=== PATIENT | male | born 1960 | race Two or more races ===

== ENCOUNTER 2016-12-12 20:30 | Emergency (ER) | payer OTHER ==
[~2016-12-12] VITALS: Ht 170.2 cm; Wt 108.0 kg
[~2016-12-12 20:30] MED LIST: AMLO5TAB4 PO; ASPI-495 PO; ATOR20TA PO; BLOO-129 IN; CARV12.52 PO; CYCL-289 PO; GABA-534 PO; GLIP10TA11 PO; HYDR12.5 PO
[2016-12-12 20:50] VITALS: BP 145/83
[2016-12-12 21:16] LABS: BASOPHILS # (AUTO) 0.1 /CMM (0.0-0.2); BASOPHILS % (AUTO) 0.4 % (0.0-2.0); EOSINOPHILS # (AUTO) 0.8 /CMM (0.0-0.7); EOSINOPHILS % (AUTO) 5.1 % (0.0-6.0); HEMATOCRIT 37 % (39-51); HEMOGLOBIN 12.3 g/dL (13.5-17.5); LYMPHOCYTES # (AUTO) 1.9 /CMM (0.8-4.8); LYMPHOCYTES % (AUTO) 12.9 % (20.0-44.0); MEAN CORPUSCULAR HEMOGLOBIN 29 PG (26.0-33.0); MEAN CORPUSCULAR HGB CONC 34 g/dl (31.0-36.0); MEAN CORPUSCULAR VOLUME 86 fL (80-96); MONOCYTES # (AUTO) 0.7 /CMM (0.1-1.30); MONOCYTES % (AUTO) 4.6 % (2.0-12.0); NEUTROPHILS # (AUTO) 11.3 /CMM (1.8-8.9); PLATELET COUNT (AUTO) 256 /CMM (150-450); RED BLOOD CELL COUNT(AUTO) 4.26 MIL/uL (4.5-6.0); WHITE BLOOD COUNT (AUTO) 14.8 K/uL (4.3-11.0)
--- NOTE | 2016-12-12 21:20 | NUR ---
AUTO DESIGN DETAILER AT FOR BLOOD DRAW.
[2016-12-12 21:24] LABS: CALCIUM, SERUM 8.1 mg/dL (8.5-10.1); CREATININE 4.7 mg/dL (0.6-1.3); POTASSIUM 4.3 mmol/L (3.5-5.1)
--- NOTE | 2016-12-12 22:55 | NUR ---
DPatient discharged to home in stable condition. Written and verbal after care instructions given. Patient verbalizes understanding of instruction.
== END 2016-12-12 22:57 | disposition home or self-care (01) ==
LOC: ER 20:33
DX: L02.31 Cutaneous abscess of buttock (principal); I12.9 Hypertensive chronic kidney disease with stage 1 through stage 4 chronic kidney disease, or unspecified chronic kidney disease; N18.9 Chronic kidney disease, unspecified; F17.200 Nicotine dependence, unspecified, uncomplicated; E11.22 Type 2 diabetes mellitus with diabetic chronic kidney disease; Z79.4 Long term (current) use of insulin; Z79.82 Long term (current) use of aspirin; Z86.718 Personal history of other venous thrombosis and embolism
CPT/HCPCS: 36415; 80048-TC; 85025-TC; A4606; Z7610

== ENCOUNTER 2017-03-14 12:59 | Inpatient (IN) | payer OTHER ==
[~2017-03-14] VITALS: Ht 172.7 cm; Wt 108.9 kg
--- NOTE | 2017-03-14 13:15 | NUR ---
ESTEFANÍA FROM HOME FOR NAUSEA, VOMITING AND DIZZINESS X YESTERDAY. PER REPORT HE HAD A RECENT EAR INFECTION AND WAS STARTED ON ABX. DENIES FEVER. VSS. SAFETY AND COMFORT MEASURES PROVIDED. WILL MONITOR.
--- NOTE | 2017-03-14 13:40 | NUR ---
IV ACCESS STARTED. BLOOD DRAWN FOR LABS.
[2017-03-14] MEDS ORDERED: PROCHLORPERAZINE EDISYLATE 10 MG/2 ML VIAL ONE (14:38)
[2017-03-14 14:45] LABS: BASOPHILS # (AUTO) 0.1 /CMM (0.0-0.2); BASOPHILS % (AUTO) 0.7 % (0.0-2.0); EOSINOPHILS # (AUTO) 0.5 /CMM (0.0-0.7); EOSINOPHILS % (AUTO) 4.3 % (0.0-6.0); HEMATOCRIT 40 % (39-51); HEMOGLOBIN 13.2 g/dL (13.5-17.5); LYMPHOCYTES # (AUTO) 1.8 /CMM (0.8-4.8); LYMPHOCYTES % (AUTO) 14.1 % (20.0-44.0); MEAN CORPUSCULAR HEMOGLOBIN 28 PG (26.0-33.0); MEAN CORPUSCULAR HGB CONC 33 g/dl (31.0-36.0); MEAN CORPUSCULAR VOLUME 85 fL (80-96); MONOCYTES # (AUTO) 0.4 /CMM (0.1-1.30); MONOCYTES % (AUTO) 3.1 % (2.0-12.0); NEUTROPHILS # (AUTO) 9.8 /CMM (1.8-8.9); NEUTROPHILS % (AUTO) 77.8 % (43.0-81.0); PLATELET COUNT (AUTO) 325 /CMM (150-450); RDW COEFFICIENT OF VARIATION 13.2 (11.5-15.0); RED BLOOD CELL COUNT(AUTO) 4.67 MIL/uL (4.5-6.0); WHITE BLOOD COUNT (AUTO) 12.6 K/uL (4.3-11.0)
[2017-03-14 14:58] LABS: ALBUMIN 3.2 g/dL (3.4-5.0); BILIRUBIN,TOTAL 0.3 mg/dL (0.2-1.0); CALCIUM, SERUM 8.6 mg/dL (8.5-10.1); CREATININE 4.7 mg/dL (0.6-1.3); POTASSIUM 4.5 mmol/L (3.5-5.1); TOTAL PROTEIN, SERUM 7.7 g/dL (6.4-8.2)
[2017-03-14] MEDS ORDERED: IV NS 0.9% 1,000 ML BAG IV ONE (15:00)
[2017-03-14] MEDS ORDERED: PROCHLORPERAZINE EDISYLATE 10 MG/2 ML VIAL IV ONE (15:00)
[2017-03-14] MEDS ORDERED: PROMETHAZINE HCL 25 MG/ML AMPUL ONE (15:10)
[2017-03-14] MEDS ORDERED: CEFEPIME 2 GM in IV NS 0.9% 100 ML IV ONE (15:30)
[2017-03-14] MEDS ORDERED: CEFEPIME 2 GM in IV D5W 100 ML IV SCH (15:30)
[2017-03-14] MEDS ORDERED: PROMETHAZINE HCL 50 MG/ML AMPUL IM ONE (15:30)
--- NOTE | 2017-03-14 15:35 | NUR ---
PT TAKEN TO CT.
[2017-03-14] MEDS ORDERED: HYDROCODONE/APAP 5/325MG 1 EACH TABLET PO PRN (16:30)
[2017-03-14] MEDS ORDERED: ACETAMINOPHEN 325 MG TABLET PO PRN (16:30)
[2017-03-14] MEDS ORDERED: ENOXAPARIN SODIUM 40 MG/0.4 ML DISP.SYRIN SQ SCH (16:30)
[2017-03-14] MEDS ORDERED: DEXTROSE 50%-WATER 50 ML DISP.SYRIN IV PRN (16:30)
[2017-03-14] MEDS ORDERED: MAGNESIUM HYDROXIDE 30 ML UDC PO PRN (16:30)
[2017-03-14] MEDS ORDERED: MAG HYDROX/AL HYDROX/SIMETH 30 ML UDC PO PRN (16:30)
[2017-03-14] MEDS ORDERED: HYDROCODONE/APAP 10/325MG 1 EA TABLET PO PRN (16:30)
[2017-03-14] MEDS ORDERED: ONDANSETRON HCL/PF 4 MG/2 ML VIAL IVP PRN (16:30)
--- NOTE | 2017-03-14 16:43 | NUR ---
REPORT GIVEN TO [facility] FOR MS [id number].
[2017-03-14 17:00] VITALS: BP 123/78
--- NOTE | 2017-03-14 17:00 | NUR ---
MS RN: ADMISSION NOTED PT CAME FROM HOME. PT ADMITTED FROM ER WITH DX OF VERTIGO DUE TO PREVIOUS EAR INFECTION. NO N/V NOTED. PT STILL DIZZY. A/OX4. NO DISTRESS NOTED. NO SOB NOTED. NO PAIN NOTED. AMBULATORY. UNABLE TO AMBULATE DUE TO VERTIGO. URINAL AT BEDSIDE. BSC. FALL RISK IN PLACE. SKIN INTACT. BLE DRYNESS ON FEET. R HAND #20 SL. SITE CLEAR AND PATENT. NO REDNESS OR BLEEDING NOTED. VS STABLE. BP 123/78, PULSE 84, RR18, TEMP 97.2, O2 99% ON ROOM AIR. ORDERED NOT TO DRAW BLOOD OR TAKE BLOOD PRESSURE ON LEFT ARM. ONLY USE RIGHT ARM. RESTING COMFORTABLY IN BED. CALL LIGHT WITHIN REACH.
[2017-03-14] MEDS: GABAPENTIN 300 MG CAPSULE PO SCH (17:38)
[2017-03-14] MEDS: CARVEDILOL 12.5 MG TABLET PO SCH (17:38)
[2017-03-14] MEDS: IV NS 0.9% 1,000 ML IV PRN (17:38)
[2017-03-14] MEDS: BLOOD SUGAR DIAGNOSTIC 1 EACH STRIP VI SCH ×2 (17:40→21:41)
[2017-03-14] MEDS: ENOXAPARIN SODIUM 30 MG/0.3 ML DISP.SYRIN SQ SCH (17:43)
[2017-03-14] MEDS: INSULIN REGULAR, HUMAN 100 UNIT/ML 3 ML VIAL SQ PRN (18:32)
--- NOTE | 2017-03-14 18:44 | NUR ---
MS RN: CLOSING NOTE A/OX4. PT TOOK ALL MEDICATION ON TIME. NO ADVERSE REACTIONS NOTED. NO PAIN NOTED. VERTIGO IS DECREASED. ABLE TO AMBULATE. USES URINAL. SKIN INTACT. BLE FEET DRYNESS. WOUND CONSULT ORDERED. ON [facility] DIET. INSULIN GIVEN PER SLIDING SCALE. R HAND #22 RUNNING NS AT 75ML/HR. SITE CLEAR AND PATENT. DO NOT USE LEFT HAND FOR ANYTHING. NO LAB DRAWS OR BP CHECKS. GOING TO HAVE PORT INSERTED IN THE FUTURE FOR DIALYSIS. RESTING COMFORTABLY IN BED. CALL LIGHT WITHIN REACH.
--- NOTE | 2017-03-14 19:25 | NUR ---
RN OPEN NOTES RECEIVED PATIENT AWAKE IN BED WITH FAMILY AT BEDSIDE. A/O X4. NO SIGNS OF DISTRESS OR DISCOMFORT. BREATHING EVEN AND UNLABORED. IV ACCESS IN R HAND WITH NS INFUSING, PATENT AND INTACT, NO SIGNS OF REDNESS OR INFILTRATION. BED IN LOW LOCKED POSITION WITH SIDE RAILS X2. CALL LIGHT WITHIN REACH. WILL CONTINUE TO MONITOR.
[2017-03-14 20:00] VITALS: BP 149/81
[2017-03-14] MEDS ORDERED: CEFEPIME 1 GM in IV D5W 50 ML IV SCH (21:00)
[2017-03-14] MEDS: *INSULIN REGULAR(HUMULIN R)HUM 100 UNIT/ML VIAL SQ PRN (21:40)
[2017-03-15 05:29] LABS: APPEARANCE,URINE CLEAR (CLEAR); BILIRUBIN,URINE NEGATIVE (NEGATIVE); BLOOD, URINE 1+ Ery/uL (NEGATIVE); COLOR,URINE YELLOW (YELLOW); KETONES,URINE NEGATIVE (NEGATIVE); LEUKOCYTE ESTERASE ,URINE NEGATIVE (NEGATIVE); NITRITE, URINE NEGATIVE (NEGATIVE); PROTEIN,URINE 3+ mg/dl (NEGATIVE); UGLUCOSE 3+ mg/dL (NEGATIVE); UROBILINOGEN,URINE 0.2 EU/dL (0.2)
[2017-03-15 05:43] LABS: BACTERIA,URINE None seen /HPF (None Seen); RBC,URINE 0-2 /HPF (0-2); SQUAMOUS EPITHELIAL CELL,UR Few /HPF (None Seen)
[2017-03-15 05:44] LABS: COARSE GRANULAR CASTS,URINE Few /LPF (None Seen); HYALINE CASTS, URINE Few /LPF (None Seen); URINE AMORPHOUS URATE Few /HPF (None Seen)
[2017-03-15] MEDS: BLOOD SUGAR DIAGNOSTIC 1 EACH STRIP VI SCH ×4 (06:49→21:53)
[2017-03-15] MEDS: IV NS 0.9% 1,000 ML IV PRN (07:08)
--- NOTE | 2017-03-15 07:19 | NUR ---
RN CLOSING NOTES PATIENT AWAKE IN BED WITH FAMILY AT BEDSIDE. A/O X4. NO SIGNS OF DISTRESS OR DISCOMFORT. BREATHING EVEN AND UNLABORED. IV ACCESS IN R HAND WITH NS INFUSING, PATENT AND INTACT, NO SIGNS OF REDNESS OR INFILTRATION. NO SIGNIFICANT CHANGES THROUGH THE NIGHT. ALL NEEDS MET. BED IN LOW LOCKED POSITION WITH SIDE RAILS X2. CALL LIGHT WITHIN REACH. WILL ENDORSE TO AM SHIFT FOR [place].
--- NOTE | 2017-03-15 07:30 | NUR ---
MS JOANNA OPENING RECEIVED PATIENT A/OX4 SITTING UP IN BED. PATIENT C/O OF WORSENING DIZZINESS WHEN LAYING DOWN AND GETS BETTER WHEN SITTING UP. PATIENT STATES HE IS WALKING TO RESTROOM ON HIS OWN. EDUCATED PATIENT ON FALL PREVENTION AND NOTIFIED TO NOT WALK WITHOUT STAND BY ASSIST DUE TO DIZZINESS. WALKER PROVIDED TO PATIENT HOWEVER HE HAS REFUSED. BED ALARM ON. AFTER EDUCATED ON FALL PRECAUTIONS PATIENT CONTINUES TO GET OUT OF BED WITHOUT CALLING FOR ASSISTANCE. PATIENT DENIES SOB, DIFFICULTY BREATHING OR PAIN AT THIS TIME. APPEARS STABLE. ALL NEEDS IN REACH. WILL ROUND Q2H OR LESS PER NEEDS. PATIENT BED LOWERED AND LOCKED, RAILS UPX3. BED ALARM PUT ON FOR PATIENT SAFETY.
[2017-03-15 07:34] LABS: BASOPHILS # (AUTO) 0.1 /CMM (0.0-0.2); BASOPHILS % (AUTO) 0.8 % (0.0-2.0); EOSINOPHILS # (AUTO) 0.6 /CMM (0.0-0.7); HEMATOCRIT 36 % (39-51); HEMOGLOBIN 12.1 g/dL (13.5-17.5); LYMPHOCYTES # (AUTO) 2.5 /CMM (0.8-4.8); LYMPHOCYTES % (AUTO) 17.7 % (20.0-44.0); MEAN CORPUSCULAR HEMOGLOBIN 29 PG (26.0-33.0); MEAN CORPUSCULAR HGB CONC 33 g/dl (31.0-36.0); MEAN CORPUSCULAR VOLUME 86 fL (80-96); MONOCYTES # (AUTO) 0.6 /CMM (0.1-1.30); NEUTROPHILS # (AUTO) 10.5 /CMM (1.8-8.9); NEUTROPHILS % (AUTO) 73.5 % (43.0-81.0); PLATELET COUNT (AUTO) 275 /CMM (150-450); RDW COEFFICIENT OF VARIATION 14.1 (11.5-15.0); RED BLOOD CELL COUNT(AUTO) 4.19 MIL/uL (4.5-6.0); WHITE BLOOD COUNT (AUTO) 14.3 K/uL (4.3-11.0)
[2017-03-15 07:43] LABS: CALCIUM, SERUM 8.5 mg/dL (8.5-10.1); CREATININE 4.5 mg/dL (0.6-1.3); MAGNESIUM 1.7 mg/dL (1.8-2.4); PHOSPHORUS 4.6 mg/dL (2.5-4.9); POTASSIUM 4.5 mmol/L (3.5-5.1)
[2017-03-15 08:00] VITALS: BP 134/75
[2017-03-15] MEDS: ATORVASTATIN 10 MG TABLET PO SCH (08:38)
[2017-03-15] MEDS: AMLODIPINE BESYLATE 5 MG TABLET PO SCH (08:38)
[2017-03-15] MEDS: GABAPENTIN 300 MG CAPSULE PO SCH ×3 (08:38→16:48)
[2017-03-15] MEDS: ASPIRIN EC 81 MG TABLET.DR PO SCH (08:38)
[2017-03-15] MEDS: CARVEDILOL 12.5 MG TABLET PO SCH ×2 (08:38→16:51)
[2017-03-15] MEDS: CYCLOBENZAPRINE 10 MG TABLET PO SCH (08:39)
[2017-03-15] MEDS ORDERED: HYDROCHLOROTHIAZIDE 25 MG TABLET PO SCH (09:00)
[2017-03-15] MEDS ORDERED: FEE PK DOSING 1 MIN EA MC ONE ×2 (09:15→09:17)
[2017-03-15] MEDS ORDERED: VANCOMYCIN 1 GM in IV D5W 250 ML IV SCH (10:00)
[2017-03-15] MEDS: INSULIN REGULAR, HUMAN 100 UNIT/ML 3 ML VIAL SQ PRN ×2 (12:25→16:57)
[2017-03-15 13:23] LABS: CREATININE, URINE 60.6 MG/DL (30.0-125.0); URINE TOTAL PROTEIN 431.7 mg/dL (0-11.9)
--- NOTE | 2017-03-15 15:42 | NUR ---
MS RN NOTES CONFIRMED WITH DR FÁTIMA JOSHI TO DC IVF FOR PATIENT
[2017-03-15 16:00] VITALS: BP 140/87
[2017-03-15] MEDS: CEFEPIME 1 GM in IV D5W 50 ML IV SCH (16:48)
--- NOTE | 2017-03-15 18:00 | NUR ---
MS RN NOTES DR NOONAN AWARE OF MRSA NARES.
--- NOTE | 2017-03-15 19:21 | NUR ---
MS RN CLOSING PATIENT STABLE. ALL DUE MEDS GIVEN AND ALL NEEDS MET. PATIENT NEEDS IN REACH. BED LOWERED AND LOCKED, RAILS UPX3 FOR SAFETY AND CARE ENDORSED TO FERDINAND MARSHALL FOR [place]
[2017-03-15 20:00] VITALS: BP 149/83
--- NOTE | 2017-03-15 20:10 | NUR ---
RN OPEN NOTES RECEIVED PATIENT AWAKE IN BED. A/O X4. NO SIGNS OF DISTRESS OR DISCOMFORT. BREATHING EVEN AND UNLABORED. IV ACCESS IN R HAND WITH NS INFUSING, PATENT AND INTACT, NO SIGNS OF REDNESS OR INFILTRATION. BED IN LOW LOCKED POSITION WITH SIDE RAILS X2. CALL LIGHT WITHIN REACH. WILL CONTINUE TO MONITOR.
[2017-03-15] MEDS: *INSULIN REGULAR(HUMULIN R)HUM 100 UNIT/ML VIAL SQ PRN (21:52)
[2017-03-15] MEDS: ENOXAPARIN SODIUM 30 MG/0.3 ML DISP.SYRIN SQ SCH (21:53)
[2017-03-15] MEDS: MUPIROCIN OINT 2% 22 GM TUBE SCH (21:54)
[2017-03-15] MEDS: ZOLPIDEM TARTRATE 5 MG TABLET PO PRN (22:13)
--- NOTE | 2017-03-15 22:15 | NUR ---
RN NOTES ADMINISTERED AMBIEN 5MG ORDERED FOR INSOMNIA. WILL CONTINUE TO MONITOR.
[2017-03-16] MEDS: BLOOD SUGAR DIAGNOSTIC 1 EACH STRIP VI SCH ×4 (06:27→21:10)
[2017-03-16] MEDS: INSULIN REGULAR, HUMAN 100 UNIT/ML 3 ML VIAL SQ PRN ×4 (06:29→21:16)
[2017-03-16 07:02] LABS: BASOPHILS # (AUTO) 0.1 /CMM (0.0-0.2); BASOPHILS % (AUTO) 0.8 % (0.0-2.0); EOSINOPHILS # (AUTO) 0.6 /CMM (0.0-0.7); EOSINOPHILS % (AUTO) 5.3 % (0.0-6.0); HEMATOCRIT 35 % (39-51); HEMOGLOBIN 11.7 g/dL (13.5-17.5); LYMPHOCYTES # (AUTO) 2.4 /CMM (0.8-4.8); MEAN CORPUSCULAR HEMOGLOBIN 29 PG (26.0-33.0); MEAN CORPUSCULAR HGB CONC 34 g/dl (31.0-36.0); MEAN CORPUSCULAR VOLUME 87 fL (80-96); MONOCYTES # (AUTO) 0.5 /CMM (0.1-1.30); MONOCYTES % (AUTO) 4.3 % (2.0-12.0); NEUTROPHILS # (AUTO) 7.8 /CMM (1.8-8.9); NEUTROPHILS % (AUTO) 68.6 % (43.0-81.0); PLATELET COUNT (AUTO) 235 /CMM (150-450); WHITE BLOOD COUNT (AUTO) 11.3 K/uL (4.3-11.0)
[2017-03-16 07:13] LABS: ALBUMIN 2.5 g/dL (3.4-5.0); BILIRUBIN,TOTAL 0.3 mg/dL (0.2-1.0); CALCIUM, SERUM 8.5 mg/dL (8.5-10.1); CREATININE 4.5 mg/dL (0.6-1.3); MAGNESIUM 1.6 mg/dL (1.8-2.4); PHOSPHORUS 4.6 mg/dL (2.5-4.9); POTASSIUM 4.3 mmol/L (3.5-5.1); TOTAL PROTEIN, SERUM 6.6 g/dL (6.4-8.2)
--- NOTE | 2017-03-16 07:15 | NUR ---
MS RN OPENING NOTE RECEIVED SBAR REPORT AT THE BEDSIDE. PATIENT IS A/OX4 SLEEPING IN BED, EASILY AWAKEN. PATIENT DENIES SOB, DIFFICULTY BREATHING/PAIN AT THIS TIME. R/HAND IV IS INTACT/SL. NO S/S INFILTRATION ON IV SITE. BED IS LOCKED, IN LOWEST POSITION, SIDE RAILS UP X2, BED ALARM IS ON. PATIENT IS IN HIGH BENSON'S POSITION. ALL NEEDS MET AT THIS TIME. CALL LIGHT WITHIN REACH. PATIENT WAS EDUCATED TO USE THE CALL LIGHT TO CALL FOR ASSISTANCE AND VERBALIZED FULL UNDERSTANDING OF THE TEACHINGS. WILL CONTINUE TO ASSESS/MONITOR THROUGHOUT THE SHIFT.
--- NOTE | 2017-03-16 07:33 | NUR ---
RN CLOSING NOTES PATIENT RESTING IN BED, EASILY AROUSABLE. A/O X4. NO SIGNS OF DISTRESS OR DISCOMFORT. BREATHING EVEN AND UNLABORED. IV ACCESS IN R HAND, PATENT AND INTACT, NO SIGNS OF REDNESS OR INFILTRATION. ALL NEEDS MET. NO SIGNIFICANT CHANGES THROUGH THE NIGHT. BED IN LOW LOCKED POSITION WITH SIDE RAILS X2. CALL LIGHT WITHIN REACH. ENDORSED TO AM SHIFT FOR [place].
[2017-03-16 08:00] VITALS: BP 148/87
--- NOTE | 2017-03-16 08:57 | NUR ---
MS RN NOTE NEURONTIN WAS NOT STOCKED IN THE OMNICELL. NEURONTIN REMOVED FROM THE ALTERNATE OMNICELL AND ADMINISTERED ONCE PRESCRIBED.
[2017-03-16] MEDS: ATORVASTATIN 10 MG TABLET PO SCH (09:07)
[2017-03-16] MEDS: LACTOBACILLUS RHAMNOSUS GG 1 EACH CAP.SPRINK PO SCH ×2 (09:07→16:42)
[2017-03-16] MEDS: MUPIROCIN OINT 2% 22 GM TUBE SCH ×2 (09:07→21:07)
[2017-03-16] MEDS: ASPIRIN EC 81 MG TABLET.DR PO SCH (09:08)
[2017-03-16] MEDS: CYCLOBENZAPRINE 10 MG TABLET PO SCH (09:08)
[2017-03-16] MEDS: GABAPENTIN 300 MG CAPSULE PO SCH ×3 (09:08→16:42)
[2017-03-16] MEDS: AMLODIPINE BESYLATE 5 MG TABLET PO SCH (09:09)
[2017-03-16] MEDS: CARVEDILOL 12.5 MG TABLET PO SCH ×2 (09:10→16:42)
--- NOTE | 2017-03-16 10:05 | NUR ---
MS RN NOTE DR GOLDSTEIN AT THE BEDSIDE. NO NEW ORDERS RECEIVED AT THIS TIME.
[2017-03-16] MEDS: VANCOMYCIN 0.75 GM in IV D5W 250 ML IV SCH (10:45)
--- NOTE | 2017-03-16 12:14 | NUR ---
MS RN NOTE OBTAINED URINE SPECIMEN PER DR. GOLDSTEIN'S ORDER. LAB IS INFORMED TO COLLECT THE SPECIMEN.
[2017-03-16] MEDS: Z GUARD REMEDY 2 OZ OINT TP PRN ×2 (12:34→17:56)
[2017-03-16 12:38] LABS: APPEARANCE,URINE CLEAR (CLEAR); BILIRUBIN,URINE NEGATIVE (NEGATIVE); BLOOD, URINE 1+ Ery/uL (NEGATIVE); COLOR,URINE YELLOW (YELLOW); KETONES,URINE NEGATIVE (NEGATIVE); LEUKOCYTE ESTERASE ,URINE NEGATIVE (NEGATIVE); NITRITE, URINE NEGATIVE (NEGATIVE); PROTEIN,URINE 2+ mg/dl (NEGATIVE); UGLUCOSE 3+ mg/dL (NEGATIVE); UROBILINOGEN,URINE 0.2 EU/dL (0.2)
--- NOTE | 2017-03-16 13:48 | NUR ---
MS MARSHALL NOTE PATIENT WAS AMBULATING AROUND THE UNIT AND ASKED TO BE CONNECTED TO THE IV LATER. WILL ADMINISTER LATER REQUESTED BY THE PATIENT Addendum: 03/16/17 at 1452 by NONI HERMOSILLO RN MAGNESIUM ADMINISTRATION
[2017-03-16] MEDS: Magnesium 1GM/D5W 100ML PREMIX 100 ML IV SCH ×2 (14:50→16:25)
[2017-03-16 15:51] LABS: BACTERIA,URINE None seen /HPF (None Seen); CLINITEST,URINE 3; SQUAMOUS EPITHELIAL CELL,UR Few /HPF (None Seen); WBC,URINE 0-2 /HPF (0-3)
[2017-03-16 16:00] VITALS: BP 143/83
[2017-03-16 16:04] LABS: CREATININE, URINE 51.3 MG/DL (30.0-125.0); URINE TOTAL PROTEIN 394.8 mg/dL (0-11.9)
[2017-03-16] MEDS: CEFEPIME 1 GM in IV D5W 50 ML IV SCH (17:41)
--- NOTE | 2017-03-16 17:58 | NUR ---
MS RN NOTE PATIENT COMPLAINS OF MILD-MODERATE PAIN RATING 5-6/10 IN LOW BACK AREA. PRN TYLENOL IS ADMINISTERED PRESCRIBED.
--- NOTE | 2017-03-16 19:05 | NUR ---
MS RN CLOSING NOTE PATIENT IS A/OX4 AWAKE IN BED. PATIENT DENIES SOB, DIFFICULTY BREATHING/PAIN AT THIS TIME. R/HAND IV IS INTACT/SL. NO S/S INFILTRATION ON IV SITE. BED IS LOCKED, IN LOWEST POSITION, SIDE RAILS UP X2, BED ALARM IS ON. PATIENT IS IN HIGH BENSON'S POSITION. ALL NEEDS MET AT THIS TIME. CALL LIGHT WITHIN REACH. PATIENT WAS EDUCATED TO USE THE CALL LIGHT TO CALL FOR ASSISTANCE AND VERBALIZED FULL UNDERSTANDING OF THE TEACHINGS. WILL INFORCE TO THE EMPLOYEE OPERATIONS EXAMINER NURSE FOR [place].
--- NOTE | 2017-03-16 19:51 | NUR ---
RN OPENING NOTES PT IS RESTING IN BED WITH SISTER AT BEDSIDE. NO COMPLAINTS OF PAIN OR DISCOMFORT AT THIS TIME. NO SOB OR DIZZINESS. PT RIGHT HAND IV #20 IS PATENT AND INTACT. SAFETY PRECAUTIONS IN PLACE, BED IN LOW LOCKED POSITION, X2 SIDERAILS UP. CALL LIGHT WITHIN REACH. WILL CONTINUE TO MONITOR.
[2017-03-16 20:00] VITALS: BP 151/81
[2017-03-16] MEDS: ENOXAPARIN SODIUM 30 MG/0.3 ML DISP.SYRIN SQ SCH (21:14)
[2017-03-16] MEDS: ZOLPIDEM TARTRATE 5 MG TABLET PO PRN (21:38)
--- NOTE | 2017-03-16 21:38 | NUR ---
RN NOTES PT REQUESTED PRN ROBINSON TO HELP HIM SLEEP. WILL ADMINISTER AND CONTINUE TO MONITOR.
[2017-03-17] MEDS: BLOOD SUGAR DIAGNOSTIC 1 EACH STRIP VI SCH ×2 (06:01→12:14)
--- NOTE | 2017-03-17 07:04 | NUR ---
RN CLOSING NOTES PT IS RESTING IN BED. NO COMPLAINTS OF PAIN OR DISCOMFORT OVERNIGHT. NO SOB OR DIZZINESS. PT RIGHT HAND IV #20 IS PATENT AND INTACT. PT AMBULATORY. SAFETY PRECAUTIONS IN PLACE, BED IN LOW LOCKED POSITION, X2 SIDERAILS UP. CALL LIGHT WITHIN REACH. WILL ENDORSE TO DAY SHIFT NURSE FOR CONTINUITY OF CARE.
[2017-03-17 07:15] LABS: CALCIUM, SERUM 8.7 mg/dL (8.5-10.1); CREATININE 4.5 mg/dL (0.6-1.3); POTASSIUM 4.3 mmol/L (3.5-5.1)
[2017-03-17 08:00] VITALS: BP 143/68
--- NOTE | 2017-03-17 08:09 | NUR ---
RN NOTES RECEIVED PT. PT IS STABLE AND RESTING IN BED. A/OX4. NO S/S OF DISTRESS OR SOB. PT DENIES PRESENCE OF PAIN AT THIS TIME. PT IS ON RA, O2 SAT WNL. IV ACCESS LOCATED ON RIGHT HAND 20G, SL. PER HAND OR MACHINE PASTER REPORT NO BP IS TO BE TAKEN ON LEFT ARM DUE TO AV GRAFT. SAFETY MEASURES IN PLACE, CALL LIGHT WITHIN REACH. WILL CONTINUE TO MONITOR.
[2017-03-17] MEDS: ASPIRIN EC 81 MG TABLET.DR PO SCH (09:21)
[2017-03-17] MEDS: CYCLOBENZAPRINE 10 MG TABLET PO SCH (09:22)
[2017-03-17] MEDS: ATORVASTATIN 10 MG TABLET PO SCH (09:22)
[2017-03-17] MEDS: GABAPENTIN 300 MG CAPSULE PO SCH ×2 (09:22→12:14)
[2017-03-17] MEDS: LACTOBACILLUS RHAMNOSUS GG 1 EACH CAP.SPRINK PO SCH (09:22)
[2017-03-17 09:23] VITALS: BP 143/68
[2017-03-17] MEDS: CARVEDILOL 12.5 MG TABLET PO SCH (09:23)
[2017-03-17] MEDS: AMLODIPINE BESYLATE 5 MG TABLET PO SCH (09:23)
[2017-03-17] MEDS: MUPIROCIN OINT 2% 22 GM TUBE SCH (09:31)
[2017-03-17] MEDS: VANCOMYCIN 0.75 GM in IV D5W 250 ML IV SCH (10:27)
[2017-03-17] MEDS ORDERED: LEVO250T2 PO (12:02)
[2017-03-17] MEDS ORDERED: DOXY150T PO (12:02)
[2017-03-17] MEDS: INSULIN REGULAR, HUMAN 100 UNIT/ML 3 ML VIAL SQ PRN (12:15)
[2017-03-17] MEDS ORDERED: DOXY100C2 PO (12:25)
[2017-03-17] MEDS ORDERED: LEVO250T59 PO (12:25)
--- NOTE | 2017-03-17 15:08 | NUR ---
DISCHARGE NOTE PT DISCHARGED TO HOME. VSS, NO S/S OF RESPIRATORY DISTRESS OR SOB. NO C/O PAIN AT THIS TIME. PT PRESCRIPTION FOR ABX ELECTRONICALLY SENT TO PREFERRED PHARMACY. PT GIVEN EXIT CARE AND DISCHARGE INSTRUCTIONS. PT VERBALIZES UNDERSTANDING OF BOTH. D/C INSTRUCTIONS AND BELONGINGS SHEET SIGNED, COPIED AND PLACED IN CHART. PT REFUSED TO HAVE PICTURES OF BILATERAL LOWER EXTREMITIES TAKEN. ID BAND AND IV ACCESS REMOVED. PT WAS PICKED UP BY SISTER AND TAKEN HOME IN A PRIVATE CAR.
[2017-03-18 12:09] LABS: *SPE ALBUMIN 2.9 g/dL (2.9-4.4); *SPE ALPHA-1-GLOBULIN 0.2 g/dL (0.0-0.4); *SPE BETA GLOBULIN 0.9 g/dL (0.7-1.3); *SPE GLOBULIN, TOTAL 2.8 g/dL (2.2-3.9); *SPE M-SPIKE Not Observed g/dL (Not Observed); *SPEGAMMA GLOBULIN 0.8 g/dL (0.4-1.8)
[2017-03-19 11:49] LABS: CALCITRIOL VIT D,1, 25 DIHYDRO 7.9 pg/mL (19.9-79.3)
[2017-03-19 13:11] LABS: PTH, INTACT 193 pg/mL (15-65)
== END 2017-03-17 13:40 | disposition home or self-care (01) | DRG 115 ==
LOC: ER 13:00 → MED 16:32
PROVIDERS: ADMIT Internal Medicine; ATTEND Internal Medicine
DX: H60.21 Malignant otitis externa, right ear (principal); N18.4 Chronic kidney disease, stage 4 (severe); E11.22 Type 2 diabetes mellitus with diabetic chronic kidney disease; I12.9 Hypertensive chronic kidney disease with stage 1 through stage 4 chronic kidney disease, or unspecified chronic kidney disease; E11.40 Type 2 diabetes mellitus with diabetic neuropathy, unspecified; Z68.36 Body mass index [BMI] 36.0-36.9, adult; E66.01 Morbid (severe) obesity due to excess calories; E78.5 Hyperlipidemia, unspecified; E83.42 Hypomagnesemia; F17.210 Nicotine dependence, cigarettes, uncomplicated; R42 Dizziness and giddiness; E11.65 Type 2 diabetes mellitus with hyperglycemia; E83.9 Disorder of mineral metabolism, unspecified; Z22.322 Carrier or suspected carrier of Methicillin resistant Staphylococcus aureus; Q18.1 Preauricular sinus and cyst; Z79.84 Long term (current) use of oral hypoglycemic drugs
CPT/HCPCS: 36415; 70450-TC; 80048-TC; 80053-TC; 80076-TC; 80202-TC; 80305; 81000-TC; 82306; 82550-TC; 82570-TC; 82652; 82962-TC; 83735-TC; 83970; 84100-TC; 84155; 84155-TC; 84165; 84300-TC; 85025-TC; 87081-TC; 87086-TC; A4606; J0692; J0780; J1650; J1815; J2550; J3370; J3475; J7030; J7060; Z7610

== ENCOUNTER 2017-06-22 10:00 | Emergency (ER) | payer OTHER ==
[~2017-06-22] VITALS: Ht 170.2 cm; Wt 108.9 kg
[~2017-06-22 10:00] MED LIST changes: +DOXY100C2 PO; +DOXY150T PO; +LEVO250T59 PO
--- NOTE | 2017-06-22 10:00 | NUR ---
BBRA 889 FROM HOME C/O DIZZINESS X1 DAY. LAST BS 87 LAST NIGHT. RECENTLY NEWLY PLACED SHUNT ON LEFT ARM. VSS. SEEN BY MD FOR EVAL. SAFETY AND COMFORT MEASURES PROVIDED. WILL MONITOR.
[2017-06-22] MEDS ORDERED: MECLIZINE HCL 25 MG TABLET ONE (10:18)
[2017-06-22] MEDS ORDERED: LORAZEPAM INJ 2 MG/ML VIAL ONE (10:19)
[2017-06-22] MEDS ORDERED: LORAZEPAM INJ 2 MG/ML VIAL IV ONE (10:30)
[2017-06-22] MEDS ORDERED: MECLIZINE HCL 12.5 MG TABLET PO ONE (10:30)
--- NOTE | 2017-06-22 10:30 | NUR ---
IV ACCESS STARTED. BLOOD DRAWN FOR LABS. MEDICATED ORDERED.
[2017-06-22 10:31] LABS: BASOPHILS # (AUTO) 0.1 /CMM (0.0-0.2); BASOPHILS % (AUTO) 0.7 % (0.0-2.0); EOSINOPHILS # (AUTO) 0.5 /CMM (0.0-0.7); HEMATOCRIT 34 % (39-51); HEMOGLOBIN 11.3 g/dL (13.5-17.5); LYMPHOCYTES # (AUTO) 1.8 /CMM (0.8-4.8); LYMPHOCYTES % (AUTO) 18.4 % (20.0-44.0); MEAN CORPUSCULAR HEMOGLOBIN 29 PG (26.0-33.0); MEAN CORPUSCULAR HGB CONC 34 g/dl (31.0-36.0); MEAN CORPUSCULAR VOLUME 86 fL (80-96); MONOCYTES # (AUTO) 0.4 /CMM (0.1-1.30); MONOCYTES % (AUTO) 4.3 % (2.0-12.0); NEUTROPHILS # (AUTO) 6.9 /CMM (1.8-8.9); NEUTROPHILS % (AUTO) 71.6 % (43.0-81.0); PLATELET COUNT (AUTO) 302 /CMM (150-450); RDW COEFFICIENT OF VARIATION 13.2 (11.5-15.0); RED BLOOD CELL COUNT(AUTO) 3.93 MIL/uL (4.5-6.0); WHITE BLOOD COUNT (AUTO) 9.7 K/uL (4.3-11.0)
[2017-06-22 10:40] LABS: CALCIUM, SERUM 8.3 mg/dL (8.5-10.1); POTASSIUM 4.3 mmol/L (3.5-5.1)
[2017-06-22] MEDS ORDERED: AMLO5TAB2 PO (11:39)
[2017-06-22] MEDS ORDERED: LORA10TA7 PO (11:39)
[2017-06-22] MEDS ORDERED: ASPI-1152 PO (11:39)
[2017-06-22] MEDS ORDERED: ALBU8.5H8 IH (11:39)
[2017-06-22] MEDS ORDERED: CITR30SO PO (11:39)
[2017-06-22] MEDS ORDERED: FURO80TA3 PO (11:39)
[2017-06-22] MEDS ORDERED: CARV6.252 PO (11:39)
[2017-06-22] MEDS ORDERED: LOSA50TA21 PO (11:39)
[2017-06-22] MEDS ORDERED: FLUT16SP16 BNOSTRILS (11:39)
[2017-06-22] MEDS ORDERED: MOME13HF IH (11:39)
[2017-06-22] MEDS ORDERED: LOSA100T15 PO (11:39)
[2017-06-22] MEDS ORDERED: INSU100V30 SQ (11:42)
--- NOTE | 2017-06-22 12:00 | NUR ---
IV removed. Catheter intact and site benign. Pressure and 4x4 applied to site. No bleeding noted.
--- NOTE | 2017-06-22 12:06 | NUR ---
Patient discharged to home in stable condition. Written and verbal after care instructions given. Patient verbalizes understanding of instruction.
[2017-06-22 12:10] VITALS: BP 128/71
== END 2017-06-22 12:11 | disposition home or self-care (01) ==
LOC: ER 10:01
DX: H81.399 Other peripheral vertigo, unspecified ear (principal); I12.0 Hypertensive chronic kidney disease with stage 5 chronic kidney disease or end stage renal disease; E10.22 Type 1 diabetes mellitus with diabetic chronic kidney disease; N18.6 End stage renal disease; F17.200 Nicotine dependence, unspecified, uncomplicated; Z79.4 Long term (current) use of insulin; Z79.82 Long term (current) use of aspirin; Z86.718 Personal history of other venous thrombosis and embolism; Z99.2 Dependence on renal dialysis; Z98.890 Other specified postprocedural states
CPT/HCPCS: 36415; 80048; 82962; 85025; 93005; 96374; 99285; A4606; J2060; J8597; Z7610

== ENCOUNTER 2017-07-03 21:11 | Emergency (ER) | payer OTHER ==
[~2017-07-03] VITALS: Ht 154.9 cm; Wt 106.1 kg
[~2017-07-03 21:11] MED LIST changes: +ALBU8.5H8 IH; -AMLO5TAB4 PO; +AMLO5TAB7 PO; +ASPI-1152 PO; -ASPI-495 PO; -CARV12.52 PO; +CARV6.252 PO; +CITR30SO PO; -CYCL-289 PO; -DOXY100C2 PO; -DOXY150T PO; +FLUT16SP16 BNOSTRILS; +FURO80TA3 PO; -GLIP10TA11 PO; -HYDR12.5 PO; +INSU100V30 SQ; -LEVO250T59 PO; +LORA10TA7 PO; +LOSA100T15 PO; +LOSA50TA21 PO; +MOME13HF IH
--- NOTE | 2017-07-03 21:15 | NUR ---
TO BED 15 A 56 YO MALE PATIENT BBSELF C/O "COUGH/BODYACHES X2 DAYS"; WHEEZING. PT WITH HX OF COPD. PATIENT IS AAOX3, NAD NOTED. VSS. SKIN WARM AND DRY. COMFORT MEASURE RENDERED.
--- NOTE | 2017-07-03 21:50 | NUR ---
STARTED A SALINE LOCK ON THE RIGHT HAND G18, BLOOD DRAWN AND SENT TO LAB.
[2017-07-03] MEDS ORDERED: ALBUTEROL FS 2.5 MG/3 ML VIAL.NEB ONE (21:59)
[2017-07-03] MEDS ORDERED: IPRATROPIUM NEB FS 0.5 MG/2.5 ML AMPUL.NEB ONE (21:59)
[2017-07-03] MEDS ORDERED: ALBUTEROL FS 2.5 MG/3 ML VIAL.NEB NEB ONE (22:00)
[2017-07-03] MEDS ORDERED: IPRATROPIUM NEB FS 0.5 MG/2.5 ML AMPUL.NEB NEB ONE (22:00)
[2017-07-03 22:04] LABS: BASOPHILS % (AUTO) 0.7 % (0.0-2.0); EOSINOPHILS % (AUTO) 5.8 % (0.0-6.0); HEMATOCRIT 33 % (39-51); HEMOGLOBIN 10.9 g/dL (13.5-17.5); LYMPHOCYTES # (AUTO) 1.7 /CMM (0.8-4.8); LYMPHOCYTES % (AUTO) 24.5 % (20.0-44.0); MEAN CORPUSCULAR HGB CONC 33 g/dl (31.0-36.0); MEAN CORPUSCULAR VOLUME 87 fL (80-96); MONOCYTES # (AUTO) 0.5 /CMM (0.1-1.30); MONOCYTES % (AUTO) 7.2 % (2.0-12.0); NEUTROPHILS # (AUTO) 4.3 /CMM (1.8-8.9); NEUTROPHILS % (AUTO) 61.8 % (43.0-81.0); PLATELET COUNT (AUTO) 154 /CMM (150-450); RDW COEFFICIENT OF VARIATION 14.5 (11.5-15.0); RED BLOOD CELL COUNT(AUTO) 3.78 MIL/uL (4.5-6.0)
[2017-07-03 22:18] LABS: INR 0.97 (0.87-1.13)
[2017-07-03 22:25] LABS: CALCIUM, SERUM 7.7 mg/dL (8.5-10.1); CARBON DIOXIDE 20 mmol/L (21-32); CHLORIDE 102 mmol/L (98-107); CREATININE 5.8 mg/dL (0.6-1.3); GLUCOSE 116 mg/dL (74-106); POTASSIUM 4.7 mmol/L (3.5-5.1); SODIUM SERUM 136 mmol/L (136-145)
[2017-07-03 22:27] LABS: UREA NITROGEN, BLOOD 80 mg/dL (7-18)
[2017-07-03 22:39] LABS: ALANINE AMINOTRANSFERASE 26 U/L (12-78); ALKALINE PHOSPHATASE 151 U/L (46-116); BILIRUBIN,DIRECT 0.1 mg/dL (0.0-0.2); BILIRUBIN,TOTAL 0.3 mg/dL (0.2-1.0)
[2017-07-03 22:40] LABS: ALBUMIN 2.7 g/dL (3.4-5.0); B-TYPE NATRIURETIC PEPTIDE 310 PG/ML (0-125); TOTAL PROTEIN, SERUM 6.5 g/dL (6.4-8.2); TROPONIN I < 0.017 ng/mL (0.00-0.056)
[2017-07-03 22:47] LABS: ASPARTATE AMINOTRANSFERASE 36 U/L (15-37)
[2017-07-04] MEDS ORDERED: methylPREDNISolone SOD SUCC 125 MG/2ML VIAL IV ONE
[2017-07-04] MEDS ORDERED: IV NS 0.9% 1,000 ML BAG IV ONE
[2017-07-04] MEDS ORDERED: methylPREDNISolone SOD SUCC 125 MG/2ML VIAL ONE (00:11)
[2017-07-04] MEDS ORDERED: ALBUTEROL FS 2.5 MG/0.5 ML VIAL.NEB NEB ONE (00:30)
[2017-07-04] MEDS ORDERED: IPRATROPIUM NEB FS 0.5 MG/2.5 ML AMPUL.NEB NEB ONE (00:30)
--- NOTE | 2017-07-04 00:43 | NUR ---
CALLED NURSE FOR MED SURG BED
[2017-07-04 00:52] VITALS: BP 120/70
--- NOTE | 2017-07-04 00:58 | NUR ---
312-1 [facility]
[2017-07-04] MEDS ORDERED: ALBUTEROL FS 2.5 MG/0.5 ML VIAL.NEB ONE (01:04)
[2017-07-04] MEDS ORDERED: IPRATROPIUM NEB FS 0.5 MG/2.5 ML AMPUL.NEB ONE (01:04)
--- NOTE | 2017-07-04 01:17 | NUR ---
ONGOING BREATHING TREATMENT.
--- NOTE | 2017-07-04 03:20 | NUR ---
IV removed. Catheter intact and site benign. Pressure and 4x4 applied to site. No bleeding noted. Patient does not wish to proceed with medical care recommended by Dr. Doe. Patient given information related to possible complications, up to and including , which could occur as a result of leaving the hospital at this time. Patient verbalizes understanding of risks involved due to leaving against medical advice. Patient has signed AMA form. Pt is ambulatory with steady gait, accompanied by sister. vss. nad noted. no further complaints.
== END 2017-07-04 03:29 | disposition left against medical advice (07) ==
LOC: ER 21:17 → MED 07-04 01:34 → UNDOADMIN 07-04 01:34
DX: R06.02 Shortness of breath (principal); F17.200 Nicotine dependence, unspecified, uncomplicated; I12.0 Hypertensive chronic kidney disease with stage 5 chronic kidney disease or end stage renal disease; E10.22 Type 1 diabetes mellitus with diabetic chronic kidney disease; N18.6 End stage renal disease; Z79.4 Long term (current) use of insulin; Z79.82 Long term (current) use of aspirin; Z98.890 Other specified postprocedural states; Z86.718 Personal history of other venous thrombosis and embolism
CPT/HCPCS: 36415; 71045-TC; 80048-TC; 80076-TC; 83880; 84484-TC; 85025-TC; 85378-TC; 85730-TC; A4606; J2930; J7030; Z7610

== ENCOUNTER 2018-06-24 19:21 | Inpatient (IN) | payer MEDICAID, OTHER ==
[2018-06-24] VITALS (9 sets, daily range): BP systolic 153–194; BP diastolic 35–108
[~2018-06-24] VITALS: Ht 172.7 cm; Wt 88.0 kg
[~2018-06-24 19:21] MED LIST changes: -AMLO5TAB7 PO; +AMLO5TAB9 PO; -LOSA100T15 PO; +LOSA100T31 PO; -LOSA50TA21 PO; +LOSA50TA39 PO
--- NOTE | 2018-06-24 19:38 | NUR ---
BIBRA39. C/O "COPD, SAT 80-85%RA. SOB. FROM HOME" +SOB -N/V -DIZZY. PT APPEARS TO BE IN DISTRESS. RT PLACED ON BI-PAP. SKIN WARM, DIAPHORETIC, INTACT. HAS DIFFICULT GETTING OUT SENTENCES. SEEN BY DR LOPEZ. AWAITING FURTHER ORDERS AND WILL CONT TO MONITOR. PT MADE COMFORTABLE.
[2018-06-24 19:49] LABS: BASOPHILS # (AUTO) 0.1 /CMM (0.0-0.2); EOSINOPHILS % (AUTO) 8.7 % (0.0-6.0); HEMATOCRIT 41 % (39-51); HEMOGLOBIN 13.2 g/dL (13.5-17.5); LYMPHOCYTES # (AUTO) 3.3 /CMM (0.8-4.8); LYMPHOCYTES % (AUTO) 23.1 % (20.0-44.0); MEAN CORPUSCULAR HGB CONC 32 g/dl (31.0-36.0); MEAN CORPUSCULAR VOLUME 88 fL (80-96); MONOCYTES # (AUTO) 0.5 /CMM (0.1-1.30); MONOCYTES % (AUTO) 3.3 % (2.0-12.0); NEUTROPHILS % (AUTO) 63.9 % (43.0-81.0); PLATELET COUNT (AUTO) 374 /CMM (150-450); RED BLOOD CELL COUNT(AUTO) 4.63 MIL/uL (4.5-6.0); WHITE BLOOD COUNT (AUTO) 14.1 K/uL (4.3-11.0)
[2018-06-24 20:18] LABS: ALBUMIN 3.1 g/dL (3.4-5.0); BILIRUBIN,DIRECT 0.1 mg/dL (0.0-0.2); BILIRUBIN,TOTAL 0.3 mg/dL (0.2-1.0); CALCIUM, SERUM 8.8 mg/dL (8.5-10.1); TOTAL PROTEIN, SERUM 7.7 g/dL (6.4-8.2)
[2018-06-24] MEDS ORDERED: CEFTRIAXONE 1GM BAG (ER ONLY) 50 ML IV ONE ×2 (20:22→20:30)
[2018-06-24] MEDS ORDERED: MORPHINE SULFATE INJ 2 MG/ML DISP.SYRIN IV PRN (20:30)
[2018-06-24] MEDS ORDERED: AZITHROMYCIN 500 MG in IV D5W 250 ML IV ONE (20:30)
[2018-06-24] MEDS ORDERED: Z GUARD REMEDY 2 OZ OINT TP PRN (20:30)
[2018-06-24] MEDS ORDERED: MAG HYDROX/AL HYDROX/SIMETH 30 ML UDC PO PRN (20:30)
[2018-06-24] MEDS ORDERED: MAGNESIUM HYDROXIDE 30 ML UDC PO PRN (20:30)
[2018-06-24] MEDS ORDERED: ZOLPIDEM TARTRATE 5 MG TABLET PO PRN (20:30)
[2018-06-24] MEDS ORDERED: FLUTICASONE PROPIONATE 16 GM BOTTLE NS PRN (20:30)
[2018-06-24] MEDS ORDERED: ACETAMINOPHEN 325 MG TABLET PO PRN (20:30)
[2018-06-24] MEDS ORDERED: HYDROCODONE/APAP 5/325MG 1 EACH TABLET PO PRN (20:30)
[2018-06-24 20:36] LABS: ABG BASE EXCESS -4.2 mmol/L; ABG OXYGEN SATURATION 96.8 % (92.0-98.5); ABG PCO2 41.5 mmHg (35.0-45.0); ABG PH 7.332 (7.350-7.450); ABG PO2 104.4 mmHg (75.0-100.0); AaDO2 277.8 mmHg; COHb 3.1 % (0.5-1.5); MetHb 0.6 % (0.0-1.5); O2Hb 93.2 % (94.0-97.0); SITE, ABG Right Brachial
[2018-06-24] MEDS ORDERED: ALBUTEROL FS 2.5 MG/3 ML VIAL.NEB ONE (20:43)
--- NOTE | 2018-06-24 20:43 | NUR ---
PER DAUGHTER, PT IS NON-COMPLIANT WITH DIALYSIS AND OXYGEN AT HOME. AWARE.
[2018-06-24 20:48] LABS: CREATININE 10.6 mg/dL (0.6-1.3)
[2018-06-24] MEDS ORDERED: INSULIN REGULAR, HUMAN 100 UNIT/ML 3 ML VIAL SQ SCH (21:00)
[2018-06-24] MEDS ORDERED: hydrALAZINE HCL IV 20 MG VIAL IV PRN (21:00)
[2018-06-24] MEDS ORDERED: CALCIUM CHLORIDE 1,000 MG/10 ML DISP.SYRIN IV ONE (21:00)
[2018-06-24] MEDS ORDERED: SODIUM BICARBONATE SYR 50 MEQ/50 ML DISP.SYRIN IV ONE (21:00)
[2018-06-24] MEDS ORDERED: ALBUTEROL FS 2.5 MG/3 ML VIAL.NEB NEB ONE ×2 (21:00)
--- NOTE | 2018-06-24 21:05 | NUR ---
REPORT GIVEN TO JOANNA SHETTY FOR ICU 252. IV ABX INFUSING TO FLOOR
--- NOTE | 2018-06-24 21:40 | NUR ---
[facility]
[2018-06-24] MEDS ORDERED: SODIUM BICARBONATE SYR 50 MEQ/50 ML DISP.SYRIN ONE (21:46)
[2018-06-24] MEDS ORDERED: CALCIUM CHLORIDE 1,000 MG/10 ML DISP.SYRIN ONE (21:46)
[2018-06-24] MEDS: ONDANSETRON HCL/PF 4 MG/2 ML VIAL IVP PRN (21:58)
--- NOTE | 2018-06-24 22:00 | NUR ---
PAYMENT POSTER RCD PT FROM ER W/DX RESP FAIL; PT IS ALERT AND ANXIOUS. ELEVATED BP. DECLINING BIPAP HE WAS NAUSEOUS IN THE ER. SISTER ADILENE STATES SHE WILL BRING POA PAPERWORK.
[2018-06-24] MEDS ORDERED: INSULIN REGULAR, HUMAN 100 UNIT/ML 3 ML VIAL ONE (22:08)
--- NOTE | 2018-06-24 22:21 | NUR ---
RECEIVED PT FROM ER ON BIPAP ON NOTED SETTINGS. TOLERATING SETTINGS. WILL CONTINUE TO MONITOR. Addendum: 06/24/18 at 2223 by ARIC FERGUSON RT Amended: Links added.
--- NOTE | 2018-06-24 22:30 | NUR ---
ENROLLMENT MANAGEMENT VICE PRESIDENT PT NOTED IN RESP DIST WITH LOW O2; PT EXTREMELY AGITATED AGREED TO BE PLACED ON BIPAP. CONTINUE TO MONITOR.
[2018-06-24] MEDS: AZITHROMYCIN 250 MG TABLET PO SCH (23:16)
[2018-06-24] MEDS: ALBUTEROL FS 2.5 MG/3 ML VIAL.NEB NEB SCH (23:23)
[2018-06-24] MEDS: IPRATROPIUM NEB FS 0.5 MG/2.5 ML AMPUL.NEB NEB SCH (23:23)
[2018-06-24] MEDS: ropiniROLE 0.5 MG TABLET PO SCH ×2 (23:30→23:49)
[2018-06-25] VITALS (35 sets, daily range): BP systolic 127–171; BP diastolic 71–109
[2018-06-25] MEDS ORDERED: SODIUM POLYSTYRENE SULFONATE 15 G/60 ML BOTTLE PO ONE
[2018-06-25] MEDS ORDERED: DEXTROSE 50%-WATER 50 ML DISP.SYRIN IV PRN
[2018-06-25] MEDS ORDERED: SODIUM POLYSTYRENE SULFONATE 15 G/60 ML BOTTLE RC ONE (00:30)
--- NOTE | 2018-06-25 00:30 | NUR ---
ARMY RANGER PT NOT AWAKE ENOUGH TO TAKE REQUIP; WILL ONLY HOLD STRAW IN MOUTH AND NOT DRINK. MEDICATION ADM UNDONE AND WASTED MEDICATION.
[2018-06-25] MEDS ORDERED: SODIUM POLYSTYRENE SULFONATE 15 G/60 ML BOTTLE ONE (00:48)
[2018-06-25] MEDS: BLOOD SUGAR DIAGNOSTIC 1 EACH STRIP IN SCH ×6 (01:14→21:09)
[2018-06-25] MEDS: INSULIN REGULAR, HUMAN 100 UNIT/ML 3 ML VIAL SQ PRN ×2 (01:19→17:22)
[2018-06-25] MEDS: ALBUTEROL FS 2.5 MG/3 ML VIAL.NEB NEB SCH ×6 (03:08→23:49)
[2018-06-25] MEDS: IPRATROPIUM NEB FS 0.5 MG/2.5 ML AMPUL.NEB NEB SCH ×6 (03:08→23:49)
[2018-06-25 06:37] LABS: BASOPHILS # (AUTO) 0.1 /CMM (0.0-0.2); BASOPHILS % (AUTO) 0.9 % (0.0-2.0); EOSINOPHILS % (AUTO) 0.1 % (0.0-6.0); HEMATOCRIT 39 % (39-51); HEMOGLOBIN 12.9 g/dL (13.5-17.5); LYMPHOCYTES # (AUTO) 1.2 /CMM (0.8-4.8); LYMPHOCYTES % (AUTO) 11.8 % (20.0-44.0); MEAN CORPUSCULAR HGB CONC 33 g/dl (31.0-36.0); MEAN CORPUSCULAR VOLUME 86 fL (80-96); MONOCYTES # (AUTO) 0.4 /CMM (0.1-1.30); NEUTROPHILS # (AUTO) 8.5 /CMM (1.8-8.9); NEUTROPHILS % (AUTO) 83.2 % (43.0-81.0); PLATELET COUNT (AUTO) 290 /CMM (150-450); RED BLOOD CELL COUNT(AUTO) 4.49 MIL/uL (4.5-6.0); WHITE BLOOD COUNT (AUTO) 10.2 K/uL (4.3-11.0)
[2018-06-25 06:38] LABS: CALCIUM, SERUM 9.3 mg/dL (8.5-10.1); MAGNESIUM 2.7 mg/dL (1.8-2.4); PHOSPHORUS 6.1 mg/dL (2.5-4.9)
[2018-06-25 06:42] LABS: CREATININE 11.4 mg/dL (0.6-1.3); POTASSIUM 8.4 mmol/L (3.5-5.1)
[2018-06-25] MEDS ORDERED: SODIUM POLYSTYRENE SULFONATE 15 G/60 ML BOTTLE PO STA (06:48)
--- NOTE | 2018-06-25 07:10 | NUR ---
CLEANER WALL OPENING NOTE RECEIVED REPORT FROM PM NURSE.PATIENT ON BED.ON BIPAP.ABLE TO OPEN EYES WHILE CALLING NAME.VITAL SIGNS STABLE.NO SOB NO DISTRESS NOTED AT THIS TIME.IV ON R HAND.INTACT NAD PATENT.AV SHUNT ON L ARM POSITIVE BRUIT AND THRILL.BED IS LOCKED AND IN LOW POSITION .CALL LIGHT IN REACH.SRX3.BED ALARM ON .WILL CONTINUE TO MONITOR.
--- NOTE | 2018-06-25 07:30 | NUR ---
CLINICAL NURSING ASSISTANT NOTE BIPAP REMOVED.PATIENT PLACED ON NASAL CANULA 4L.IN STABLE CONDITION.NO SOB NO DISTRESS NOTED.PATIENT AXOX3.WILL CONTINUE TO MONITOR.
[2018-06-25] MEDS: CITRIC ACID/SODIUM CITRATE (BICITRA)15 ML UDC PO SCH ×3 (08:25→16:22)
[2018-06-25] MEDS: ropiniROLE 0.5 MG TABLET PO SCH ×2 (08:25→16:22)
[2018-06-25] MEDS: ATORVASTATIN 10 MG TABLET PO SCH (08:25)
[2018-06-25] MEDS: GABAPENTIN 300 MG CAPSULE PO SCH (08:25)
[2018-06-25] MEDS: FUROSEMIDE 40 MG TABLET PO SCH (08:25)
[2018-06-25] MEDS: ASPIRIN EC 81 MG TABLET.DR PO SCH (08:25)
[2018-06-25] MEDS: LORATADINE 10 MG TABLET PO SCH (08:25)
[2018-06-25] MEDS: CARVEDILOL 6.25 MG TABLET PO SCH ×2 (08:26→16:23)
[2018-06-25] MEDS: AMLODIPINE BESYLATE 5 MG TABLET PO SCH (08:26)
[2018-06-25] MEDS ORDERED: ALBUTEROL FS 2.5 MG/0.5 ML VIAL.NEB NEB PRN (09:00)
[2018-06-25] MEDS ORDERED: IPRATROPIUM NEB FS 0.5 MG/2.5 ML AMPUL.NEB NEB PRN (09:00)
--- NOTE | 2018-06-25 09:00 | NUR ---
LOWERATOR OPERATOR NOTE SEEN BY ,UPDATED ABOUT PATIENT CONDITION WITH LABS.WILL BE HAVING DIALYSIS TODAY.GOT NEW ORDER FOR BREATHING TREATMENT.SEEN BY .CONTINUE TO MONITOR.FAMILY AT BEDSIDE.
--- NOTE | 2018-06-25 11:48 | NUR ---
ORAL SURGERY TECHNICIAN NOTE COPY OF POWER OF DECAL MAKER FILED I HE CHART.SISTER ADILENE AT BEDSIDE.UPDATED ABOUT PATIENT CONDITION.ANSWERED ALL QUESTIONS.WILL CONTINUE TO MONITOR.
--- NOTE | 2018-06-25 15:35 | NUR ---
ARTISTS' BOOKING REPRESENTATIVE NOTE REPORT GIVEN TO JOAO MARSHALL FOR [place].PATIENT IN STABLE CONDITION.AOX3.NO SOB NO DISTRESS NOTED.
--- NOTE | 2018-06-25 15:40 | NUR ---
ICU/RN-RECEIVED PT. FROM JOANNA MARIE, PT. IS AWAKE ,ALERT, EXPRESSIVE OF NEEDS, BREATHING COMES EASY W/ O2 SUPPORT OF 4L/NC, SATS.98%, AFEBRILE. DENIES PAIN OR SOB AT THIS TIME, SISTER , AT THE BEDSIDE VISITING PT.
[2018-06-25] MEDS: LACTOBACILLUS RHAMNOSUS GG 1 EACH CAP.SPRINK PO SCH (16:22)
[2018-06-25] MEDS: LOSARTAN POTASSIUM 50 MG TABLET PO SCH (17:07)
--- NOTE | 2018-06-25 17:17 | NUR ---
Spoke with sister Sharon who is the [facility] [phone]. Patient lives with his younger sister Yisel on the second floor apartment in [place]. Prior to admission, he was ambulatory with a walker and requires assistance with adl's. Family already applied IHSS and pending approval. Patient received dialysis every MWF 8:30AM at [facility] [phone]. HD transportation set up thru [facility]. Patient pcp is Dr. Varma at [facility]. Current dc plan is to return home, family will provide ride. Addendum: 06/25/18 at 1717 by KRISTEN GRIFFIN RN Amended: Links added.
--- NOTE | 2018-06-25 18:00 | NUR ---
ICU/RN- PT. CALM, DENIES PAIN, HAD TOTAL OF 5 LOOSE BROWN STOOLS POST KAYEXALATE THIS MORNING. PT. KEPT CLEAN AND WARM. WILL CONTINUE TO MONITOR PER PROTOCOL.
--- NOTE | 2018-06-25 20:00 | NUR ---
Received patient A/O X 3.Respiration even and unlabored.With O2 2L NC SPO2 98%.Tele shows SR. Denies pain or any discomfort.Saline lock to right hand intact and patent.Left arm AV SHUNT positive bruit and thrill.Patient able to turn in bed independently.Care explained and verbalized understanding. Call light within easy reach.Sisters at bedside updated of patient status.
[2018-06-25] MEDS ORDERED: IV NS 0.9% 250 ML IV ONE (20:30)
[2018-06-25] MEDS: CEFTRIAXONE 1 G in IV D5W 50 ML IV SCH (21:00)
[2018-06-25] MEDS: AZITHROMYCIN 250 MG TABLET PO SCH (21:01)
--- NOTE | 2018-06-25 22:25 | NUR ---
margarita rn notes received pts and report with piero agricultural inspector , pts is alert x4 able to make needs known , pts is ambulatory able to make needs known , pts on monitor sr on the monitor , no sob no distress noted v/s stable afebrile all needs attended too call light within reach kept pts clean dry and comfortable .pts on 2liters via nc sating 97%pts is ambulatory with assist , will continue to monitor pts.
--- NOTE | 2018-06-25 22:30 | NUR ---
Patient transferred to [facility] RM 111 Bed 1 via bed in stable condition.Report given to JOANNA Lake for continuity of care.
[2018-06-26] VITALS: BP 160/85
[2018-06-26] MEDS: BLOOD SUGAR DIAGNOSTIC 1 EACH STRIP IN SCH ×6 (01:29→20:30)
[2018-06-26] MEDS: INSULIN REGULAR, HUMAN 100 UNIT/ML 3 ML VIAL SQ PRN ×3 (01:30→20:34)
[2018-06-26] MEDS: IPRATROPIUM NEB FS 0.5 MG/2.5 ML AMPUL.NEB NEB SCH ×6 (03:30→23:09)
[2018-06-26] MEDS: ALBUTEROL FS 2.5 MG/3 ML VIAL.NEB NEB SCH ×6 (03:30→23:08)
[2018-06-26 04:00] VITALS: BP 158/94
[2018-06-26 05:45] LABS: BASOPHILS # (AUTO) 0.1 /CMM (0.0-0.2); BASOPHILS % (AUTO) 1.2 % (0.0-2.0); EOSINOPHILS % (AUTO) 4.5 % (0.0-6.0); HEMATOCRIT 34 % (39-51); HEMOGLOBIN 11.4 g/dL (13.5-17.5); LYMPHOCYTES # (AUTO) 1.9 /CMM (0.8-4.8); LYMPHOCYTES % (AUTO) 19.5 % (20.0-44.0); MEAN CORPUSCULAR HGB CONC 33 g/dl (31.0-36.0); MEAN CORPUSCULAR VOLUME 86 fL (80-96); MONOCYTES # (AUTO) 0.5 /CMM (0.1-1.30); MONOCYTES % (AUTO) 5.2 % (2.0-12.0); NEUTROPHILS # (AUTO) 6.7 /CMM (1.8-8.9); NEUTROPHILS % (AUTO) 69.6 % (43.0-81.0); PLATELET COUNT (AUTO) 256 /CMM (150-450); RED BLOOD CELL COUNT(AUTO) 3.99 MIL/uL (4.5-6.0); WHITE BLOOD COUNT (AUTO) 9.7 K/uL (4.3-11.0)
[2018-06-26 05:54] LABS: CALCIUM, SERUM 8.8 mg/dL (8.5-10.1); POTASSIUM 5.1 mmol/L (3.5-5.1)
[2018-06-26 05:59] LABS: CREATININE 9.7 mg/dL (0.6-1.3)
--- NOTE | 2018-06-26 07:27 | NUR ---
RN [facility] OPENING NOTES RECEIVED BEDSIDE REPORT PATIENT AWAKE AND ALERT NO SIGNS OR SYMPTOMS OF RESPIRATORY DISTRESS ON 2 LTRS NASAL CANNULA OR ACUTE PAIN NOTED. AMBULATORY IN ROOM WITH WALKER. SINUS RHYTHM ON MONITOR SAFETY PRECAUTIONS IN PLACE BED IN LOW POSITION CALL LIGHT WITHIN REACH WILL CONT TO MONITOR
[2018-06-26 08:00] VITALS: BP 164/74
[2018-06-26] MEDS: ATORVASTATIN 10 MG TABLET PO SCH (08:10)
[2018-06-26] MEDS: FUROSEMIDE 40 MG TABLET PO SCH (08:11)
[2018-06-26] MEDS: LORATADINE 10 MG TABLET PO SCH (08:11)
[2018-06-26] MEDS: GABAPENTIN 300 MG CAPSULE PO SCH (08:11)
[2018-06-26] MEDS: CARVEDILOL 6.25 MG TABLET PO SCH ×2 (08:12→18:36)
[2018-06-26] MEDS: AMLODIPINE BESYLATE 5 MG TABLET PO SCH (08:12)
[2018-06-26] MEDS: CITRIC ACID/SODIUM CITRATE (BICITRA)15 ML UDC PO SCH ×3 (08:12→17:40)
[2018-06-26] MEDS: ASPIRIN EC 81 MG TABLET.DR PO SCH (08:13)
[2018-06-26] MEDS: LACTOBACILLUS RHAMNOSUS GG 1 EACH CAP.SPRINK PO SCH ×2 (08:13→17:40)
[2018-06-26] MEDS: ropiniROLE 0.5 MG TABLET PO SCH ×2 (08:19→17:40)
[2018-06-26] MEDS: ONDANSETRON HCL/PF 4 MG/2 ML VIAL IVP PRN (11:41)
[2018-06-26 12:00] VITALS: BP 151/77
[2018-06-26 16:00] VITALS: BP 166/85
[2018-06-26] MEDS: LOSARTAN POTASSIUM 50 MG TABLET PO SCH (18:35)
--- NOTE | 2018-06-26 18:52 | NUR ---
RN CLOSING TELE NOTES REPORT ENDORSED TO NOC. PATIENT RECEIVED DIALYSIS WITH 2000 OUT. TOLERATED WELL. NO SIGNIFICANT CHANGES THROUGHOUT SHIFT. SAFETY PRECAUTIONS IN PLACE BED IN LOW POSITION CALL LIGHT WITHIN REACH
[2018-06-26 20:00] VITALS: BP 123/75
--- NOTE | 2018-06-26 20:00 | NUR ---
margarita rn notes received pts in bed a/ox4 ambulatory with fww, able to make needs known , pts had hd today with 2liters output , on monitor sr -91 pts on 2 liters of o2 via nc . no sob no distress noted all due meds given as ordered , left av fistula on left hand with present of bruit and thrill .with right iv hl intact and patent, all needs attended too kept pts clean dry and comfortable v/s stable afebrile.pts on renal diet.
[2018-06-26] MEDS: AZITHROMYCIN 250 MG TABLET PO SCH (20:24)
[2018-06-26] MEDS: CEFTRIAXONE 1 G in IV D5W 50 ML IV SCH (20:24)
--- NOTE | 2018-06-26 21:00 | NUR ---
telephone directory deliverer notes .blood sugar at 9pm is 154 mg/di 2 units of regular insulin given per sliding scale, pts on po diet . iv antibiotic given to pts as ordered.
[2018-06-27] VITALS: BP 139/68
--- NOTE | 2018-06-27 01:00 | NUR ---
margarita rn notes blood sugar for 0100 am is 111 no coverage given per sliding scale.will check bs again at 5am.
[2018-06-27] MEDS: BLOOD SUGAR DIAGNOSTIC 1 EACH STRIP IN SCH ×5 (01:01→17:48)
[2018-06-27] MEDS: INSULIN REGULAR, HUMAN 100 UNIT/ML 3 ML VIAL SQ PRN ×3 (01:01→12:24)
[2018-06-27] MEDS: ALBUTEROL FS 2.5 MG/3 ML VIAL.NEB NEB SCH ×5 (03:06→19:30)
[2018-06-27] MEDS: IPRATROPIUM NEB FS 0.5 MG/2.5 ML AMPUL.NEB NEB SCH ×5 (03:06→19:30)
[2018-06-27 04:00] VITALS: BP 140/59
--- NOTE | 2018-06-27 04:41 | NUR ---
margarita rn notes blood sugar for 5am is 109mg/dl, no coverage given per sliding scale
--- NOTE | 2018-06-27 07:27 | NUR ---
RN BOONE OPENING NOTES RECEIVED BEDSIDE REPORT PATIENT AWAKE AND ALERT X3 NO SIGNS OR SYMPTOMS OF RESPIRATORY DISTRESS ON 2 LTRS NASAL CANNULA OR ACUTE PAIN NOTED AMBULATORY IN ROOM WITH WALKER. SINUS RHYTHM ON MONITOR SAFETY PRECAUTIONS IN PLACE BED IN LOW POSITION CALL LIGHT WITHIN REACH WILL CONT TO MONITOR
[2018-06-27 07:57] LABS: BASOPHILS # (AUTO) 0.1 /CMM (0.0-0.2); BASOPHILS % (AUTO) 0.8 % (0.0-2.0); HEMATOCRIT 32 % (39-51); HEMOGLOBIN 10.7 g/dL (13.5-17.5); LYMPHOCYTES # (AUTO) 1.6 /CMM (0.8-4.8); LYMPHOCYTES % (AUTO) 19.2 % (20.0-44.0); MEAN CORPUSCULAR HGB CONC 33 g/dl (31.0-36.0); MEAN CORPUSCULAR VOLUME 87 fL (80-96); MONOCYTES # (AUTO) 0.6 /CMM (0.1-1.30); MONOCYTES % (AUTO) 7.6 % (2.0-12.0); NEUTROPHILS # (AUTO) 5.6 /CMM (1.8-8.9); NEUTROPHILS % (AUTO) 67.4 % (43.0-81.0); PLATELET COUNT (AUTO) 184 /CMM (150-450); RED BLOOD CELL COUNT(AUTO) 3.73 MIL/uL (4.5-6.0); WHITE BLOOD COUNT (AUTO) 8.3 K/uL (4.3-11.0)
[2018-06-27 08:00] VITALS: BP 164/91
[2018-06-27 08:00] LABS: ALBUMIN 2.5 g/dL (3.4-5.0); BILIRUBIN,TOTAL 0.4 mg/dL (0.2-1.0); CALCIUM, SERUM 8.7 mg/dL (8.5-10.1); MAGNESIUM 2.1 mg/dL (1.8-2.4); TOTAL PROTEIN, SERUM 6.1 g/dL (6.4-8.2)
[2018-06-27 08:02] LABS: CREATININE 8.8 mg/dL (0.6-1.3)
[2018-06-27] MEDS: ASPIRIN EC 81 MG TABLET.DR PO SCH (08:45)
[2018-06-27] MEDS: CARVEDILOL 6.25 MG TABLET PO SCH ×2 (08:45→17:00)
[2018-06-27] MEDS: LORATADINE 10 MG TABLET PO SCH (08:45)
[2018-06-27] MEDS: ropiniROLE 0.5 MG TABLET PO SCH ×2 (08:45→17:00)
[2018-06-27] MEDS: GABAPENTIN 300 MG CAPSULE PO SCH (08:45)
[2018-06-27] MEDS: LACTOBACILLUS RHAMNOSUS GG 1 EACH CAP.SPRINK PO SCH ×2 (08:45→17:00)
[2018-06-27] MEDS: AMLODIPINE BESYLATE 5 MG TABLET PO SCH (08:45)
[2018-06-27] MEDS: CITRIC ACID/SODIUM CITRATE (BICITRA)15 ML UDC PO SCH ×3 (08:46→17:50)
[2018-06-27] MEDS: ATORVASTATIN 10 MG TABLET PO SCH (08:46)
[2018-06-27] MEDS: FUROSEMIDE 40 MG TABLET PO SCH (08:46)
[2018-06-27 12:00] VITALS: BP 169/86
--- NOTE | 2018-06-27 12:57 | NUR ---
RN BOONE NOTES ORDERS FOR PT TO BE DISCHARGED TODAY. AWAITING FOR HD PRIOR TO TO GOING HOME.
[2018-06-27 16:00] VITALS: BP 164/84
[2018-06-27] MEDS: LOSARTAN POTASSIUM 50 MG TABLET PO SCH (18:00)
--- NOTE | 2018-06-27 18:19 | NUR ---
RN BOONE NOTES HELD 1700 MEDS D/T PT RECEIVING DIALYSIS. WILL ENDORSE TO NOC PATIENT IS BEING DISCHARGED AFTER HD
--- NOTE | 2018-06-27 19:08 | NUR ---
RN [facility] CLOSING NOTES REPORT GIVEN TO NOC. ALL EXIT CARE DONE PATIENT TO BE DISCHARGED AFTER HD. NO SIGNIFICANT CHANGES THROUGH OUT SHIFT. ALL NEEDS MET
[2018-06-27 20:00] VITALS: BP 159/85
--- NOTE | 2018-06-27 20:30 | NUR ---
DISCHARGE NOTES D/C PT TO HOME ACCOMPANIED BY SISTER,WILLIS. A/OX4. NO C/O PAIN. S/P HD, TOLERATED WELL. VS WNL. INSTRUCTED WITH D/C ORDER, PT VERBALIZED UNDERSTANDING. RHAND G20 HEPLOCK D/ED, IV CANNULA INTACT. PRESSURES DRESSING APPLIED. NO SIGNS OF BLEEDING/INFECTION NOTED. SAFETY MEASURES OBSERVED AT ALL TIMES. D/C
== END 2018-06-27 21:27 | disposition home or self-care (01) | DRG 194 ==
LOC: ER 19:26 → ICU 21:15 → TELE-TD 06-25 22:25 → TELE1 06-26 16:02 → TELE-TD 06-26 19:45
PROVIDERS: ADMIT Internal Medicine; ATTEND Family Medicine
PROC: 5A09357 Assistance with Respiratory Ventilation, Less than 24 Consecutive Hours, Continuous Positive Airway Pressure (ICD-10-PCS; principal; 2018-06-24)
PROC: 5A1D70Z Performance of Urinary Filtration, Intermittent, Less than 6 Hours Per Day (ICD-10-PCS; 2018-06-25)
PROC: 5A1D70Z Performance of Urinary Filtration, Intermittent, Less than 6 Hours Per Day (ICD-10-PCS; 2018-06-26)
PROC: 5A1D70Z Performance of Urinary Filtration, Intermittent, Less than 6 Hours Per Day (ICD-10-PCS; 2018-06-27)
DX: I13.2 Hypertensive heart and chronic kidney disease with heart failure and with stage 5 chronic kidney disease, or end stage renal disease (principal); J96.21 Acute and chronic respiratory failure with hypoxia; I21.A1 Myocardial infarction type 2; N18.6 End stage renal disease; I50.33 Acute on chronic diastolic (congestive) heart failure; Z99.2 Dependence on renal dialysis; E44.1 Mild protein-calorie malnutrition; E87.5 Hyperkalemia; E78.5 Hyperlipidemia, unspecified; E10.22 Type 1 diabetes mellitus with diabetic chronic kidney disease; E10.42 Type 1 diabetes mellitus with diabetic polyneuropathy; J44.9 Chronic obstructive pulmonary disease, unspecified; F17.210 Nicotine dependence, cigarettes, uncomplicated; K21.9 Gastro-esophageal reflux disease without esophagitis; Z79.4 Long term (current) use of insulin; Z79.51 Long term (current) use of inhaled steroids; Z79.82 Long term (current) use of aspirin; Z82.49 Family history of ischemic heart disease and other diseases of the circulatory system; Z91.15 Patient's noncompliance with renal dialysis; Z99.81 Dependence on supplemental oxygen
CPT/HCPCS: 36415; 36600; 71045-TC; 80048-TC; 80053-TC; 80076-TC; 82803-TC; 82962-TC; 83605-TC; 83735-TC; 83880; 84100-TC; 84132-TC; 84484-TC; 85025-TC; 87040-TC; 87081-TC; 90935-TC; 93307-TC; 94799-TC; 99082-TC; A6402; G0378; J0360; J0456; J0696; J1815; J2405; J3490; J7050; J7060

== ENCOUNTER 2019-10-08 02:45 | Inpatient (IN) | payer MEDICAID ==
[~2019-10-08] VITALS: Ht 167.6 cm; Wt 87.5 kg
[2019-10-08] VITALS (31 sets, daily range): BP systolic 93–163; BP diastolic 42–91
[2019-10-08] MEDS ORDERED: methylPREDNISolone SOD SUCC 125 MG/2ML VIAL ONE (02:50)
--- NOTE | 2019-10-08 02:51 | NUR ---
PATIENT CAME TO ER BED 8 BIB RA C/O SHORTNESS OF BREATH. PER RA REPORT, PATIENT WAS SITTING ON HIS PORCH AT HOME AND SMOKING WHEN HE WAS FEELING SHORT OF BREATH. PATIENT HAS HISTORY OF COPD. PATIENT HAD DIALYSIS YESTERDAY. AAOX4. BREATHING WITH ACCESORY MUSCLES. CONNECTED TO DRAGGER. Addendum: 10/08/19 at 0439 by KELLY PATIENT HAS A LEFT ARM FISTULA.
--- NOTE | 2019-10-08 02:56 | NUR ---
RT NOTE LATE ENTRY: Pt rec'd on Cpap mask at 15LPM. Pt showed signs of tachypnea, tachycardia, SOB, and diaphoresis. B/s are crackles bilaterally. Pt placed on Bipap per md orders on settings as charted. Abg to be taken after being placed on Bipap. Alarms are set and audible. Ambu bag bedside. Bipap plugged into red outlet. Will continue to monitor closely. Addendum: 10/08/19 at 0343 by KRYSTINA GALLAGHER RT Amended: Links added.
--- NOTE | 2019-10-08 02:56 | NUR ---
TECHNICAL HEALTHCARE CONSULTANT AT BEDSIDE FOR LABS
--- NOTE | 2019-10-08 02:56 | NUR ---
RT AT BEDSIDE FOR BIPAP
[2019-10-08] MEDS ORDERED: methylPREDNISolone SOD SUCC 125 MG/2ML VIAL IV ONE (03:00)
--- NOTE | 2019-10-08 03:00 | NUR ---
IPAP 25 / EPAP 10, 100% FIO2, RESPIRATORY RATE 18 BIPAP SETTINGS
[2019-10-08 03:09] LABS: BASOPHILS # (AUTO) 0.3 /CMM (0.0-0.2); BASOPHILS % (AUTO) 1.8 % (0.0-2.0); EOSINOPHILS % (AUTO) 5.7 % (0.0-6.0); HEMATOCRIT 43 % (39-51); LYMPHOCYTES # (AUTO) 4.5 /CMM (0.8-4.8); LYMPHOCYTES % (AUTO) 25.3 % (20.0-44.0); MEAN CORPUSCULAR HGB CONC 31 g/dl (31.0-36.0); MEAN CORPUSCULAR VOLUME 95 fL (80-96); MONOCYTES # (AUTO) 1.1 /CMM (0.1-1.30); MONOCYTES % (AUTO) 6.2 % (2.0-12.0); NEUTROPHILS # (AUTO) 10.7 /CMM (1.8-8.9); PLATELET COUNT (AUTO) 336 /CMM (150-450); RED BLOOD CELL COUNT(AUTO) 4.49 MIL/uL (4.5-6.0); WHITE BLOOD COUNT (AUTO) 17.6 K/uL (4.3-11.0)
[2019-10-08 03:18] LABS: ABG BASE EXCESS -4.1 mmol/L; ABG PCO2 52.6 mmHg (35.0-45.0); ABG PH 7.265 (7.350-7.450); ABG PO2 73.3 mmHg (75.0-100.0); AaDO2 587.1 mmHg; MetHb 0.3 % (0.0-1.5); SITE, ABG Right Radial; VENT MODE, BG Bipap 25/10 RR18 100%
[2019-10-08 03:30] LABS: ALBUMIN 3.9 g/dL (3.4-5.0); BILIRUBIN,DIRECT 0.2 mg/dL (0.0-0.2); BILIRUBIN,TOTAL 0.5 mg/dL (0.2-1.0); CALCIUM, SERUM 9.5 mg/dL (8.5-10.1); POTASSIUM 4.4 mmol/L (3.5-5.1); TOTAL PROTEIN, SERUM 8.6 g/dL (6.4-8.2)
[2019-10-08 03:31] LABS: CREATININE 7.6 mg/dL (0.6-1.3)
--- NOTE | 2019-10-08 04:09 | NUR ---
COVID SWAB COLLECTED AND SENT TO LAB.
--- NOTE | 2019-10-08 04:15 | NUR ---
DR. DOSS SPEAKING WITH DR. ALLEN
[2019-10-08] MEDS ORDERED: AZITHROMYCIN 500 MG in IV D5W 250 ML IV ONE (05:30)
[2019-10-08] MEDS ORDERED: ACETAMINOPHEN 650 MG/SUPP.RECT RC PRN (05:30)
[2019-10-08] MEDS ORDERED: ACETAMINOPHEN 325 MG TABLET PO PRN (05:30)
--- NOTE | 2019-10-08 06:24 | NUR ---
DR. ALLEN AT BEDSIDE FOR EXAMINATION AND EVALUATION.
[2019-10-08 06:26] LABS: ABG BASE EXCESS 1.1 mmol/L; ABG OXYGEN SATURATION 99.5 % (92.0-98.5); ABG PCO2 45.8 mmHg (35.0-45.0); ABG PH 7.382 (7.350-7.450); AaDO2 210.3 mmHg; COHb 1.6 % (0.5-1.5); MetHb 0.3 % (0.0-1.5); O2Hb 97.6 % (94.0-97.0); SITE, ABG Right Radial; VENT MODE, BG Bipap 25/10 RR18 80%
--- NOTE | 2019-10-08 06:30 | NUR ---
PATIENT'S FIO2 IS BROUGHT DOWN TO 50%.
--- NOTE | 2019-10-08 06:47 | NUR ---
BED ASSIGNMENT 260
--- NOTE | 2019-10-08 07:28 | NUR ---
ENDORSEMENT RECEIVED FROM RUTH MARSHALL FOR [place]
--- NOTE | 2019-10-08 07:36 | NUR ---
REPORT GIVEN TO KISHA MARSHALL OF ICU
[2019-10-08] MEDS ORDERED: SEVE800T28 PO (07:58)
[2019-10-08] MEDS ORDERED: FOLI0.8T23 PO (07:58)
[2019-10-08] MEDS ORDERED: ESCI10TA PO (07:58)
[2019-10-08] MEDS ORDERED: CALC667C6 PO (07:58)
[2019-10-08] MEDS ORDERED: ROPI0.5T4 PO (07:58)
[2019-10-08] MEDS ORDERED: BECL10.62 IH (07:58)
[2019-10-08] MEDS ORDERED: HYDR-500 PO (07:58)
[2019-10-08] MEDS ORDERED: MIRT15TA7 PO (07:58)
[2019-10-08] MEDS ORDERED: NIFE-34 PO (07:58)
[2019-10-08] MEDS ORDERED: PANT40TA4 PO (07:58)
[2019-10-08] MEDS ORDERED: MECL-182 PO (07:58)
[2019-10-08] MEDS ORDERED: IPRA4AER INH (07:58)
--- NOTE | 2019-10-08 08:00 | NUR ---
RN NOTES RECEIVED PT ON BED, A/Ox3-4, ON BIPAP, TOLERATING SETTING WELL, O2 SAT 100%, PT HAS SOB ON EXERTION, ON TELE SR HR IN 60'S, PT HAS LEFT UPPER ARM AVG FOR HD, POSITIVE THRILL AND BRUIT, R WIRST IV SITE G 18 AND R AC IV SITE G 20 CLEAN, DRY AND INTACT, SR UP x3, CALL LIGHT WITHIN EASY REACH, BED LOCKED AND IN LOWEST POSITION, CONTINUE TO MONITOR
[2019-10-08] MEDS: methylPREDNISolone SOD SUCC 40 MG/ML VIAL IV SCH ×4 (08:20→23:02)
[2019-10-08] MEDS ORDERED: VANCOMYCIN 1 GM in IV D5W 250 ML IV ONE (08:30)
[2019-10-08] MEDS ORDERED: ENOXAPARIN SODIUM 30 MG/0.3 ML DISP.SYRIN SQ SCH (09:00)
[2019-10-08] MEDS ORDERED: FEE PK DOSING 1 MIN EA MC ONE (11:35)
--- NOTE | 2019-10-08 11:36 | NUR ---
PT AWAKE AND ALERT ABLE TO FALLOW COMMANDS PLACED OFF BIPAP ONTO 3LPM N/C TOLERATING WELL ZERO DISTRESS NOTED.
[2019-10-08] MEDS ORDERED: HEPARIN SODIUM, PORCINE 5000 UNITS/1 ML VIAL IV ONE (12:00)
--- NOTE | 2019-10-08 12:00 | NUR ---
RN NOTE PT ON 2L O2 N/C, O2 SAT WNL, NO DISTRESS NOTED, CONTINUE TO MONDOR.
[2019-10-08] MEDS: HEPARIN INFUSION/D5W 500 ML IV PRN (12:42)
--- NOTE | 2019-10-08 15:00 | NUR ---
RN NOTE PT C/O BEING [facility], DR BORA AGUILAR, ORDER RECEIVING TO PLACE PT ON RENAL CARDIAC DIET .
[2019-10-08 16:00] LABS: ABG BASE EXCESS -3.8 mmol/L; ABG PH 7.364 (7.350-7.450); ABG PO2 89.2 mmHg (75.0-100.0); AaDO2 80.1 mmHg; COHb 0.6 % (0.5-1.5); MetHb 0.1 % (0.0-1.5); O2Hb 95.3 % (94.0-97.0); SITE, ABG Right Radial
--- NOTE | 2019-10-08 17:00 | NUR ---
RN NOTES PT RECEIVING HD AT THIS TIME TOLERATING WELL, CONTINUE TO MONITOR .
--- NOTE | 2019-10-08 18:52 | NUR ---
RN NOTES HD DONE ,PT TOLERATED WELL, VSS STABLE , PT ON 2L O2 N/C, O2 SAT 91-92%, HEPARIN GTT AT 1200 U/HR RUNNING , ON TELE SR , PT UP TO BATHROOM , BMx1, SR UP x3, CALL LIGHT WITHIN EASY REACH, BED LOCKED AND IN LOWEST POSITION, WILL ENDORSE TO FISH TENDER NURSE FOR CONTINUITY OF CARE .
[2019-10-09] VITALS (25 sets, daily range): BP systolic 124–162; BP diastolic 55–94
[2019-10-09 04:24] LABS: BASOPHILS % (AUTO) 0.1 % (0.0-2.0); HEMATOCRIT 33 % (39-51); HEMOGLOBIN 10.4 g/dL (13.5-17.5); LYMPHOCYTES # (AUTO) 0.5 /CMM (0.8-4.8); LYMPHOCYTES % (AUTO) 4.4 % (20.0-44.0); MEAN CORPUSCULAR HGB CONC 32 g/dl (31.0-36.0); MEAN CORPUSCULAR VOLUME 93 fL (80-96); MONOCYTES # (AUTO) 0.2 /CMM (0.1-1.30); MONOCYTES % (AUTO) 1.6 % (2.0-12.0); NEUTROPHILS # (AUTO) 11.6 /CMM (1.8-8.9); NEUTROPHILS % (AUTO) 93.9 % (43.0-81.0); PLATELET COUNT (AUTO) 209 /CMM (150-450); WHITE BLOOD COUNT (AUTO) 12.4 K/uL (4.3-11.0)
[2019-10-09 05:02] LABS: ALBUMIN 3.3 g/dL (3.4-5.0); BILIRUBIN,TOTAL 0.5 mg/dL (0.2-1.0); CALCIUM, SERUM 8.6 mg/dL (8.5-10.1); CREATININE 7.4 mg/dL (0.6-1.3); MAGNESIUM 2.3 mg/dL (1.8-2.4); PHOSPHORUS 6.9 mg/dL (2.5-4.9); POTASSIUM 4.8 mmol/L (3.5-5.1); TOTAL PROTEIN, SERUM 7.3 g/dL (6.4-8.2)
[2019-10-09] MEDS: methylPREDNISolone SOD SUCC 40 MG/ML VIAL IV SCH ×3 (05:21→18:00)
[2019-10-09] MEDS ORDERED: MORPHINE SULFATE INJ 2 MG/ML DISP.SYRIN IV PRN (05:30)
--- NOTE | 2019-10-09 06:10 | NUR ---
MANAGER TRADING: CALLED AND NOTIFIED DORITA CALLES FOR TROPONIN REDRAW RESULT=[phone] FROM 11.095. STILL ON HEPARIN DRIP NOW ON 1400U/HR FROM 1200U/HR AND PTT NEXT DRAW AT 1200 PER PROTOCOL. NO SIGNIFICANT [place] THROUGHOUT SHIFT. REMAINED A/O X 4. CONTINUE ON 2L 02 VIA NC WT NO ACUTE DISTRESS AND NO C/O PAIN OR EVIDENCE OF DISCOMFORT. AERONAUTICAL PROJECT ENGINEER WT ORDER FOR STAT EKG. NOTED AND CARRIED OUT. RT CALLED AND MADE AWARE. SAFETY PRECAUTION NOTED AT ALL TIMES. WILL CONTINUE TO MONITOR
--- NOTE | 2019-10-09 06:38 | NUR ---
CHARTER AND TOUR BUS DRIVER: RELAYED EKG RESULT TO DORITA CALLES WT ORDER FOR STAT ASA 325MG X1. PT REMAINED ASYMPTOMATIC AT THIS TIME.
[2019-10-09] MEDS ORDERED: ASPIRIN 325 MG TABLET PO ONE (07:00)
--- NOTE | 2019-10-09 07:10 | NUR ---
BLANKING MACHINE OPERATOR: PAGED DR. DIALLO. AWAITING CALL BACK. ENDORSED TO JOANNA BENNETT FOR CONTINUITY OF CARE WT EMPHASIS TO INFORM CARDIO MD RE TROPONIN AND EKG RESULTS.
--- NOTE | 2019-10-09 08:02 | NUR ---
RN OPENING NOTES RECEIVED PATIENT RESTING IN BED COMFORTABLY. PT IS AOX4, VERBAL, AND AMBULATORY WITH ASSIST. HE IS ON 2L OF OXYGEN VIA NC, TOLERATING WELL, NO SOB. TELE MONITOR IS SHOWING SR. IV SITE ON RAC 20 G AND R WRIST 18 G IS PATENT AND INTACT, INFUSING HEPARIN DRIP AT 1400 UNITS PER HOUR. NO ACTIVE BLEEDING, TITRATE PER PROTOCOL. SAFETY MEASURES HAVE BEEN IMPLEMENTED, CALL LIGHT IS WITHIN REACH, BED IS IN LOWEST AND LOCKED POSITION, SIDE RIALS UP X2, WILL CONTINUE TO MONITOR FOR ANY CHANGES.
--- NOTE | 2019-10-09 08:05 | NUR ---
RN NOTES ENDORSED AM TROPONIN LEVEL OF 11.878 TO MD DIALLO
[2019-10-09 08:56] LABS: IRON, SERUM 59 ug/dl (50-175); TOTAL IRON BINDING CAPACITY 202 ug/dl (250-450)
[2019-10-09] MEDS: ASPIRIN 325 MG TABLET PO SCH (09:00)
--- NOTE | 2019-10-09 09:01 | NUR ---
RN NOTES PT RECEIVED DOSE OF 325 MG ASA THIS AM AT 0700. PT IS ON HEPARIN DRIP @1400 UNITS/HR AND HAS ORDER FOR 75 MG PLAVIX AND ANOTHER 325 MG ASPIRIN AT 0700. SPOKE WITH MD DIALLO; CONTINUE HEPARIN DRIP, OK TO ADMIN 75 MG PLAVIX, HOLD 0900 DOSE OF ASA, WILL CONTINUE TO MONITOR
[2019-10-09 09:06] LABS: C-REACTIVE PROTEIN 3.6 mg/dL (0.0-0.9)
[2019-10-09] MEDS: CLOPIDOGREL BISULFATE 75 MG TABLET PO SCH (09:11)
[2019-10-09] MEDS: ATORVASTATIN 10 MG TABLET PO SCH (09:12)
[2019-10-09] MEDS: HEPARIN INFUSION/D5W 500 ML IV PRN (09:15)
--- NOTE | 2019-10-09 10:00 | NUR ---
SPOKE TO DR. DIALLO-PATIENT OKAY FOR ICU OVERFLOW STATUS.
[2019-10-09 10:10] LABS: CHOLESTEROL 113 mg/dL (<200); FERRITIN 411 ng/mL (8-388); HDL CHOLESTEROL 66 mg/dL (40-60); LDL 41 mg/dL (0-99); TRIGLYCERIDES 25 mg/dL (30-150)
[2019-10-09] MEDS: METOPROLOL TARTRATE 50 MG TABLET PO SCH ×2 (11:40→18:00)
--- NOTE | 2019-10-09 12:19 | NUR ---
RN NOTES MESSAGED DR. SAHNI REGARDING INCOMPLETE MED RECON, WILL CONTINUE TO MONITOR
--- NOTE | 2019-10-09 12:25 | NUR ---
RN NOTES PER LAB, NO REPEAT PTT IS ORDERED. PLACED A NEW ORDER FOR STAT PTT FOR HEPARIN DRIP RATE REEVALUATION
--- NOTE | 2019-10-09 14:10 | NUR ---
JOANNA NOTES PT PTT IS 46.2 AT 1230, NO CHANGES TO HEPARIN DRIP PER PROTOCOL. ORDERED REPEAT PTT IN 12 HOURS. WILL MONITOR FOR ANY S/SX OF BLEEDING Addendum: 10/09/19 at 1923 by NELIA HERRING RN REPEAT PTT HAS BEEN RESCHEDULED TO 10/10/2019 AT 0600. PER HEPARIN PROTOCOL, IF NOT CHANGE IN RATE PTT IS CHECKED DAILY. ENDORSED TO NIGHT JOANNA
--- NOTE | 2019-10-09 16:50 | NUR ---
RN NOTES PT HD SESSION HAS BEEN POSTPONED UNTIL TOMORROW. SPOKE WITH JAY JAY RX, 500 MG VANCO TO BE GIVEN NOW INSTEAD OF 1G VANCO FOLLOWING HD, WILL CONTINUE TO MONITOR
[2019-10-09] MEDS ORDERED: VANCOMYCIN 1 GM in IV D5W 250 ML IV ONE (18:00)
--- NOTE | 2019-10-09 19:19 | NUR ---
RN NOTES PATIENT IS RESTING IN BED COMFORTABLY AT THIS TIME, NO S/SX OF DISTRESS. HEPARIN DRIP RUNNING AT 1400 UNITS, REPEAT PTT SCHEDULED. SAFETY MEASURES HAVE BEEN IMPLEMENTED, CALL LIGHT IS WITHIN REACH, BED IS IN LOWEST AND LOCKED POSITION, SIDE RAILS UP X2, PT HAS BEEN ENDORSED TO NIGHTSHIFT RN FOR [place].
--- NOTE | 2019-10-09 20:00 | NUR ---
RN OPENING NOTES RECEIVED PATIENT RESTING IN BED . PT IS AOX4, VERBAL, AND AMBULATORY WITH ASSIST.ON MONITOR SR ON THE MONITOR . ON 2L OF OXYGEN VIA NC, TOLERATING WELL SATING 98%, NO SOB. IV SITE ON RAC 20 G AND R WRIST 24 G IS PATENT AND INTACT, AV SHUNT ON LFA NOTED WITH THRILL AND BRUIT WIT NO BLEEDING NOTED. INFUSING HEPARIN DRIP AT 1400 UNITS PER HOUR. NO ACTIVE BLEEDING, TITRATE PER PROTOCOL. V/S STABLE AFEBRILE SAFETY MEASURES HAVE BEEN IMPLEMENTED, CALL LIGHT IS WITHIN REACH, BED IS IN LOWEST AND LOCKED POSITION, SIDE RIALS UP X2, WILL CONTINUE TO MONITOR FOR ANY CHANGES.
[2019-10-09] MEDS: VANCOMYCIN 500 MG in IV D5W 100 ML IV PRN (20:30)
--- NOTE | 2019-10-09 20:30 | NUR ---
DRY DRUG WORKER NOTES LAST PTT 46.2 NO CHANGES PER ENDORSEMENT WILL CHECK PTT AT 6AM ON 10/10/19, WILL CONTINUE TO MONITOR.DUE MEDS GIVEN ORDERED, PER ENDORSEMENT FROM DAY SHIFT RN SABRINA TO GIVE VANCOMYCIN 500MG IVPB EVEN THOUGH PTS DID NOT HAVE DIALYSIS TODAY. FAMILY CALLED SISTER LYN UPDATED WITH PTS CONDITION.
--- NOTE | 2019-10-09 23:15 | NUR ---
agriculture inspector notes spoke to Software Quality Test Engineer Attila relayed mrsa nares positive with order bactroban ointment 2% 1 application to both nostril q12hrs ,order noted and carried out , precautionary measures observed at all times.
[2019-10-10] VITALS (18 sets, daily range): BP systolic 118–159; BP diastolic 52–85
[2019-10-10] MEDS: methylPREDNISolone SOD SUCC 40 MG/ML VIAL IV SCH ×2 (00:15→05:09)
[2019-10-10] MEDS: METOPROLOL TARTRATE 50 MG TABLET PO SCH ×5 (00:17→23:30)
[2019-10-10] MEDS: HEPARIN INFUSION/D5W 500 ML IV PRN (04:14)
--- NOTE | 2019-10-10 05:48 | NUR ---
agricultural lender notes Pts continue on heparin ggt at 1400 units/28cc/hr as ordered . no ase noted no bleeding noted , for ptt at 6am , pts morning care rendered , kept pts warm and comfortable , pts on contact and droplet isolation due to r/o covid and mrsa nares . precautionary measures observe at all times ,v/s stable afebrile ,will endorse to rn day shift to follow to md the home medication .will endorse to rn day shift for continuity of care.
[2019-10-10 07:21] LABS: BASOPHILS % (AUTO) 0.1 % (0.0-2.0); HEMATOCRIT 30 % (39-51); HEMOGLOBIN 9.6 g/dL (13.5-17.5); LYMPHOCYTES # (AUTO) 0.5 /CMM (0.8-4.8); LYMPHOCYTES % (AUTO) 3.7 % (20.0-44.0); MEAN CORPUSCULAR HGB CONC 32 g/dl (31.0-36.0); MEAN CORPUSCULAR VOLUME 92 fL (80-96); MONOCYTES # (AUTO) 0.2 /CMM (0.1-1.30); MONOCYTES % (AUTO) 1.7 % (2.0-12.0); NEUTROPHILS # (AUTO) 11.7 /CMM (1.8-8.9); NEUTROPHILS % (AUTO) 94.5 % (43.0-81.0); PLATELET COUNT (AUTO) 175 /CMM (150-450); RED BLOOD CELL COUNT(AUTO) 3.31 MIL/uL (4.5-6.0); WHITE BLOOD COUNT (AUTO) 12.3 K/uL (4.3-11.0)
--- NOTE | 2019-10-10 07:23 | NUR ---
RN OPENING NOTES RECEIVED PATIENT SLEEPING IN BED COMFORTABLY, NO S.SX OF DISTRESS. PT IS AOX4, VERBAL, AND AMBULATORY. HE IS ON 2L OF OXYGEN VIA NC, TOLERATING WELL. TELE MONITOR SHOWING NSR. SKIN IS INTACT, SCARS ARE PRESENT. IV SITE ON R WRSIT 24 G AND RAC 20 G, AND LFA AV SHUNT ARE PATENT AND INTACT. PT RECEIVING HEPARIN DRIP AT 1,400 UNITS PER HOUR, NO S.SX OF BLEEDING. SAFETY MEASURES HAVE BEEN IMPLEMENTED, CALL LIGHT IS WITHIN REACH, BED IS IN LOWEST AND LOCKED POSITION, SIDE RAILS UP X2, WILL CONTINUE TO MONITOR FOR ANY CHANGES.
[2019-10-10 07:43] LABS: ALBUMIN 3.1 g/dL (3.4-5.0); BILIRUBIN,TOTAL 0.4 mg/dL (0.2-1.0); CALCIUM, SERUM 7.8 mg/dL (8.5-10.1); MAGNESIUM 2.4 mg/dL (1.8-2.4); POTASSIUM 5.2 mmol/L (3.5-5.1); TOTAL PROTEIN, SERUM 6.6 g/dL (6.4-8.2)
--- NOTE | 2019-10-10 07:44 | NUR ---
RN NOTES DAILY PTT IS 46.6, NO CHANGES IN RATE NECESSARY FOR HEPARIN DRIP PER PROTOCOL, WILL CONTINUE TO MONITOR FOR ANY CHANGES AND/OR S/SX OF BLEEDING. REPEAT PTT HAS BEEN ORDERED FOR TOMORROW AM
[2019-10-10 07:54] LABS: CREATININE 9.3 mg/dL (0.6-1.3); PHOSPHORUS 8.9 mg/dL (2.5-4.9)
[2019-10-10] MEDS: ATORVASTATIN 10 MG TABLET PO SCH (08:23)
[2019-10-10] MEDS: ASPIRIN 325 MG TABLET PO SCH (08:23)
[2019-10-10] MEDS: CLOPIDOGREL BISULFATE 75 MG TABLET PO SCH (08:23)
[2019-10-10] MEDS: MUPIROCIN OINT 2% 22 GM TUBE SCH ×2 (08:24→20:51)
--- NOTE | 2019-10-10 08:33 | NUR ---
RN NOTES TROPONIN LEVEL IS TRENDING DOWN THIS AM, 6.802. MD DIALLO MADE AWARE, NO NEW ORDERS AT THIS TIME PT IS ON HEPARIN DRIP. WILL CONTINUE TO MONITOR FOR ANY CHANGES.
--- NOTE | 2019-10-10 08:58 | NUR ---
RN NOTES MESSAGE SENT TO DR SAHNI (HOSPITALIST) FOR HOME MED RECON COMPLETION
[2019-10-10 09:56] LABS: THYROID STIMULATING HORMONE 0.233 uIU/mL (0.358-3.74)
--- NOTE | 2019-10-10 10:01 | NUR ---
RN NOTES HEPARIN DRIP HAS BEEN DC'D, NO S.SX OF BLEEDING AT THIS TIME, WILL CONTINUE TO MONITOR FOR ANY CHANGES.
--- NOTE | 2019-10-10 11:35 | NUR ---
RN NOTES 1200 DOSE OF METOPROLOL HAS BEEN HELD, PT IS SCHEDULED FOR HEMODIALYSIS TODAY, WILL CONTINUE TO MONITOR
[2019-10-10] MEDS: SEVELAMER CARBONATE 0.8 GM POWD.PACK GT SCH ×2 (12:17→17:04)
--- NOTE | 2019-10-10 15:40 | NUR ---
VEHICLE OPERATOR TECHNICIAN NOTES RECEIVED PT IN BED, ASLEEP, EASILY AROUSED, A/O X4. TOLERATING RA, WITH NO ACUTE RESPIRATORY DISTRESS NOTED. ON TELEMONITORING WITH SB 54. PT DENIES ANY PAIN OR DISCOMFORT AT THIS TIME. ON GOING DIALYSIS, HD ACCESS AT LFA AV SHUNT. PIV TO RIGHT WRIST G24, FLUSHED WITH NS, INTACT AND OPERATIONAL. PT KEPT COMFORTABLE. PT'S BED IN LOWEST, LOCKED POSITION WITH SRX3. CALL LIGHT KEPT WITHIN REACH. WILL CONTINUE PLAN OF CARE.
--- NOTE | 2019-10-10 15:40 | NUR ---
RN NOTES HANDOFF REPORT GIVEN TO RAMON MARSHALL FOR [place]
[2019-10-10] MEDS: VANCOMYCIN 500 MG in IV D5W 100 ML IV PRN (16:41)
--- NOTE | 2019-10-10 18:42 | NUR ---
PIN CHASER NOTES RECEIVED PT IN BED, AWAKE, A/O X4. PT TOLERATING RA, WITH NO ACUTE RESPIRATORY DISTRESS NOTED. ON TELEMONITORING WITH SB 72. PT DENIES ANY PAIN OR DISCOMFORT AT THIS TIME. HAD DIALYSIS, HD ACCESS AT [facility] AV SHUNT, OUTPUT OF 3L. PIV TO RIGHT WRIST G24, FLUSHED WITH NS, INTACT AND OPERATIONAL. PT KEPT COMFORTABLE. ALL NEEDS AND CARE ATTENDED. PT'S BED IN LOWEST, LOCKED POSITION WITH SRX3. CALL LIGHT KEPT WITHIN REACH. WILL ENDORSE TO INCOMING NIGHT NURSE FOR [place].
--- NOTE | 2019-10-10 19:33 | NUR ---
RN OPENING NOTES Received pt resting in bed, A/O X 4. VS WNL. client is on external telemonitor, SR HR 70. The client a R wrist 24 G. The client An AV shunt on the LFA. Client had HD 10/10/19, 3L extracted. Skin is intact. Medication reconciliation order has placed to Hospitalist, will continue to monitor medication updates. The client has no distress at this time, 100% sat at RA. Will continue to monitor. All safety mechanism in place at this time. Bed locked in the lowest position, call light within reach. Will
[2019-10-10] MEDS: HEPARIN SODIUM, PORCINE 5000 UNITS/1 ML VIAL SQ SCH (20:55)
[2019-10-11] VITALS: BP 140/81
[2019-10-11 04:00] VITALS: BP 140/81
[2019-10-11] MEDS: METOPROLOL TARTRATE 50 MG TABLET PO SCH ×2 (05:27→12:10)
--- NOTE | 2019-10-11 06:25 | NUR ---
RN CLOSING NOTES pt resting in bed, A/O X 4. VS WNL. client is on external telemonitor, SR HR 70. The client a R wrist 24 G. The client An AV shunt on the LFA. Skin is intact, only scars are noted. The client has no distress at this time, 100% sat at RA.There has been no change of condition during the shift. All safety mechanism in place at this time. Bed locked in the lowest position, call light within reach. Will endorse the incoming nurse.
[2019-10-11 06:35] LABS: BASOPHILS % (AUTO) 0.1 % (0.0-2.0); EOSINOPHILS % (AUTO) 0.1 % (0.0-6.0); HEMATOCRIT 31 % (39-51); HEMOGLOBIN 9.9 g/dL (13.5-17.5); MEAN CORPUSCULAR HGB CONC 32 g/dl (31.0-36.0); MEAN CORPUSCULAR VOLUME 90 fL (80-96); MONOCYTES # (AUTO) 0.6 /CMM (0.1-1.30); MONOCYTES % (AUTO) 5.2 % (2.0-12.0); NEUTROPHILS # (AUTO) 10.7 /CMM (1.8-8.9); NEUTROPHILS % (AUTO) 86.6 % (43.0-81.0); PLATELET COUNT (AUTO) 189 /CMM (150-450); RED BLOOD CELL COUNT(AUTO) 3.37 MIL/uL (4.5-6.0); WHITE BLOOD COUNT (AUTO) 12.3 K/uL (4.3-11.0)
[2019-10-11 06:45] LABS: CALCIUM, SERUM 8.3 mg/dL (8.5-10.1); MAGNESIUM 2.4 mg/dL (1.8-2.4); PHOSPHORUS 6.8 mg/dL (2.5-4.9); POTASSIUM 4.6 mmol/L (3.5-5.1)
--- NOTE | 2019-10-11 07:30 | NUR ---
Rn opening notes Received patient resting at bed, A/O x 4,[place]er speaking on Room Air, tolerating well, no s/sx of distress, ambulatory, skin is intact, IV line on R Wrist G46 noted, intact and running TKO NS @3 cc/hr, AV shunt on L hand noted, no s/sx of bleeding or infection noted. Safety measures implemented, call light within reach, bed in lowest position, will cont to monitor Addendum: 10/11/19 at 1351 by Debra Musa RN Rn opening notes Received patient resting at bed, A/O x 4,[place] speaking on Room Air, tolerating well, no s/sx of distress,Patient is on tele-monitor, normal sinus rhythm 80s ; ambulatory, skin is intact, IV line on R Wrist G46 noted, intact and running TKO NS @3 cc/hr, AV shunt on L hand noted, no s/sx of bleeding or infection noted. Safety measures implemented, call light within reach, bed in lowest position, will cont to monitor
[2019-10-11] MEDS: SEVELAMER CARBONATE 0.8 GM POWD.PACK GT SCH ×2 (07:37→12:11)
[2019-10-11 08:00] VITALS: BP 135/72
[2019-10-11] MEDS: MUPIROCIN OINT 2% 22 GM TUBE SCH (08:43)
[2019-10-11] MEDS: ASPIRIN 325 MG TABLET PO SCH (08:45)
[2019-10-11] MEDS: CLOPIDOGREL BISULFATE 75 MG TABLET PO SCH (08:45)
[2019-10-11] MEDS: ATORVASTATIN 10 MG TABLET PO SCH (08:45)
[2019-10-11] MEDS: HEPARIN SODIUM, PORCINE 5000 UNITS/1 ML VIAL SQ SCH (08:52)
[2019-10-11] MEDS ORDERED: methylPREDNISolone SOD SUCC 40 MG/ML VIAL IV SCH (09:00)
--- NOTE | 2019-10-11 10:00 | NUR ---
Patient went to shower , his IV pulled off, will inset new line
--- NOTE | 2019-10-11 10:30 | NUR ---
Patient complained of ear discomfort and partial loosing of hearing of right ear, MD notified
--- NOTE | 2019-10-11 11:25 | NUR ---
Pt complained of sever anxiety attack, NOTIFIED
[2019-10-11 12:00] VITALS: BP 155/72
--- NOTE | 2019-10-11 12:02 | NUR ---
Md ordered Ativan 1 mg q8prn, IV Addendum: 10/11/19 at 1858 by Debra Musa RN at 1202, medicated with ativan 1mg wasted with Kolby Amador rn pharmacy was notified
[2019-10-11] MEDS ORDERED: LORAZEPAM INJ 2 MG/ML VIAL IV PRN (12:30)
--- NOTE | 2019-10-11 13:28 | NUR ---
Patient saying he wants to leave and have second opinion, notified
--- NOTE | 2019-10-11 13:29 | NUR ---
Pt's sister Sherly called and informed that patient might be depressed because of family anniversary since his mother
[2019-10-11] MEDS ORDERED: ESCITALOPRAM OXALATE (10 MG) 10 MG TABLET PO SCH (14:00)
[2019-10-11] MEDS ORDERED: MECLIZINE HCL 12.5 MG TABLET PO PRN (14:00)
[2019-10-11] MEDS ORDERED: IPRATROPIUM/ALBUTEROL INHALER IH PRN (14:30)
--- NOTE | 2019-10-11 14:30 | NUR ---
PATIENT WANT TO LEAVE AMA, SPOKE WITH DR SAHNI, DECIDED TO STAY
[2019-10-11 16:00] VITALS: BP 168/81
--- NOTE | 2019-10-11 16:57 | NUR ---
Patient left AMA with sign ed paperwork,all discharge plan implemented,patient called his brother to picked him up, IV line removed, patient signs belongings list, ID band removed, MD notified, Patient refused dialysis
[2019-10-11] MEDS ORDERED: CARVEDILOL 6.25 MG TABLET PO SCH (17:00)
[2019-10-11] MEDS ORDERED: GABAPENTIN 400 MG CAPSULE PO SCH (17:00)
[2019-10-11] MEDS ORDERED: Medication Not On Formulary EA (Beclomethasone Dipropionate (Qvar Redihaler) 2 PUFF) IH SCH (17:00)
[2019-10-11] MEDS ORDERED: LOSARTAN POTASSIUM 50 MG TABLET PO SCH ×2 (18:00)
[2019-10-11] MEDS ORDERED: CALCIUM ACETATE 667 MG TABLET PO SCH (18:00)
[2019-10-11] MEDS ORDERED: SEVELAMER CARBONATE 800 MG TABLET PO SCH (18:00)
[2019-10-11] MEDS ORDERED: ATORVASTATIN 10 MG TABLET PO SCH (18:00)
[2019-10-11] MEDS ORDERED: MIRTAZAPINE 15 MG TABLET PO SCH (22:00)
[2019-10-11] MEDS ORDERED: ropiniROLE 0.5 MG TABLET PO SCH (22:00)
[2019-10-12] MEDS ORDERED: PANTOPRAZOLE 40 MG TABLET.DR PO SCH (07:30)
[2019-10-12] MEDS ORDERED: VIT B CMPLX 3/FA/VIT C/BIOTIN 1 TAB TABLET PO SCH (09:00)
[2019-10-12] MEDS ORDERED: LOSARTAN POTASSIUM 50 MG TABLET PO SCH (09:00)
[2019-10-12] MEDS ORDERED: NIFEdipine XL 60 MG TAB PO SCH (09:00)
[2019-10-12] MEDS ORDERED: hydrOXYzine PAMOATE 25 MG CAPSULE PO SCH (09:00)
== END 2019-10-11 17:00 | disposition left against medical advice (07) | DRG 133 ==
LOC: ER 02:46 → ICU 06:18 → ICUOV 10-09 13:24 → TELE1 10-10 15:34
PROVIDERS: ADMIT Student in an Organized Health Care Education/Training Program; ATTEND Student in an Organized Health Care Education/Training Program
PROC: 5A1D70Z Performance of Urinary Filtration, Intermittent, Less than 6 Hours Per Day (ICD-10-PCS; principal; 2019-10-08)
PROC: 5A09357 Assistance with Respiratory Ventilation, Less than 24 Consecutive Hours, Continuous Positive Airway Pressure (ICD-10-PCS; principal; 2019-10-08)
DX: J96.21 Acute and chronic respiratory failure with hypoxia (principal); I21.A1 Myocardial infarction type 2; G93.40 Encephalopathy, unspecified; I13.2 Hypertensive heart and chronic kidney disease with heart failure and with stage 5 chronic kidney disease, or end stage renal disease; J15.9 Unspecified bacterial pneumonia; J81.1 Chronic pulmonary edema; E10.22 Type 1 diabetes mellitus with diabetic chronic kidney disease; E10.42 Type 1 diabetes mellitus with diabetic polyneuropathy; I48.0 Paroxysmal atrial fibrillation; G25.81 Restless legs syndrome; I50.33 Acute on chronic diastolic (congestive) heart failure; J44.0 Chronic obstructive pulmonary disease with (acute) lower respiratory infection; N18.6 End stage renal disease; E10.51 Type 1 diabetes mellitus with diabetic peripheral angiopathy without gangrene; E66.9 Obesity, unspecified; E78.5 Hyperlipidemia, unspecified; E87.5 Hyperkalemia; F12.90 Cannabis use, unspecified, uncomplicated; I25.10 Atherosclerotic heart disease of native coronary artery without angina pectoris; Z86.718 Personal history of other venous thrombosis and embolism; Z99.2 Dependence on renal dialysis; J44.1 Chronic obstructive pulmonary disease with (acute) exacerbation; D64.9 Anemia, unspecified; Z79.4 Long term (current) use of insulin; Z72.0 Tobacco use; D72.829 Elevated white blood cell count, unspecified; J96.22 Acute and chronic respiratory failure with hypercapnia
CPT/HCPCS: 36415; 36600; 71045-TC; 80048-TC; 80053-TC; 80061-TC; 80076-TC; 80202-TC; 82728-TC; 82803-TC; 83540-TC; 83605-TC; 83615-TC; 83735-TC; 83880; 84100-TC; 84439-TC; 84443-TC; 84484-TC; 85025-TC; 85378-TC; 85610-TC; 85730-TC; 86140-TC; 86706; 87081-TC; 87340; 90935-TC; 94799-TC; G0378; J0456; J1644; J2060; J2920; J2930; J3370; J7050; J7060; U0003-CS

== ENCOUNTER 2020-03-09 10:05 | Inpatient (IN) | payer MEDICAID ==
[~2020-03-09] VITALS: Ht 172.7 cm; Wt 90.7 kg
[~2020-03-09 10:05] MED LIST changes: -ALBU8.5H8 IH; -AMLO5TAB9 PO; -ASPI-1152 PO; +ASPI-1420 PO; +BECL10.62 IH; -BLOO-129 IN; +CALC667C6 PO; -CITR30SO PO; +ESCI10TA PO; +FOLI0.8T23 PO; -FURO80TA3 PO; +HYDR-500 PO; -INSU100V30 SQ; +IPRA4AER INH; -LORA10TA7 PO; +MECL-183 PO; +MIRT15TA7 PO; -MOME13HF IH; +NIFE-34 PO; +PANT40TA49 PO; +ROPI0.5T4 PO; +SEVE800T28 PO
--- NOTE | 2020-03-09 10:05 | NUR ---
PT BIBRA C/O GENERALIZED WEAKNESS, COUGHING OUT BLOOD X 1 MONTH. PT IS AAOX4, NOT IN RESPIRATORY DISTRESS, HOOKED TO LIGHT BULB TESTER, KEPT RESTED AND COMFORTABLE. WILL CONTINUE TO MONITOR.
--- NOTE | 2020-03-09 10:18 | NUR ---
SEEN AND EXAMINED BY .
--- NOTE | 2020-03-09 10:30 | NUR ---
ER PHLEB AT BEDSIDE FOR BLOOD DRAW.
--- NOTE | 2020-03-09 10:38 | NUR ---
RADIOLOGY AT BEDSIDE ERWIN CHEST XRAY.
--- NOTE | 2020-03-09 10:43 | NUR ---
MOVE SHEET SUBMITTED AND CALLED FOR TELE BED.
[2020-03-09 10:55] LABS: BASOPHILS # (AUTO) 0.1 /CMM (0.0-0.2); BASOPHILS % (AUTO) 1.2 % (0.0-2.0); EOSINOPHILS % (AUTO) 5.2 % (0.0-6.0); HEMATOCRIT 22 % (39-51); LYMPHOCYTES % (AUTO) 12.9 % (20.0-44.0); MEAN CORPUSCULAR HGB CONC 31 g/dl (31.0-36.0); MEAN CORPUSCULAR VOLUME 90 fL (80-96); MONOCYTES # (AUTO) 0.4 /CMM (0.1-1.30); MONOCYTES % (AUTO) 5.1 % (2.0-12.0); NEUTROPHILS # (AUTO) 5.9 /CMM (1.8-8.9); NEUTROPHILS % (AUTO) 75.6 % (43.0-81.0); PLATELET COUNT (AUTO) 233 /CMM (150-450); RED BLOOD CELL COUNT(AUTO) 2.46 MIL/uL (4.5-6.0); WHITE BLOOD COUNT (AUTO) 7.8 K/uL (4.3-11.0)
[2020-03-09 11:03] LABS: HEMOGLOBIN 6.8 g/dL (13.5-17.5)
[2020-03-09 11:05] LABS: CALCIUM, SERUM 9.4 mg/dL (8.5-10.1); POTASSIUM 5.7 mmol/L (3.5-5.1)
[2020-03-09 11:16] LABS: ALBUMIN 3.7 g/dL (3.4-5.0); BILIRUBIN,DIRECT 0.2 mg/dL (0.0-0.2); BILIRUBIN,TOTAL 0.5 mg/dL (0.2-1.0); TOTAL PROTEIN, SERUM 7.4 g/dL (6.4-8.2)
[2020-03-09 11:25] LABS: CREATININE 14.1 mg/dL (0.6-1.3)
[2020-03-09] MEDS ORDERED: FUROSEMIDE 40 MG/4 ML VIAL IV ONE (11:30)
[2020-03-09] MEDS ORDERED: FUROSEMIDE 40 MG/4 ML VIAL ONE (11:54)
[2020-03-09] MEDS ORDERED: CLOP75TA15 PO (11:55)
[2020-03-09] MEDS ORDERED: LISI-768 PO (11:55)
[2020-03-09 11:57] LABS: EOSINOPHILS % (MANUAL) 5 % (0-4); LYMPHOCYTES % (MANUAL) 12 % (16-48); MONOCYTES % (MANUAL) 4 % (0-11.0); NEUTROPHILS % (MANUAL) 79 (42-76)
--- NOTE | 2020-03-09 12:08 | NUR ---
MEDICATED PER ERMD ORDER, PT KAROLINA WELL.
[2020-03-09] MEDS ORDERED: INSULIN REGULAR, HUMAN 100 UNIT/ML 10 ML VIAL ONE (13:50)
[2020-03-09] MEDS ORDERED: SODIUM POLYSTYRENE SULFONATE 15 G/60 ML BOTTLE ONE (13:50)
[2020-03-09] MEDS ORDERED: DEXTROSE 50%-WATER 50 ML DISP.SYRIN ONE (13:50)
[2020-03-09] MEDS ORDERED: SOD FERRIC GLUC 125 MG in IV NS 0.9% 100 ML IV SCH (14:00)
[2020-03-09] MEDS ORDERED: INSULIN REGULAR, HUMAN 100 UNIT/ML 10 ML VIAL IV ONE (14:00)
[2020-03-09] MEDS ORDERED: HYDROCODONE/APAP 5/325MG TABLET PO PRN (14:00)
[2020-03-09] MEDS ORDERED: HOME MED MISCELLANEOUS XX SCH ×2 (14:00)
[2020-03-09] MEDS ORDERED: FLUTICASONE PROPIONATE 16 GM BOTTLE NS PRN (14:00)
[2020-03-09] MEDS ORDERED: ACETAMINOPHEN 325 MG TABLET PO PRN (14:00)
[2020-03-09] MEDS ORDERED: MECLIZINE HCL 12.5 MG TABLET PO PRN (14:00)
[2020-03-09] MEDS ORDERED: Z GUARD REMEDY 2 OZ OINT TP PRN (14:00)
[2020-03-09] MEDS ORDERED: DEXTROSE 50%-WATER 50 ML DISP.SYRIN IV ONE ×2 (14:00)
[2020-03-09] MEDS ORDERED: DEXTROSE 50%-WATER 50 ML DISP.SYRIN IV PRN (14:00)
[2020-03-09] MEDS ORDERED: MAG HYDROX/AL HYDROX/SIMETH 30 ML UDC PO PRN (14:00)
[2020-03-09] MEDS ORDERED: SODIUM POLYSTYRENE SULFONATE 15 G/60 ML BOTTLE PO ONE (14:00)
[2020-03-09] MEDS ORDERED: MAGNESIUM HYDROXIDE 30 ML UDC PO PRN (14:00)
[2020-03-09] MEDS ORDERED: ONDANSETRON HCL/PF 4 MG/2 ML VIAL IVP PRN (14:00)
--- NOTE | 2020-03-09 14:00 | NUR ---
CALLED LAB TEN MORE MINS FOR COVID RESULTS.
--- NOTE | 2020-03-09 14:20 | NUR ---
CALLED LAB AGAIN... ASKING FOR 15 MORE MINS.
--- NOTE | 2020-03-09 14:50 | NUR ---
REPORT GIVEN TO JOANNA ORDONEZ FOR [place].
[2020-03-09 15:00] VITALS: BP 147/75
[2020-03-09] MEDS ORDERED: ALBUTEROL FS 2.5 MG/0.5 ML VIAL.NEB NEB PRN (15:00)
[2020-03-09] MEDS ORDERED: IPRATROPIUM NEB FS 0.5 MG/2.5 ML AMPUL.NEB NEB PRN (15:00)
--- NOTE | 2020-03-09 15:00 | NUR ---
DEVELOPMENT REPRIPRAP MAN NOTES ADMITTED PT FROM ER WITH DX OF ACUTE ANEMIA WITH BLOOD LOSS,ACUTE HEMOPTYSIS AND ES RENAL DISORDER. PT IS ALERT AND ORIENTED X4.VERBALLY RESPONSIVE. ON TELE WITH HR 65.AMBULATES AD SHAYY WITH STEADY GAIT. SKIN INTACT. WITH LT ARM AV SHUNT INTACT. WITH LT EJ G 2O INTACT. MED RECON DONE AND WAS SEEN BY KATHRINE DISLA. NEPHRO CONSULT WILL BE DR ADI SHINE. PT MISSED HD MON AND SAT. FOR PULMO CONSULT DUE TO HEMOPTYSIS. DR JUÁREZ AWARE. SKIN INTACT. PT'S HGB IS VERY LOW 6.8 AND WILL HAVE BLOOD TRANSFUSION OF 1 UNIT PRBC WITH HEMODIALYSIS. CALLED BRIE,NETWORK INTERN WHO STATED THAT HE WILL DO DIALYSIS ON THE PT AND WILL SEE HIM SOON.ROOM ORIENTATION GIVEN AND USE OF CALL LIGHT.PT HAS K+ 5.7 AND KAYEXALATE 30 GM, 2 AMPS OF D50 IV AND 5 UNITS OF REGULAR INSULIN WAS ADMINISTERED IN E.R.. PT MADE BM 3X IN THE TOILET.CALL LIGHT PLACED WITHIN REACH.
[2020-03-09 16:00] VITALS: BP 147/75
[2020-03-09] MEDS ORDERED: ALPRAZOLAM 0.25 MG TABLET PO ONE (16:00)
[2020-03-09] MEDS ORDERED: hydrOXYzine 10 MG TABLET PO PRN (16:00)
[2020-03-09] MEDS: PANTOPRAZOLE 40 MG TABLET.DR PO SCH (16:55)
[2020-03-09] MEDS: BLOOD SUGAR DIAGNOSTIC 1 EACH STRIP IN SCH ×3 (16:56→23:48)
[2020-03-09] MEDS: SEVELAMER CARBONATE 800 MG TABLET PO SCH (18:12)
[2020-03-09] MEDS: CALCIUM ACETATE 667 MG TABLET PO SCH (18:12)
--- NOTE | 2020-03-09 18:13 | NUR ---
HELD COREG AND VALLECSHAHANA IV, AWAITING FOR CARBON SETTER,BRIE WHO STATED THAT HE WILL COME TO DO DIALYSIS ON THIS PT SOON. PT IS FOR BLOOD TRANSFUSION WITH HEMODIALYSIS WELL WHICH IS ALREADY READY FOR TRANSFUSION.
[2020-03-09 19:00] VITALS: BP 147/75
[2020-03-09] MEDS ORDERED: EPOETIN ALFA (10,000 UNIT) 10,000 UNIT/ML VIAL IV ONE (19:00)
--- NOTE | 2020-03-09 19:00 | NUR ---
HEMODIALYSIS STARTED AND ADMINISTERED PRBC 1 UNIT WITH HEMODIALYSIS.WITH STABLE V/S.WILL MONITOR FOR ANY ADVERSE REACTIONS.
[2020-03-09 19:15] VITALS: BP 137/69
--- NOTE | 2020-03-09 19:15 | NUR ---
PT STILL WITH ONGOING BLOOD TRANSFUSION OF PRBC 1 UNIT WITH HEMODIALYSIS WITH NO ADVERSE REACTION. PT SLEEPING COMFORTABLY BUT AROUSABLE. DENIES ANY DISTRESS. HELD COREG AT THIS TIME DUE TO ONGOING HEMODIALYSIS. ENDORSED TO NIGHT NURSE TO CALL PHARMACY FOR FERRLECIT ONCE HD IS COMPLETED.
[2020-03-09 20:00] VITALS: BP 137/68
--- NOTE | 2020-03-09 20:05 | NUR ---
BAG CUTTER NOTES RECEIVED ON BED,A/O X4,HD TREATMENT IN PROGRESS,HD NURSE AT BEDSIDE.
[2020-03-09 20:30] VITALS: BP 137/68
--- NOTE | 2020-03-09 20:30 | NUR ---
DIPLOMATIC INTERPRETER NOTES SR-80 ON TELE MONITOR.BLOOD TRANSFUSION COMPLETED THIS TIME.GIVEN BY HEMODIALYSIS NURSE.
[2020-03-09] MEDS: SOD FERRIC GLUC 125 MG in IV NS 0.9% 100 ML IV SCH (20:59)
--- NOTE | 2020-03-09 21:00 | NUR ---
PRINTMAKER NOTES ITA JOHNSON,INFUSING VIA IV PUMP ON LEFT EXTRA JUGULAR IV SITE
--- NOTE | 2020-03-09 21:30 | NUR ---
AWNING MAKER AND INSTALLER NOTES PATIENT AMBULATE TO THE RESTROOM WITH STEADY GAIT,PLUG PASTER AT BEDSIDE
[2020-03-09] MEDS: ropiniROLE 0.5 MG TABLET PO SCH (21:46)
[2020-03-09] MEDS: MIRTAZAPINE 15 MG TABLET PO SCH (21:46)
[2020-03-09] MEDS: CARVEDILOL 6.25 MG TABLET PO SCH (21:47)
[2020-03-09] MEDS: FLUTICASONE 110MCG 1 EA INHALER IH SCH (21:49)
[2020-03-09] MEDS: ATORVASTATIN 10 MG TABLET PO SCH (21:50)
--- NOTE | 2020-03-09 21:50 | NUR ---
FITTER TYPE BAR AND SEGMENT NOTES HEMODIALYSIS TREATMENT COMPLETED TOLERATED WELL.TAKEN OUT 2 LITERS.
--- NOTE | 2020-03-09 22:00 | NUR ---
SLAT GRADER NOTES ACCU-CHECK BLOOD SUGAR CHECK 112,NO INSULIN COVERAGE.
[2020-03-09 23:19] LABS: THYROID STIMULATING HORMONE 1.182 uIU/mL (0.358-3.74)
[2020-03-10] VITALS (10 sets, daily range): BP systolic 99–160; BP diastolic 45–82
[2020-03-10] MEDS: BLOOD SUGAR DIAGNOSTIC 1 EACH STRIP IN SCH ×4 (05:31→21:58)
[2020-03-10 06:04] LABS: BASOPHILS # (AUTO) 0.1 /CMM (0.0-0.2); BASOPHILS % (AUTO) 1.2 % (0.0-2.0); EOSINOPHILS % (AUTO) 5.7 % (0.0-6.0); HEMATOCRIT 21 % (39-51); LYMPHOCYTES # (AUTO) 0.8 /CMM (0.8-4.8); LYMPHOCYTES % (AUTO) 12.4 % (20.0-44.0); MEAN CORPUSCULAR HGB CONC 32 g/dl (31.0-36.0); MEAN CORPUSCULAR VOLUME 87 fL (80-96); MONOCYTES # (AUTO) 0.4 /CMM (0.1-1.30); MONOCYTES % (AUTO) 5.6 % (2.0-12.0); NEUTROPHILS # (AUTO) 4.8 /CMM (1.8-8.9); NEUTROPHILS % (AUTO) 75.1 % (43.0-81.0); PLATELET COUNT (AUTO) 202 /CMM (150-450); RED BLOOD CELL COUNT(AUTO) 2.44 MIL/uL (4.5-6.0); WHITE BLOOD COUNT (AUTO) 6.4 K/uL (4.3-11.0)
[2020-03-10 06:09] LABS: HEMOGLOBIN 6.9 g/dL (13.5-17.5)
[2020-03-10 06:24] LABS: ALBUMIN 3.2 g/dL (3.4-5.0); BILIRUBIN,TOTAL 0.6 mg/dL (0.2-1.0); CALCIUM, SERUM 9.1 mg/dL (8.5-10.1); MAGNESIUM 2.5 mg/dL (1.8-2.4); PHOSPHORUS 5.7 mg/dL (2.5-4.9); POTASSIUM 4.1 mmol/L (3.5-5.1); TOTAL PROTEIN, SERUM 6.5 g/dL (6.4-8.2)
--- NOTE | 2020-03-10 06:34 | NUR ---
TRIAGE REGISTER NURSE NOTES ON BED,SLEPT WELL AT NIGHT.NO SOB,MORE ALERT,ABLE TO WALK TO THE RESTROOM WITH STEADY GAIT.ALL DUE MEDS ADMINISTERED.CALL LIGHT IN REACH,NEEDS ATTENDED.WILL ENDORSE TO DAY NURSE FOR [place].
[2020-03-10 06:49] LABS: CREATININE 10.9 mg/dL (0.6-1.3)
--- NOTE | 2020-03-10 07:00 | NUR ---
TIRE TESTER NOTES MORNING H/H TODAY AFTER 1 UNIT OF PRBC GIVEN LAST NIGHT 6.12/27.DR GOLDSTEIN MADE AWARE AND HE SAID MORNING ROUNDERS WILL TAKE CARE OF IT,TRIP MARSHALL MADE AWARE.
--- NOTE | 2020-03-10 08:00 | NUR ---
RN OPENING NOTE Patient is resting in bed, in no acute distress, saturating 98% on 2L NC. Patient denies any pain or discomfort at this time. Per Dr. Longoria, patient needs to be transferred to [facility] status right away and order STAT PCR COVID test. elder counselor aware. Nursing Gardener Florist aware. Awaiting bed from 1st floor. Bed in lowest position, side rails x2 in upright position, call light is within reach, fall safety and aspiration precautions enforced. Will continue with plan of care.
[2020-03-10] MEDS: CARVEDILOL 6.25 MG TABLET PO SCH ×2 (08:07→16:33)
[2020-03-10] MEDS: VIT B CMPLX 3/FA/VIT C/BIOTIN 1 TAB TABLET PO SCH (08:07)
[2020-03-10] MEDS: CALCIUM ACETATE 667 MG TABLET PO SCH ×3 (08:07→17:32)
[2020-03-10] MEDS: PANTOPRAZOLE 40 MG TABLET.DR PO SCH (08:08)
[2020-03-10] MEDS: NIFEdipine XL (30MG) 30 MG TAB PO SCH (08:08)
[2020-03-10] MEDS: ESCITALOPRAM OXALATE (10 MG) 10 MG TABLET PO SCH (08:08)
[2020-03-10] MEDS: SEVELAMER CARBONATE 800 MG TABLET PO SCH ×3 (08:08→17:32)
[2020-03-10] MEDS: FLUTICASONE 110MCG 1 EA INHALER IH SCH ×2 (08:12→21:36)
[2020-03-10] MEDS: methylPREDNISolone SOD SUCC 125 MG/2ML VIAL IV SCH ×3 (08:40→21:35)
[2020-03-10] MEDS ORDERED: hydrOXYzine HCL SYRUP 10 MG/5 ML UDC PO SCH (09:00)
[2020-03-10 09:44] LABS: EOSINOPHILS % (MANUAL) 3 % (0-4); LYMPHOCYTES % (MANUAL) 13 % (16-48); MONOCYTES % (MANUAL) 6 % (0-11.0); NEUTROPHILS % (MANUAL) 78 (42-76)
--- NOTE | 2020-03-10 09:45 | NUR ---
RN NOTE TRANSFERRED TO BOONE Patient transferred to BOONE Room 118. Bedside report given to Santa MARSHALL. All belongings are with the patient, medications brought down with the patient. Patient left by wheelchair on 3L NC. Endorsed for [place].
[2020-03-10] MEDS: LEVOFLOXACIN 750 MG /D5W 150ML 150 ML IV SCH (10:07)
[2020-03-10] MEDS ORDERED: EPOETIN ALFA (10,000 UNIT) 10,000 UNIT/ML VIAL IV ONE (11:00)
--- NOTE | 2020-03-10 11:02 | NUR ---
PATIENT IN BED ALERT ORIENTED, PCR TEST DONE AND SPUTUM FOR CYTOLOGY COLLECTED, ON 3L NC 98% SATURATION SEEN BY DR GALLEGOS WILL DO HD TODAY BLOOD TRANSFUSION WITH HD TODAY
--- NOTE | 2020-03-10 12:36 | NUR ---
RECONCILIATION MANAGER NOTE HD NURSE AT BEDSIDE DOING HD BLOOD TRANSFUSIONS DOING NOW PER ORDER DR SHINE
[2020-03-10] MEDS: INSULIN REGULAR, HUMAN 100 UNIT/ML 3 ML VIAL SQ PRN ×2 (13:44→17:28)
--- NOTE | 2020-03-10 13:47 | NUR ---
telephone assembler note hd completed bp 124/57 blood transfusion completed by hd nurse, no adverse reaction noted
--- NOTE | 2020-03-10 13:53 | NUR ---
rn telemetry note mid line yuli 18 inserted on r upper arm as ordered
--- NOTE | 2020-03-10 14:10 | NUR ---
telecommunicator supervisor note consent fo ct chest and neck sighed by patient
[2020-03-10] MEDS: SOD FERRIC GLUC 125 MG in IV NS 0.9% 100 ML IV SCH (14:30)
--- NOTE | 2020-03-10 15:10 | NUR ---
it telecom technician note per dr smith ok o do hd tomorrow and ct radiologist notified ct chest will be done about 10 am tomorrow hd nurse notified
--- NOTE | 2020-03-10 16:37 | NUR ---
BALANCE WEIGHER NOTE FIBRINOGEN 82 WBC 1.5 PLATELETS 14 BHAVIN MANAGER OF DATA RN HUMAN RESOURCES COMPLIANCE MANAGER NOTIFIED ,NO NEW ORDER GIVEN AT THIS TIME
--- NOTE | 2020-03-10 16:42 | NUR ---
Patient is alert and oriented, lives locally with his sister in the second floor apartment. He is ambulatory and independent with adl's. Patient received dialysis every MWF 8:30AM at [facility] [phone]. HD transportation set up thru [facility]. Patient pcp is Dr. Varma at [facility]. Current dc plan is to return home, family will provide ride. Addendum: 03/10/20 at 1643 by KRISTEN GRIFFIN RN Amended: Links added.
[2020-03-10] MEDS ORDERED: IOHEXOL-350 100 ML VIAL IV ONE (17:55)
[2020-03-10] MEDS ORDERED: IV NS 0.9% 250 ML IV ONE (17:55)
[2020-03-10] MEDS ORDERED: CT SWABBABLE VALVE TRANS SET 1 EA INFUS.SET MC ONE (17:55)
--- NOTE | 2020-03-10 18:13 | NUR ---
cable television program director note signed consent for ct chest angio
--- NOTE | 2020-03-10 19:08 | NUR ---
CHARRER NOTE TAKEN TO CT ANGIOGRAM
--- NOTE | 2020-03-10 19:15 | NUR ---
WINDOWS SERVER ADMINISTRATOR NOTE ATIVAN WAS NOT GIVEN TO AMY M[facility] ON [facility] NOTIFIED
--- NOTE | 2020-03-10 19:30 | NUR ---
EARLY CHILDHOOD DIRECTOR NOTES PATIENT IN BED, ASLEEP, EASILY AROUSED. ALERT AND ORIENTED X 4. BREATHING EVEN AND UNLABORED ON 3L NC. SHOWS NO SIGNS OF ACUTE RESPIRATORY DISTRESS. NO ACUTE PAIN. CAME BACK FOR CT PULMONARY ANGIO. PT VITAL SIGNS WNL AND RESTING. TELE SR. IV ON R UA MIDLINE 18G SHOWS NO SIGNS OF INFILTRATION, NO REDNESS. AND L ARM AV SHUNT DRESSING INTACT. SAFETY PRECAUTIONS IN PLACE. BED IN LOWEST POSITION, LOCKED, AND CALL LIGHT KEPT WITHIN REACH. WILL CONTINUE TO MONITOR.
[2020-03-10] MEDS: ATORVASTATIN 10 MG TABLET PO SCH (21:35)
[2020-03-10] MEDS: ropiniROLE 0.5 MG TABLET PO SCH (21:35)
[2020-03-10] MEDS: MIRTAZAPINE 15 MG TABLET PO SCH (21:35)
[2020-03-10] MEDS: TEMAZEPAM 15 MG CAPSULE PO PRN (22:55)
[2020-03-11] MEDS: methylPREDNISolone SOD SUCC 125 MG/2ML VIAL IV SCH ×3 (05:14→22:04)
[2020-03-11 06:27] LABS: MAGNESIUM 2.6 mg/dL (1.8-2.4); PHOSPHORUS 4.4 mg/dL (2.5-4.9); POTASSIUM 4.4 mmol/L (3.5-5.1)
--- NOTE | 2020-03-11 06:31 | NUR ---
PRORATION CLERK NOTES PATIENT IN BED, AWAKE, RESTING. ALERT AND ORIENTED X 4. BREATHING EVEN AND UNLABORED ON 3L NC. SHOWS NO SIGNS OF ACUTE RESPIRATORY DISTRESS. NO ACUTE PAIN. TELE SR. IV ON R UA MIDLINE 18G SHOWS NO SIGNS OF INFILTRATION, NO REDNESS. AND L ARM AV SHUNT DRESSING INTACT. ALL DUE MEDICATIONS GIVEN. ALL NEEDS ATTENDED TO. SAFETY PRECAUTIONS IN PLACE. BED IN LOWEST POSITION, LOCKED, AND CALL LIGHT KEPT WITHIN REACH. WILL ENDORSE TO ONCOMING NURSE.
[2020-03-11 06:39] LABS: BASOPHILS % (AUTO) 0.1 % (0.0-2.0); HEMATOCRIT 24 % (39-51); HEMOGLOBIN 7.8 g/dL (13.5-17.5); LYMPHOCYTES # (AUTO) 0.5 /CMM (0.8-4.8); LYMPHOCYTES % (AUTO) 5.5 % (20.0-44.0); MEAN CORPUSCULAR HGB CONC 33 g/dl (31.0-36.0); MEAN CORPUSCULAR VOLUME 87 fL (80-96); MONOCYTES # (AUTO) 0.1 /CMM (0.1-1.30); MONOCYTES % (AUTO) 1.7 % (2.0-12.0); NEUTROPHILS # (AUTO) 7.6 /CMM (1.8-8.9); NEUTROPHILS % (AUTO) 92.7 % (43.0-81.0); PLATELET COUNT (AUTO) 207 /CMM (150-450); RED BLOOD CELL COUNT(AUTO) 2.74 MIL/uL (4.5-6.0); WHITE BLOOD COUNT (AUTO) 8.3 K/uL (4.3-11.0)
[2020-03-11 06:49] LABS: CREATININE 9.8 mg/dL (0.6-1.3)
--- NOTE | 2020-03-11 07:40 | NUR ---
MANAGER VIDEO NOTES PATIENT RECEIVED IN BED, SLEEPING EASILY AWAKEN BY NAME. ALERT AND ORIENTED X 4. PATIENT ON 3 LITERS OF NASAL CANNULA WITH NO SIGNS OF RESPIRATORY DISTRESS AT THIS TIME, WITH EVEN NON-LABORED BREATHING. ON SOURCE WATER PROTECTION SPECIALIST, SINUS RHYTHM. PATIENT SKIN WARM AND DRY TO TOUCH, IV ACCESS INTACT AND PATENT ON RIGHT UPPER MIDLINE, SALINE FLUSH. L FA AV SHUNT NOTED. PATIENT DENIES PAIN AND DISCOMFORT AT THIS TIME. SAFETY PRECAUTIONS IMPLEMENTED WITH THE BED IN THE LOWEST POSITION, BILATERAL SIDE RAILS UP, BED LOCKED, AND CALL LIGHT WITHIN EASY REACH. WILL CONTINUE TO MONITOR PATIENT.
[2020-03-11 08:00] VITALS: BP 152/82
[2020-03-11] MEDS: VIT B CMPLX 3/FA/VIT C/BIOTIN 1 TAB TABLET PO SCH (08:03)
[2020-03-11] MEDS: ESCITALOPRAM OXALATE (10 MG) 10 MG TABLET PO SCH (08:03)
[2020-03-11] MEDS: BLOOD SUGAR DIAGNOSTIC 1 EACH STRIP IN SCH ×4 (08:03→22:05)
[2020-03-11] MEDS: PANTOPRAZOLE 40 MG TABLET.DR PO SCH (08:03)
[2020-03-11] MEDS: SEVELAMER CARBONATE 800 MG TABLET PO SCH ×3 (08:03→17:31)
[2020-03-11] MEDS: CALCIUM ACETATE 667 MG TABLET PO SCH ×3 (08:03→17:31)
--- NOTE | 2020-03-11 08:05 | NUR ---
OUTSIDE PLANT SUPERVISOR NOTES PATIENT ASKING FOR BREAKFAST, INFORMED HOSPITALIST NIGHAT MCGOVERN DNP, ORDERED RENAL DIET 60 GM, WILL CARRY OUT ORDERS AND CONTINUE TO MONITOR PATIENT.
[2020-03-11 08:06] LABS: COMPLEMENT C3, SERUM 94 mg/dL (82-167); COMPLEMENT C4, SERUM 18 mg/dL (12-38)
[2020-03-11] MEDS: NIFEdipine XL (30MG) 30 MG TAB PO SCH (08:10)
[2020-03-11] MEDS: CARVEDILOL 6.25 MG TABLET PO SCH ×2 (08:10→17:00)
[2020-03-11] MEDS: INSULIN REGULAR, HUMAN 100 UNIT/ML 3 ML VIAL SQ PRN ×4 (08:12→22:20)
[2020-03-11] MEDS: FLUTICASONE 110MCG 1 EA INHALER IH SCH ×2 (08:14→22:05)
[2020-03-11 12:00] VITALS: BP 133/70
[2020-03-11] MEDS: SOD FERRIC GLUC 125 MG in IV NS 0.9% 100 ML IV SCH (14:00)
--- NOTE | 2020-03-11 18:18 | NUR ---
INTERNET DEVELOPER NOTES PATIENT IN BED RESTING COMFORTABLY, ALERT AND ORIENTED X 4. PATIENT ON 3 LITERS OF NASAL CANNULA WITH NO SIGNS OF RESPIRATORY DISTRESS AT THIS TIME, WITH EVEN NON-LABORED BREATHING. ON BURRING MACHINE OPERATOR, SINUS RHYTHM 79. PATIENT SKIN KEPT CLEAN, WARM AND DRY TO TOUCH, IV ACCESS INTACT AND PATENT ON RIGHT UPPER MIDLINE, SALINE FLUSH. L FA AV SHUNT NOTED. PATIENT DENIES PAIN AND DISCOMFORT AT THIS TIME. MET ALL OF PATIENT NEEDS. SAFETY PRECAUTIONS IMPLEMENTED WITH THE BED IN THE LOWEST POSITION, BILATERAL SIDE RAILS UP, BED LOCKED, AND CALL LIGHT WITHIN EASY REACH. WILL ENDORSE PLAN OF CARE TO UPCOMING RN.
--- NOTE | 2020-03-11 19:39 | NUR ---
TELE-1/PROMOTIONS EXECUTIVE PRODUCER PT BEING WORKED UP FOR TB. MOVED TO NEGATIVE PRESSURE ROOM 101.
[2020-03-11] MEDS: ALPRAZOLAM 1 MG TABLET PO PRN (19:48)
[2020-03-11 20:00] VITALS: BP 130/49
[2020-03-11] MEDS: ropiniROLE 0.5 MG TABLET PO SCH (22:05)
[2020-03-11] MEDS: MIRTAZAPINE 15 MG TABLET PO SCH (22:05)
[2020-03-11] MEDS: ATORVASTATIN 10 MG TABLET PO SCH (22:05)
[2020-03-12] VITALS: BP 139/58
[2020-03-12 04:00] VITALS: BP 135/63
[2020-03-12] MEDS: methylPREDNISolone SOD SUCC 125 MG/2ML VIAL IV SCH ×3 (04:40→20:22)
--- NOTE | 2020-03-12 06:10 | NUR ---
TELE-1/GEO COLLECTED [employer].
--- NOTE | 2020-03-12 07:34 | NUR ---
PT RECEIVED AO X 4 ON 3L O2. NO RESPIRATORY DISTRESS OR SOB. PT ON MONITOR SHOWING SINUS RHYTHM. SKIN INTACT AND PT IS AMBULATORY. PT ON RENAL DIET. PT HAS ANGEL MIDLINE AND LIJ BOTH HL., LEFT UPPER ARM AV SHUNT IN PLACE. BED IN LOCKED LOWEST POSITION, CALL LIGHT WITHIN REACH, ALL SAFETY MEASURES IN PLACE. WILL CONTINUE TO MONITOR CLOSELY
[2020-03-12 08:00] VITALS: BP 147/72
[2020-03-12] MEDS: ESCITALOPRAM OXALATE (10 MG) 10 MG TABLET PO SCH (08:07)
[2020-03-12] MEDS: PANTOPRAZOLE 40 MG TABLET.DR PO SCH (08:07)
[2020-03-12] MEDS: CALCIUM ACETATE 667 MG TABLET PO SCH ×3 (08:07→17:52)
[2020-03-12] MEDS: SEVELAMER CARBONATE 800 MG TABLET PO SCH ×3 (08:07→17:51)
[2020-03-12] MEDS: BLOOD SUGAR DIAGNOSTIC 1 EACH STRIP IN SCH ×4 (08:07→22:06)
[2020-03-12] MEDS: VIT B CMPLX 3/FA/VIT C/BIOTIN 1 TAB TABLET PO SCH (08:07)
[2020-03-12] MEDS: LEVOFLOXACIN 750 MG /D5W 150ML 150 ML IV SCH (08:09)
[2020-03-12] MEDS: INSULIN REGULAR, HUMAN 100 UNIT/ML 3 ML VIAL SQ PRN ×4 (08:15→22:34)
[2020-03-12] MEDS: NIFEdipine XL (30MG) 30 MG TAB PO SCH (08:16)
[2020-03-12] MEDS: CARVEDILOL 6.25 MG TABLET PO SCH ×2 (08:16→17:51)
[2020-03-12] MEDS: FLUTICASONE 110MCG 1 EA INHALER IH SCH ×2 (08:31→20:22)
[2020-03-12 09:10] LABS: BASOPHILS % (AUTO) 0.1 % (0.0-2.0); HEMATOCRIT 24 % (39-51); HEMOGLOBIN 7.4 g/dL (13.5-17.5); LYMPHOCYTES # (AUTO) 0.5 /CMM (0.8-4.8); LYMPHOCYTES % (AUTO) 3.8 % (20.0-44.0); MEAN CORPUSCULAR HGB CONC 31 g/dl (31.0-36.0); MEAN CORPUSCULAR VOLUME 90 fL (80-96); MONOCYTES # (AUTO) 0.2 /CMM (0.1-1.30); MONOCYTES % (AUTO) 1.3 % (2.0-12.0); NEUTROPHILS # (AUTO) 13.2 /CMM (1.8-8.9); NEUTROPHILS % (AUTO) 94.8 % (43.0-81.0); PLATELET COUNT (AUTO) 195 /CMM (150-450); RED BLOOD CELL COUNT(AUTO) 2.64 MIL/uL (4.5-6.0); WHITE BLOOD COUNT (AUTO) 13.9 K/uL (4.3-11.0)
[2020-03-12 10:01] LABS: CALCIUM, SERUM 8.7 mg/dL (8.5-10.1); POTASSIUM 4.8 mmol/L (3.5-5.1)
[2020-03-12 10:03] LABS: CREATININE 11.5 mg/dL (0.6-1.3)
--- NOTE | 2020-03-12 11:52 | NUR ---
DORITA MCGOVERN MADE AWARE OF LAB VALUES GLU 406, 10U INSULIN GAVE PER PROTOCOL, CR 11.5, BUN 106, HGB 7.4, HCT 24. HD IN PT ROOM NOW. NO NEW ORDERS AT THIS TIME
[2020-03-12 12:00] VITALS: BP 124/38
--- NOTE | 2020-03-12 13:00 | NUR ---
FINISHING MACHINE OPERATOR AUTOMATIC REPORTS 2L REMOVED DURING HD
[2020-03-12] MEDS: SOD FERRIC GLUC 125 MG in IV NS 0.9% 100 ML IV SCH (15:19)
[2020-03-12 16:00] VITALS: BP 141/80
[2020-03-12 16:10] LABS: *ANA ANTI-CENTROMERE B AB <0.2 AI (0.0-0.9); *ANA ANTI-DNA(DS) AB, QN <1 IU/mL (0-9); *ANA ANTI-JO-1 <0.2 AI (0.0-0.9); *ANA ANTICHROMATIN ANTIBODY <0.2 AI (0.0-0.9); *ANA RNP ANTIBODIES <0.2 AI (0.0-0.9); *ANA SJOGREN'S ANTI-SS-A <0.2 AI (0.0-0.9); *ANA SJOGREN'S ANTI-SS-B <0.2 AI (0.0-0.9); *ANAANTI-SCLERODERMA-70 AB <0.2 AI (0.0-0.9); *ANASMITH AB <0.2 AI (0.0-0.9)
--- NOTE | 2020-03-12 17:02 | NUR ---
PT STATES HE USES 3L O2 NASAL CANNULA AT HOME. PT ABLE TO BE TITRATED TO 2L O2, O2 SAT 95%.
[2020-03-12] MEDS: ALPRAZOLAM 1 MG TABLET PO PRN (18:12)
--- NOTE | 2020-03-12 19:28 | NUR ---
PT REMAINS IN BED, ALERT AND ORIENTED X 4. PT ON 2L O2 SATURATION, O2 SATS 95%. NO RESPIRATORY DISTRESS OR SOB. PT HAS ANGEL MIDLINE HL, AND PREVIOUSLY HAD LEFT IJ ACCIDENTALLY DISLODGED AND REMOVED BY PATIENT. NO SIGNS OF INFECTION OR INFILTRATION. PT BLOOD SUGARS OF 300-400 REPORTED TO ONCOMING RN. PT ON RENAL DIET, EATING 100% OF MEALS. PT AMBULATORY TO BATHROOM, SELF REPORTS 1 BM AND 2 VOIDS THIS SHIFT. PT HAD 2L REMOVED DURING HD TODAY. BED IN LOCKED LOWEST POSITION, CALL LIGHT WITHIN REACH, ALL SAFETY MEASURES IN PLACE. REPORT GIVEN TO BRAYDEN FOR [place].
--- NOTE | 2020-03-12 19:30 | NUR ---
RN NOTE RECEIVED PATIENT IN BED, AO X4. PATIENT IN NO S/SX OF ACUTE DISTRESS AT THIS TIME. PATIENT'S BREATHING IS EVEN AND UNLABORED. PATIENT IS ON 2 L OF OXYGEN VIA NC, TOLERATING WELL, SATURATING AT 96%, HR IS 75. NOTED ANGEL MIDLINE, BOTH HUBS PATENT AND FLUSHING WELL, AND BC AV SHUNT, INTACT, NO INFECTION NOTED. PATIENT IS AMBULATORY. SAFETY MEASURES IMPLEMENTED PER PROTOCOL. CALL LIGHT WITHIN REACH OF THE PATIENT. WILL CONTINUE TO MONITOR AND REASSESS FOR ANY CHANGES.
[2020-03-12 20:00] VITALS: BP 125/41
[2020-03-12] MEDS: ATORVASTATIN 10 MG TABLET PO SCH (22:07)
[2020-03-12] MEDS: MIRTAZAPINE 15 MG TABLET PO SCH (22:08)
[2020-03-12] MEDS: ropiniROLE 0.5 MG TABLET PO SCH (22:10)
[2020-03-13 04:00] VITALS: BP 139/68
[2020-03-13] MEDS: methylPREDNISolone SOD SUCC 125 MG/2ML VIAL IV SCH ×2 (04:48→12:10)
[2020-03-13 06:15] LABS: BASOPHILS % (AUTO) 0.1 % (0.0-2.0); HEMATOCRIT 23 % (39-51); HEMOGLOBIN 7.1 g/dL (13.5-17.5); LYMPHOCYTES # (AUTO) 0.5 /CMM (0.8-4.8); LYMPHOCYTES % (AUTO) 3.5 % (20.0-44.0); MEAN CORPUSCULAR HGB CONC 31 g/dl (31.0-36.0); MEAN CORPUSCULAR VOLUME 90 fL (80-96); MONOCYTES # (AUTO) 0.3 /CMM (0.1-1.30); MONOCYTES % (AUTO) 2.6 % (2.0-12.0); NEUTROPHILS # (AUTO) 12.4 /CMM (1.8-8.9); NEUTROPHILS % (AUTO) 93.8 % (43.0-81.0); PLATELET COUNT (AUTO) 212 /CMM (150-450); RED BLOOD CELL COUNT(AUTO) 2.54 MIL/uL (4.5-6.0); WHITE BLOOD COUNT (AUTO) 13.2 K/uL (4.3-11.0)
[2020-03-13 06:38] LABS: CALCIUM, SERUM 8.4 mg/dL (8.5-10.1); POTASSIUM 4.9 mmol/L (3.5-5.1)
[2020-03-13 06:46] LABS: CREATININE 9.1 mg/dL (0.6-1.3)
--- NOTE | 2020-03-13 06:46 | NUR ---
RN NOTE BLOOD GLUCOSE OBTAINED 474, TEST WAS REPEATED AND RESULTED 454. 10 UNITS OF INSULIN WAS ADMINISTERED, SENIOR TABLEAU DEVELOPER MADE AWARE, DR GOLDSTEIN WAS NOTIFIED. TELEPHONE CALL RECEIVED FROM JOSÉ LUIS MALHOTRA FROM LAB, RELAYED CRITICAL LAB VALUE OF GLUCOSE 506. DR GOLDSTEIN WAS NOTIFIED, ORDERS RECEIVED: GIVE ANOTHER 12 UNITS X 1. SENIOR TABLEAU DEVELOPER AMDE AWARE.
[2020-03-13] MEDS: INSULIN REGULAR, HUMAN 100 UNIT/ML 3 ML VIAL SQ PRN ×4 (06:50→22:16)
[2020-03-13] MEDS: BLOOD SUGAR DIAGNOSTIC 1 EACH STRIP IN SCH ×4 (06:57→21:59)
[2020-03-13] MEDS ORDERED: INSULIN REGULAR, HUMAN 100 UNIT/ML 3 ML VIAL SQ ONE (07:30)
[2020-03-13 08:00] VITALS: BP 157/87
--- NOTE | 2020-03-13 08:00 | NUR ---
ms rn note patient in bed all needs attended, on 2l nc no sob noted at this time rt upper arm mid line in place, serene av shunt in place bed in lowest and locked position , call light within reach ,will cont to monitor
[2020-03-13] MEDS: SEVELAMER CARBONATE 800 MG TABLET PO SCH ×3 (08:26→17:47)
[2020-03-13] MEDS: CALCIUM ACETATE 667 MG TABLET PO SCH ×3 (08:26→17:47)
[2020-03-13] MEDS: CARVEDILOL 6.25 MG TABLET PO SCH ×2 (08:27→16:59)
[2020-03-13] MEDS: PANTOPRAZOLE 40 MG TABLET.DR PO SCH (08:27)
[2020-03-13] MEDS: ESCITALOPRAM OXALATE (10 MG) 10 MG TABLET PO SCH (08:27)
[2020-03-13] MEDS: VIT B CMPLX 3/FA/VIT C/BIOTIN 1 TAB TABLET PO SCH (08:27)
[2020-03-13] MEDS: NIFEdipine XL (30MG) 30 MG TAB PO SCH (08:28)
[2020-03-13] MEDS: FLUTICASONE 110MCG 1 EA INHALER IH SCH ×2 (08:33→22:19)
--- NOTE | 2020-03-13 10:57 | NUR ---
MS RN NOTE SPUTUM FOR [employer] NUMBER 2 COLLECTED, CALL LAB
[2020-03-13 12:00] VITALS: BP 180/95
--- NOTE | 2020-03-13 12:58 | NUR ---
PROFESSOR OF RELIGION NOTE NIGHAT DNP NOTIFIED THAT BLOOD SUGAR 468MG\DL 10 UNITS INSULIN SQ GIVEN AND AWARE THAT BP 180/95 AT THIS TIME STATED WILL CHECK IT OUT
[2020-03-13] MEDS: hydrALAZINE HCL 25 MG TABLET PO PRN (13:36)
[2020-03-13] MEDS: SOD FERRIC GLUC 125 MG in IV NS 0.9% 100 ML IV SCH (14:34)
--- NOTE | 2020-03-13 14:45 | NUR ---
telecine operator note sputum number 3 afb collected call lab
[2020-03-13 17:06] LABS: *ANCANTIMYELOPEROXIDASE (MPO) <9.0 U/mL (0.0-9.0); *ANCANTIPROTEINASE 3 (PR-3) AB <3.5 U/mL (0.0-3.5)
--- NOTE | 2020-03-13 17:48 | NUR ---
PRODUCE ASSOCIATE NOTE BLOOD SUGAR 415 MG\DL 190 UNITS INSULIN SQ GIVEN NIGHAT DNP NOTIFIED NO OTHER ORDERS GIVEN
--- NOTE | 2020-03-13 18:22 | NUR ---
television installer note resting comfortably not in distress
--- NOTE | 2020-03-13 18:49 | NUR ---
BIOMASS PLANT TECHNICIAN NOTE RECEIVED REPORT FROM LAB SPOKE WITH JUDY REPORTED THAT [employer] ON 03/12/20 NEGATIVE
--- NOTE | 2020-03-13 19:00 | NUR ---
RN OPENING NOTE RECEIVED PATIENT IN BED RESTING ALERT ORIENTED X4 VERBALLY RESPONSIVE R/O FOR TB ON DROPLET/AIR BORN PRECAUTION,ON 2L OXYGEN VIA NASAL CANNULA O2:94% IV SITE IS ON RIGHT UPPER ARM INTACT PATENT AND LEFT UPPER ARM AV SHUNT FOR DIALYSIS,BRUIT AN THRILL ARE PRESENT,CONTINENT TO BOWEL/BLADDER,SAFETY MEASURE IMPLEMENT,CALL LIGHT WITHIN REACH,CONTINUE TO MONITOR.
[2020-03-13] MEDS: ALPRAZOLAM 1 MG TABLET PO PRN (19:28)
[2020-03-13 20:00] VITALS: BP 153/66
[2020-03-13 20:07] LABS: COMPLEMENT, TOTAL (CH50) 49 U/mL (>41)
[2020-03-13] MEDS: ropiniROLE 0.5 MG TABLET PO SCH (21:43)
[2020-03-13] MEDS: ATORVASTATIN 10 MG TABLET PO SCH (21:43)
[2020-03-13] MEDS: MIRTAZAPINE 15 MG TABLET PO SCH (21:44)
[2020-03-13] MEDS: TEMAZEPAM 15 MG CAPSULE PO PRN (22:35)
[2020-03-14 04:00] VITALS: BP 150/66
[2020-03-14 05:49] LABS: BASOPHILS # (AUTO) 0.1 /CMM (0.0-0.2); BASOPHILS % (AUTO) 0.3 % (0.0-2.0); HEMATOCRIT 24 % (39-51); HEMOGLOBIN 7.5 g/dL (13.5-17.5); LYMPHOCYTES # (AUTO) 0.6 /CMM (0.8-4.8); LYMPHOCYTES % (AUTO) 3.9 % (20.0-44.0); MEAN CORPUSCULAR HGB CONC 31 g/dl (31.0-36.0); MEAN CORPUSCULAR VOLUME 90 fL (80-96); MONOCYTES # (AUTO) 0.7 /CMM (0.1-1.30); MONOCYTES % (AUTO) 4.1 % (2.0-12.0); NEUTROPHILS # (AUTO) 15.2 /CMM (1.8-8.9); NEUTROPHILS % (AUTO) 91.7 % (43.0-81.0); PLATELET COUNT (AUTO) 215 /CMM (150-450); RED BLOOD CELL COUNT(AUTO) 2.67 MIL/uL (4.5-6.0); WHITE BLOOD COUNT (AUTO) 16.6 K/uL (4.3-11.0)
[2020-03-14 05:58] LABS: CALCIUM, SERUM 8.5 mg/dL (8.5-10.1); MAGNESIUM 2.4 mg/dL (1.8-2.4); PHOSPHORUS 4.7 mg/dL (2.5-4.9); POTASSIUM 5.4 mmol/L (3.5-5.1)
--- NOTE | 2020-03-14 06:42 | NUR ---
RN CLOSING NOTE PATIENT REMAINS IN STABLE CONDITION,ALERT ORIENTED X4 VERBALLY RESPONSIVE NO SOB NOT ACUTE DISTRESS NOTED,HE IS ON 2L OXYGEN VIA NASAL CANNULA, O2:96% ,STILL MARISOL MONITORING FOR R/O FOR TB ON AIRBORNE/DROPLET PRECAUTION,ALL DUE MEDS GIVEN MD ORDERED,KEEP COMFORTABLE,KEEP CALL LIGHT WITHIN REACH,ALL NEEDS MET ENDORSE NEXT COMING SHIFT FOR CONTINUATION OF CARE.
[2020-03-14 06:48] LABS: CREATININE 10.6 mg/dL (0.6-1.3)
[2020-03-14 08:00] VITALS: BP 135/93
--- NOTE | 2020-03-14 08:00 | NUR ---
RN NOTE NO ACUTE CHANGES DURING MY SHIFT, REPORT GIVEN TO INCOMING SHIFT FOR [place].
[2020-03-14] MEDS: BLOOD SUGAR DIAGNOSTIC 1 EACH STRIP IN SCH ×4 (08:12→21:59)
[2020-03-14] MEDS: CALCIUM ACETATE 667 MG TABLET PO SCH ×3 (08:15→17:24)
[2020-03-14] MEDS: SEVELAMER CARBONATE 800 MG TABLET PO SCH ×3 (08:16→17:23)
[2020-03-14] MEDS: PANTOPRAZOLE 40 MG TABLET.DR PO SCH (08:16)
[2020-03-14] MEDS: INSULIN REGULAR, HUMAN 100 UNIT/ML 3 ML VIAL SQ PRN ×4 (08:52→22:08)
[2020-03-14] MEDS ORDERED: EPOETIN ALFA (10,000 UNIT) 10,000 UNIT/ML VIAL IV ONE (09:00)
[2020-03-14] MEDS ORDERED: methylPREDNISolone SOD SUCC 125 MG/2ML VIAL IV SCH (09:00)
[2020-03-14] MEDS: LEVOFLOXACIN 750 MG /D5W 150ML 150 ML IV SCH (10:00)
[2020-03-14] MEDS: NICOTINE PATCH (14MG) 14 MG PATCH.TD24 TD SCH (10:00)
[2020-03-14] MEDS: VIT B CMPLX 3/FA/VIT C/BIOTIN 1 TAB TABLET PO SCH (10:00)
[2020-03-14] MEDS: FLUTICASONE 110MCG 1 EA INHALER IH SCH ×2 (10:01→20:22)
[2020-03-14] MEDS: ESCITALOPRAM OXALATE (10 MG) 10 MG TABLET PO SCH (10:04)
[2020-03-14] MEDS: INSULIN GLARGINE, 100 UNIT/ML CARTRIDGE SQ SCH ×2 (11:09→22:05)
[2020-03-14] MEDS: CARVEDILOL 6.25 MG TABLET PO SCH ×2 (12:00→17:23)
[2020-03-14] MEDS: NIFEdipine XL (30MG) 30 MG TAB PO SCH (12:00)
[2020-03-14 14:08] LABS: *ANCA ATYPICAL p-ANCA <1:20 titer (Neg:<1:20); *ANCA CYTOPLASMIC (C-ANCA) <1:20 titer (Neg:<1:20); *ANCA PERINUCLEAR (P-ANCA) <1:20 titer (Neg:<1:20)
[2020-03-14 16:00] VITALS: BP 161/65
--- NOTE | 2020-03-14 18:30 | NUR ---
RN OPENING NOTE RECEIVED PATIENT IN BED RESTING ALERT ORIENTED X4 VERBALLY RESPONSIVE ABLE TO MAKE NEEDS KNOWN, R/O FOR TB ON DROPLET/AIR BORN PRECAUTION,ON 2L OXYGEN VIA NASAL CANNULA O2:94% IV SITE IS ON RIGHT UPPER ARM INTACT PATENT,FLUSHED,AND LEFT UPPER ARM AV SHUNT FOR DIALYSIS,BRUIT AN THRILL ARE PRESENT,CONTINENT TO BOWEL/BLADDER,CALL LIGHT WITHIN REACH,SAFETY MEASURE IMPLEMENT,CONTINUE TO MONITOR.
--- NOTE | 2020-03-14 18:49 | NUR ---
RN NOTE PT REMAINED STABLE DURING MY SHIFT NO ACUTE CHANGES, REPRT GIVN TO INCOMING SHIFT FOR [place].
[2020-03-14] MEDS: ALPRAZOLAM 1 MG TABLET PO PRN (19:21)
[2020-03-14] MEDS: ropiniROLE 0.5 MG TABLET PO SCH (21:25)
[2020-03-14] MEDS: ATORVASTATIN 10 MG TABLET PO SCH (21:25)
[2020-03-14] MEDS: MIRTAZAPINE 15 MG TABLET PO SCH (21:25)
[2020-03-14] MEDS: TEMAZEPAM 15 MG CAPSULE PO PRN (22:04)
[2020-03-15] VITALS: BP 159/84
[2020-03-15] MEDS: hydrALAZINE HCL 25 MG TABLET PO PRN (06:38)
--- NOTE | 2020-03-15 06:40 | NUR ---
RN NOTE RECEIVED CRITICAL LAB RESULT BUN 108 AND CREATININE 9.[address] GOLDSTEIN WITH NO NEW ORDER AT THIS TIME,CONTINUE TO MONITOR
--- NOTE | 2020-03-15 06:42 | NUR ---
RN CLOSING NOTE PATIENT REMAINS IN ALERT ORIENTED X4 VERBALLY RESPONSIVE NO SOB NOT ACUTE DISTRESS NOTED,STILL R/O FOR TB ON AIRBORNE/DROPLET PRECAUTION,ALL DUE MEDS GIVEN MD ORDERED,KEPT CLEAN AND DRY ALL THE TIME,KEPT COMFORTABLE,KEPT CALL LIGHT WITHIN REACH,ALL NEEDS MET,ENDORSE NEXT COMING SHIFT FOR CONTINUATION OF CARE.
[2020-03-15 06:44] LABS: BASOPHILS % (AUTO) 0.1 % (0.0-2.0); HEMATOCRIT 26 % (39-51); HEMOGLOBIN 8.3 g/dL (13.5-17.5); LYMPHOCYTES # (AUTO) 0.9 /CMM (0.8-4.8); LYMPHOCYTES % (AUTO) 6.4 % (20.0-44.0); MEAN CORPUSCULAR HGB CONC 31 g/dl (31.0-36.0); MEAN CORPUSCULAR VOLUME 91 fL (80-96); MONOCYTES # (AUTO) 0.6 /CMM (0.1-1.30); MONOCYTES % (AUTO) 4.4 % (2.0-12.0); NEUTROPHILS # (AUTO) 12.4 /CMM (1.8-8.9); NEUTROPHILS % (AUTO) 89.1 % (43.0-81.0); PLATELET COUNT (AUTO) 230 /CMM (150-450); RED BLOOD CELL COUNT(AUTO) 2.89 MIL/uL (4.5-6.0)
[2020-03-15 06:59] LABS: CALCIUM, SERUM 8.4 mg/dL (8.5-10.1); POTASSIUM 5.1 mmol/L (3.5-5.1)
[2020-03-15 07:07] LABS: *SPE A/G RATIO 1.2 (0.7-1.7); *SPE ALBUMIN 3.3 g/dL (2.9-4.4); *SPE ALPHA-1-GLOBULIN 0.3 g/dL (0.0-0.4); *SPE ALPHA-2-GLOBULIN 0.8 g/dL (0.4-1.0); *SPE GLOBULIN, TOTAL 2.8 g/dL (2.2-3.9); *SPE M-SPIKE Not Observed g/dL (Not Observed); *SPEGAMMA GLOBULIN 0.7 g/dL (0.4-1.8)
[2020-03-15 07:16] LABS: CREATININE 9.7 mg/dL (0.6-1.3)
--- NOTE | 2020-03-15 07:30 | NUR ---
OPENING NOTES PRESENT IN BED, SITTING, RELAXED, DENIES PAIN OR DISCOMFORT, ON NC 2L TOLERATING WELL, NO SOB, NO DISTRESS NOTED, ABLE TO AMBULATE TO BATHROOM AND SHOWER, MED-SURG STATUS, RENAL DIET, R UPPER ARM MIDLINE PRESENT, INTACT, PATENT AND FLUSHED, BC AV SHUNT, INTACT, SAFETY MEASURES IN PLACE, CALL LIGHT IN REACH, WILL CONT TO MONITOR
[2020-03-15 08:00] VITALS: BP 184/55
[2020-03-15 08:13] LABS: IMMUNOGLOBULIN A, SERUM 171 mg/dL (90-386); IMMUNOGLOBULIN G, SERUM 750 mg/dL (603-1613); IMMUNOGLOBULIN M, SERUM 25 mg/dL (20-172)
[2020-03-15] MEDS: CALCIUM ACETATE 667 MG TABLET PO SCH ×3 (08:29→17:15)
[2020-03-15] MEDS: BLOOD SUGAR DIAGNOSTIC 1 EACH STRIP IN SCH ×4 (08:29→22:30)
[2020-03-15] MEDS: VIT B CMPLX 3/FA/VIT C/BIOTIN 1 TAB TABLET PO SCH (08:29)
[2020-03-15] MEDS: ESCITALOPRAM OXALATE (10 MG) 10 MG TABLET PO SCH (08:29)
[2020-03-15] MEDS: PANTOPRAZOLE 40 MG TABLET.DR PO SCH (08:29)
[2020-03-15] MEDS: CARVEDILOL 6.25 MG TABLET PO SCH ×2 (08:30→16:36)
[2020-03-15] MEDS: methylPREDNISolone SOD SUCC 40 MG/ML VIAL IV SCH (08:30)
[2020-03-15] MEDS: NICOTINE PATCH (14MG) 14 MG PATCH.TD24 TD SCH (08:30)
[2020-03-15] MEDS: NIFEdipine XL (30MG) 30 MG TAB PO SCH (08:33)
[2020-03-15] MEDS: SEVELAMER CARBONATE 800 MG TABLET PO SCH ×3 (08:33→17:15)
[2020-03-15] MEDS: INSULIN REGULAR, HUMAN 100 UNIT/ML 3 ML VIAL SQ PRN ×4 (08:49→22:33)
[2020-03-15 09:30] VITALS: BP 163/68
[2020-03-15 09:44] LABS: LYMPHOCYTES % (MANUAL) 4 % (16-48); MONOCYTES % (MANUAL) 4 % (0-11.0); NEUTROPHILS % (MANUAL) 92 (42-76)
--- NOTE | 2020-03-15 10:45 | NUR ---
Agitated, pacing around room, requesting antianxiety medication
[2020-03-15] MEDS: ALPRAZOLAM 0.5 MG TABLET PO PRN ×2 (10:59→22:53)
--- NOTE | 2020-03-15 15:00 | NUR ---
SITTING IN BED, DENIES PAIN, NO SOB OBSERVED, CALL LIGHT IN REACH, CONT TO MONITOR
[2020-03-15 16:00] VITALS: BP 155/61
--- NOTE | 2020-03-15 19:08 | NUR ---
CLOSING NOTES PATIENT REMAINING IN ROOM, STABLE, CLEAN, TOLERATING O2 THERAPY WELL, NO SOB NOTED, DENIES PAIN OR DISCOMFORT, MEDICATIONS given, comfort needs attended, education provided, will endorse to PM SHIFT RN FOR [place]
--- NOTE | 2020-03-15 19:30 | NUR ---
MS RN OPENING NOTES PATIENT SLEEPING, AWAKENS TO TOUCH. A/OX4. STABLE ON RA; NO S/S OF ACUTE RESPIRATORY DISTRESS; BREATHING IS EVEN AND UNLABORED. NO C/O PAIN. IN CONTACT ISOLATION FOR R/O TB. MIDLINE ON RIGHT UPPER ARM, INTACT & PATENT, HEP LOCKED. SAFETY MEASURES IN PLACE AND PATIENT'S NEEDS MET. BED LOCKED, SIDE RAILS X2, CALL LIGHT WITHIN REACH. ENDORSED TO DAY SHIFT RN PLAN OF CARE.
[2020-03-15 20:00] VITALS: BP 138/50
[2020-03-15] MEDS: ATORVASTATIN 10 MG TABLET PO SCH (22:10)
[2020-03-15] MEDS: ropiniROLE 0.5 MG TABLET PO SCH (22:10)
[2020-03-15] MEDS: MIRTAZAPINE 15 MG TABLET PO SCH (22:11)
[2020-03-15] MEDS: INSULIN GLARGINE, 100 UNIT/ML CARTRIDGE SQ SCH (22:32)
[2020-03-15] MEDS: FLUTICASONE 110MCG 1 EA INHALER IH SCH (22:45)
[2020-03-16] MEDS: TEMAZEPAM 15 MG CAPSULE PO PRN (00:18)
[2020-03-16 04:00] VITALS: BP 106/70
--- NOTE | 2020-03-16 07:10 | NUR ---
RN OPENING NOTES RECEIVED PT AWAKE, A/OX4. ON RA SATURATING @100%. NO SOB OR ANY S/S OF ACUTE RESPIRATORY DISTRESS. NO PAIN RWPORTED AT THIS TIME. CONTACT ISOLATION FOR R/O TB. ANGEL MIDLINE INTACT, PATENT AND FLUSHED. HEP LOCKED. SAFETY MEASURES IN PLACE. CALL LIGHT WITHIN REACH. BED LOCKED AND AT LOWEST POSITION WITH SIDE RAILS X2. WILL CONTINUE TO MONITOR
[2020-03-16] MEDS: BLOOD SUGAR DIAGNOSTIC 1 EACH STRIP IN SCH ×2 (07:30→12:27)
--- NOTE | 2020-03-16 07:48 | NUR ---
MS RN CLOSING NOTES PATIENT SLEEPING. A/OX4. STABLE ON RA; NO S/S OF ACUTE RESPIRATORY DISTRESS; BREATHING IS EVEN AND UNLABORED. NO S/S OF PAIN NOTED. IN CONTACT ISOLATION FOR R/O TB. MIDLINE ON RIGHT UPPER ARM, INTACT & PATENT, HEP LOCKED. SAFETY MEASURES IN PLACE AND PATIENT'S NEEDS MET. BED LOCKED, SIDE RAILS X2, CALL LIGHT WITHIN REACH. ENDORSED TO DAY SHIFT RN PLAN OF CARE.
--- NOTE | 2020-03-16 08:00 | NUR ---
RN NOTES PT FOR HD. BP 126/46. STABLE CONDITION
[2020-03-16] MEDS: NICOTINE PATCH (14MG) 14 MG PATCH.TD24 TD SCH (08:11)
[2020-03-16] MEDS: ESCITALOPRAM OXALATE (10 MG) 10 MG TABLET PO SCH (08:11)
[2020-03-16] MEDS: VIT B CMPLX 3/FA/VIT C/BIOTIN 1 TAB TABLET PO SCH (08:11)
[2020-03-16] MEDS: CALCIUM ACETATE 667 MG TABLET PO SCH ×2 (08:11→12:12)
[2020-03-16] MEDS: PANTOPRAZOLE 40 MG TABLET.DR PO SCH (08:11)
[2020-03-16] MEDS: methylPREDNISolone SOD SUCC 40 MG/ML VIAL IV SCH (08:12)
[2020-03-16] MEDS: SEVELAMER CARBONATE 800 MG TABLET PO SCH ×2 (08:12→12:13)
[2020-03-16] MEDS: LEVOFLOXACIN 750 MG /D5W 150ML 150 ML IV SCH (08:12)
[2020-03-16] MEDS: INSULIN REGULAR, HUMAN 100 UNIT/ML 3 ML VIAL SQ PRN ×2 (08:38→12:44)
[2020-03-16] MEDS: CARVEDILOL 6.25 MG TABLET PO SCH (08:38)
[2020-03-16] MEDS: FLUTICASONE 110MCG 1 EA INHALER IH SCH (08:38)
[2020-03-16 08:39] VITALS: BP 126/42
[2020-03-16] MEDS: NIFEdipine XL (30MG) 30 MG TAB PO SCH (08:39)
[2020-03-16] MEDS ORDERED: NICOTINE PATCH (21MG) 21 MG PATCH.TD24 TD SCH (09:00)
[2020-03-16] MEDS ORDERED: DRONABINOL (2.5 MG) 2.5 MG CAPSULE PO SCH (09:11)
[2020-03-16] MEDS ORDERED: DRONABINOL 5 MG PO SCH (09:30)
--- NOTE | 2020-03-16 11:00 | NUR ---
RN NOTES HD DONE. BP 132/76. PT STABLE CONDITION. 3L OUT
--- NOTE | 2020-03-16 11:11 | NUR ---
XRAY DELAYED//DIALYSIS UNTILL 1PM
[2020-03-16] MEDS ORDERED: PNEUMOCOCCAL 23-VAL P-SAC VAC 0.5 ML VIAL IM ONE (15:00)
--- NOTE | 2020-03-16 15:30 | NUR ---
RN CLOSING NOTES PT DISCHARGED TO HOME. MEDICALLY STABLE. VS WNL. OBTAINED TAXI VOUCHER AT NURSING SUPERVISORS OFFICE PER PT REQUEST. DISCHARGE INSTRUCTIONS PROVIDED. VERBALIZED UNDERSTANDING. SKIN IS INTACT.
[2020-03-16] MEDS ORDERED: INSULIN GLARGINE, 100 UNIT/ML CARTRIDGE SQ SCH (22:00)
== END 2020-03-16 15:30 | disposition home or self-care (01) | DRG 663 ==
LOC: ER 10:11 → TELE 14:29 → TELE-TD 03-10 09:43 → TELE1 03-10 10:48 → MEDSG1 03-12 19:00
PROVIDERS: ADMIT Nurse Practitioner Acute Care; ATTEND Nurse Practitioner Acute Care
PROC: 30233N1 Transfusion of Nonautologous Red Blood Cells into Peripheral Vein, Percutaneous Approach (ICD-10-PCS; principal; 2020-03-09)
PROC: 5A1D70Z Performance of Urinary Filtration, Intermittent, Less than 6 Hours Per Day (ICD-10-PCS; 2020-03-09)
DX: D62 Acute posthemorrhagic anemia (principal); J15.9 Unspecified bacterial pneumonia; I13.2 Hypertensive heart and chronic kidney disease with heart failure and with stage 5 chronic kidney disease, or end stage renal disease; E11.22 Type 2 diabetes mellitus with diabetic chronic kidney disease; N18.6 End stage renal disease; Z99.2 Dependence on renal dialysis; E78.5 Hyperlipidemia, unspecified; E87.5 Hyperkalemia; I25.10 Atherosclerotic heart disease of native coronary artery without angina pectoris; I50.9 Heart failure, unspecified; G25.81 Restless legs syndrome; F32.9 Major depressive disorder, single episode, unspecified; Z86.718 Personal history of other venous thrombosis and embolism; F17.210 Nicotine dependence, cigarettes, uncomplicated; E66.9 Obesity, unspecified; E87.1 Hypo-osmolality and hyponatremia; Z20.828 Contact with and (suspected) exposure to other viral communicable diseases; K21.9 Gastro-esophageal reflux disease without esophagitis; Z95.1 Presence of aortocoronary bypass graft; Z71.6 Tobacco abuse counseling; J44.9 Chronic obstructive pulmonary disease, unspecified; E11.42 Type 2 diabetes mellitus with diabetic polyneuropathy; J44.0 Chronic obstructive pulmonary disease with (acute) lower respiratory infection; I21.A1 Myocardial infarction type 2; T38.0X5A Adverse effect of glucocorticoids and synthetic analogues, initial encounter; Y92.89 Other specified places as the place of occurrence of the external cause; D72.829 Elevated white blood cell count, unspecified; Z68.30 Body mass index [BMI] 30.0-30.9, adult; M35.9 Systemic involvement of connective tissue, unspecified; R04.2 Hemoptysis
CPT/HCPCS: 36410; 36415; 70491-TC; 71045-TC; 71250-TC; 76700-TC; 80048-TC; 80053-TC; 80061-TC; 80076-TC; 82728-TC; 82784; 82785; 82962-TC; 83516; 83520; 83540-TC; 83735-TC; 83880; 84100-TC; 84155; 84165; 84439-TC; 84443-TC; 84484-TC; 85025-TC; 85730-TC; 86162; 86225; 86235; 86256; 86334; 86480; 86706; 86803; 86850-TC; 87040-TC; 87070-TC; 87081-TC; 87116; 87206; 87340; 87899; 88108-TC; 88305-TC; 90935-TC; 93307-TC; 97116-TC; 97530-TC; C9803; G0378; J0885; J1815; J1940; J1956; J2916; J2920; J2930; J7030; J7050; P9016-BL; Q0167; Q9967; U0003

== ENCOUNTER 2021-02-26 21:23 | Inpatient (IN) | payer MEDICAID ==
[~2021-02-26] VITALS: Ht 167.6 cm; Wt 78.5 kg
[~2021-02-26 21:23] MED LIST changes: -ASPI-1420 PO; +LISI-768 PO; +MECL-182 PO; -MECL-183 PO; +MIRT-90 PO; -MIRT15TA7 PO
--- NOTE | 2021-02-26 21:30 | NUR ---
BIBRA 38 C/O SOB AT HOME, PT IS ON 4L O2 AT HOME. PATIENT ALERT AND ORIENTED X3. AMBULATORY AND PLACED ON NASAL CANULA 4L.
--- NOTE | 2021-02-26 22:00 | NUR ---
RT AT BEDSIDE
--- NOTE | 2021-02-26 22:05 | NUR ---
CORPORATE INTERN @ BEDSIDE
--- NOTE | 2021-02-26 22:15 | NUR ---
ABG RESULTS ARE NOT TRANSFERRING INTO [facility] ABG RESULTS ON NASAL CANNULA 4LPM O2 PH 7.36 CO2 36.2 PO2 116.6 HCO3 20.3 BE -4.4 PT O2 TITRATED TO 2LPM. COPY OF ABG RESULTS PLACED IN PHYSICAL CHART.
[2021-02-26 23:02] LABS: ALANINE AMINOTRANSFERASE 45 U/L (12-78); ALBUMIN 3.9 g/dL (3.4-5.0); ALKALINE PHOSPHATASE 630 U/L (46-116); ASPARTATE AMINOTRANSFERASE 31 U/L (15-37); BILIRUBIN,DIRECT 0.2 mg/dL (0.0-0.2); BILIRUBIN,TOTAL 0.6 mg/dL (0.2-1.0); CARBON DIOXIDE 25 mmol/L (21-32); GLUCOSE 99 mg/dL (74-106); TOTAL PROTEIN, SERUM 8.6 g/dL (6.4-8.2); UREA NITROGEN, BLOOD 61 mg/dL (7-18)
[2021-02-26 23:06] LABS: CHLORIDE 94 mmol/L (98-107); SODIUM SERUM 132 mmol/L (136-145)
[2021-02-26 23:07] LABS: BASOPHILS # (AUTO) 0.1 K/uL (0.0-0.2); BASOPHILS % (AUTO) 0.9 % (0.0-2.0); EOSINOPHILS % (AUTO) 6.8 % (0.0-6.0); HEMATOCRIT 40 % (39-51); HEMOGLOBIN 12.5 g/dL (13.5-17.5); LYMPHOCYTES # (AUTO) 1.1 K/uL (0.8-4.8); LYMPHOCYTES % (AUTO) 13.5 % (20.0-44.0); MEAN CORPUSCULAR HGB CONC 32 g/dl (31.0-36.0); MEAN CORPUSCULAR VOLUME 85 fL (80-96); MONOCYTES # (AUTO) 0.3 K/uL (0.1-1.30); MONOCYTES % (AUTO) 4.3 % (2.0-12.0); NEUTROPHILS # (AUTO) 5.9 K/uL (1.8-8.9); NEUTROPHILS % (AUTO) 74.5 % (43.0-81.0); PLATELET COUNT (AUTO) 220 K/uL (150-450); POTASSIUM 7.9 mmol/L (3.5-5.1); RED BLOOD CELL COUNT(AUTO) 4.64 MIL/uL (4.5-6.0); WHITE BLOOD COUNT (AUTO) 7.9 K/uL (4.3-11.0)
[2021-02-26 23:08] LABS: CREATININE 9.1 mg/dL (0.6-1.3)
[2021-02-26] MEDS ORDERED: Calcium Gluconate 0.465 MEQ/ML VIAL IV ONE (23:27)
[2021-02-26] MEDS ORDERED: FUROSEMIDE 40 MG/4 ML VIAL ONE (23:27)
[2021-02-26] MEDS ORDERED: INSULIN REGULAR, HUMAN 100 UNIT/ML 10 ML VIAL ONE (23:28)
[2021-02-26] MEDS ORDERED: SODIUM BICARBONATE SYR 50 MEQ/50 ML DISP.SYRIN ONE (23:28)
[2021-02-26] MEDS ORDERED: SODIUM POLYSTYRENE SULFONATE 15 G/60 ML BOTTLE ONE (23:28)
[2021-02-26] MEDS ORDERED: DEXTROSE 50%-WATER 50 ML DISP.SYRIN ONE (23:28)
[2021-02-26] MEDS ORDERED: Calcium Gluconate 1GM/10ML 4.65 MEQ in IV D5W 50 ML IV ONE (23:30)
[2021-02-26] MEDS ORDERED: INSULIN REGULAR, HUMAN 100 UNIT/ML 10 ML VIAL IV ONE (23:30)
[2021-02-26] MEDS ORDERED: SODIUM BICARBONATE SYR 50 MEQ/50 ML DISP.SYRIN IV ONE (23:30)
[2021-02-26] MEDS ORDERED: DEXTROSE 50%-WATER 50 ML DISP.SYRIN IV ONE (23:30)
[2021-02-26] MEDS ORDERED: ALBUTEROL FS 2.5 MG/3 ML VIAL.NEB NEB ONE (23:30)
[2021-02-26] MEDS ORDERED: SODIUM POLYSTYRENE SULFONATE 15 G/60 ML BOTTLE PO ONE (23:30)
[2021-02-26] MEDS ORDERED: FUROSEMIDE 40 MG/4 ML VIAL IV ONE (23:30)
--- NOTE | 2021-02-26 23:45 | NUR ---
MOVE PACKET SUBMITTED
[2021-02-27] MEDS ORDERED: ALBUTEROL FS 2.5 MG/3 ML VIAL.NEB ONE (00:19)
--- NOTE | 2021-02-27 00:20 | NUR ---
EPIC PANEL PAGED
[2021-02-27] MEDS ORDERED: ASPIRIN 325 MG TABLET ONE (00:27)
[2021-02-27] MEDS ORDERED: ASPIRIN 325 MG TABLET PO ONE (00:30)
--- NOTE | 2021-02-27 00:34 | NUR ---
MRSA SWAB COLLECTED AND SENT TO LAB. PATIENT'S BELONGINGS LIST DONE.
--- NOTE | 2021-02-27 00:56 | NUR ---
DR. GUZMAN TALKING TO CHANA IBANEZ
[2021-02-27] MEDS ORDERED: DEXTROSE 50%-WATER 50 ML DISP.SYRIN IV PRN (01:00)
[2021-02-27] MEDS ORDERED: ACETAMINOPHEN 325 MG TABLET PO PRN (01:00)
[2021-02-27] MEDS ORDERED: ONDANSETRON HCL/PF 4 MG/2 ML VIAL IVP PRN (01:00)
[2021-02-27] MEDS ORDERED: Z GUARD REMEDY 2 OZ OINT TP PRN (01:00)
--- NOTE | 2021-02-27 01:01 | NUR ---
REPORT GIVEN TO JOANNA REYNA
--- NOTE | 2021-02-27 01:13 | NUR ---
transferring pt to 119 per acls
--- NOTE | 2021-02-27 01:30 | NUR ---
ADMITTING NOTE PATIENT ARRIVED TO [facility] FROM ER AT 0125, A/O X4, ON 4 L O2 VIA NC, O2 SAT AT TIME OF ADMISSION IS 100%, NO SIGNS OF RESPIRATORY DISTRESS NOTED WHILE AT REST; PATIENT IS ABLE TO VERBALIZE NEEDS, NO SIGNIFICANT FINDINGS UPON INITIAL ASSESSMENT. WILL CONTINUE TO MONITOR FOR CONTINUITY OF CARE.
[2021-02-27 04:00] VITALS: BP 148/65
--- NOTE | 2021-02-27 04:40 | NUR ---
RN NOTE PT IS A/O X4, SPOKE WITH SISTER ADILENE WHO IS DPOA, WHEN NEEDED SAID SHE WILL FAX OVER FORM. GAVE HER FAX NUMBER. PER SISTER PT HAS A 3RD GRADE READING/WRITING LEVEL BUT IS ABLE TO UNDERSTAND CONCEPTS WHEN EXPLAINED.
--- NOTE | 2021-02-27 05:00 | NUR ---
RN PROGRESS NOTE PATIENT UNDERWENT DIALYSIS TREATMENT AND YIELDED 3 LITERS OF DIALYSIS OUTPUT. VITAL SINGS REMAIN STABLE, BP 148/65, O2 SAT 100%, HR 92, TEMP 98.2. PATIENT EXPRESSES NO SIGNS OF DISTRESS. PATIENT REMAINS NSR ON TELE MONITOR. WILL CONTINUE TO MONITOR FOR ANY CHANGES IN HEALTH STATUS.
--- NOTE | 2021-02-27 05:13 | NUR ---
RN NOTE- SISTER FIRST TO CALL SISTER ADILENE, CALL BACK NUMBER [phone]
--- NOTE | 2021-02-27 06:53 | NUR ---
RN CLOSING NOTE NO SIGNIFICANT CHANGES NOTED, PATIENT REMAINS A/O X4, ON 4 L O2 VIA NC, O2 SAT AT THIS TIME IS 100%, NO SIGNS OF RESPIRATORY DISTRESS NOTED WHILE AT REST; PATIENT IS ABLE TO VERBALIZE NEEDS, NO SIGNIFICANT CHANGES FOLLOWING DIALYSIS AT 0500. PATIENT IS UNDER A RENAL DIET, ON TELE MONITOR NSR RANGING BETWEEN 60S-70S. R WRIST IV ACCESS 20 G REMAINS PATENT WITH NO SIGNS OF INFILTRATION. WILL ENDORSE TO DAY SHIFT NURSE FOR CONTINUITY OF CARE
--- NOTE | 2021-02-27 07:30 | NUR ---
RN NOTE; PT RECEIVE ASLEEP, A/O X4, O2SAT 100 VIA NC ON 4 L. NO S/SX OF DISTRESS AND DISCOMFORT. PT ON TELE MONITOR, NSR, HR 60-70. 02/26/21 POTASSIUM OF 7.9 KAYEXALATE GIVE PT HAD HD AND 3L OUT AT PREVIOUS SHIFT. MORNING LABS POTASSIUM OF 3.8. LEFT AV FISTULA NOTED. PALPABLE THRILL AND AUDIBLE BRUIT UPON AUSCULTATION. PT AMBULATORY AND HAS SKIN DRYNESS ON CALF AND OPEN WOUND NOTED. IV LOCATED AT RT WRIST #20 G, PATENT AND INTACT SAFETY MEASURES IMPLEMENTED, BED AT LOW POSITION, WHEEL LOCKED, SIDERAILSX2 UP CALL LIGHT WITHIN REACH. WILL CONTINUE AND MONITOR PLAN OF CARE
[2021-02-27 08:00] VITALS: BP 130/79
[2021-02-27] MEDS: BLOOD SUGAR DIAGNOSTIC 1 EACH STRIP IN SCH ×4 (08:07→23:30)
[2021-02-27] MEDS: INSULIN REGULAR, HUMAN 100 UNIT/ML 3 ML VIAL SQ PRN ×4 (08:10→23:31)
[2021-02-27 09:32] LABS: POTASSIUM 3.8 mmol/L (3.5-5.1)
--- NOTE | 2021-02-27 09:41 | NUR ---
WOUND CARE CONSULT: REVIEWED CHART,NURSING DOCUMENTATION AND PHOTOS WHICH INDICATE DISCOLORATION,SCARRING TO LOWER LEGS, PRESENT ON ADMISSION. DPM CONSULT RECOMMENDED. DR WEBSTER NOTIFIED. IN AGREEMENT WITH PLAN OF CARE.
[2021-02-27 12:00] VITALS: BP 127/77
--- NOTE | 2021-02-27 12:30 | NUR ---
RN NOTE PATIENT SEEN BY DR. MULLER, UPDATED REGARDING PATIENT CURRENT CONDITION.
[2021-02-27 16:00] VITALS: BP 130/79
--- NOTE | 2021-02-27 18:25 | NUR ---
RN NOTE NOTIFIED DR. MULLER TROPONIN OF 0.390.
--- NOTE | 2021-02-27 18:37 | NUR ---
RN NOTE; PT REMAIN AWAKE, A/O X4, O2SAT 100 VIA NC, TITRATED TO 3 L. NO S/SX OF DISTRESS AND DISCOMFORT. PT ON TELE MONITOR, NSR, HR 73.. MORNING LABS POTASSIUM OF 3.8. LEFT AV FISTULA NOTED. PALPABLE THRILL AND AUDIBLE BRUIT UPON AUSCULTATION. TROPONIN ELEVATED TO 0.[address] MULLER. , PT AMBULATORY AND HAS SKIN DRYNESS ON CALF AND OPEN WOUND NOTED. IV LOCATED AT RT WRIST #20 G, PATENT AND INTACT. PT HAD 2 BM, BLOOD SUGAR 86 AT 1700, SAFETY MEASURES IMPLEMENTED, BED AT LOW POSITION, WHEEL LOCKED, SIDERAILSX2 UP CALL LIGHT WITHIN REACH. WILL CONTINUE PLAN OF CARE WILL ENDORSE TO RISK CONTROL SPECIALIST.
[2021-02-27 20:00] VITALS: BP 148/88
[2021-02-28] VITALS: BP 165/89
[2021-02-28 04:41] VITALS: BP 156/80
--- NOTE | 2021-02-28 06:51 | NUR ---
RN CLOSING NOTE PT IS LYING IN BED ASLEEP, A/O X4, O2SAT 97 VIA NC ON 3 L. NO S/SX OF DISTRESS AND DISCOMFORT. PT ON TELE MONITOR, NSR, HR 60-70. LEFT AV FISTULA NOTED. PT AMBULATORY AND HAS SKIN DRYNESS ON CALF AND OPEN WOUND NOTED. IV LOCATED AT RT WRIST #20 G, PATENT AND INTACT SAFETY MEASURES IMPLEMENTED, BED AT LOW POSITION, WHEEL LOCKED, SIDERAILSX2 UP CALL LIGHT WITHIN REACH. NO PLAN FOR HD SCHEDULED FOR TODAY AT THIS TIME. WILL ENDORSE TO DAY SHIFT NURSE FOR [place].
--- NOTE | 2021-02-28 07:30 | NUR ---
RN NOTE PATIENT AWAKE IN BED, ALERT AND ORIENTED X4, ABLE TO VERBALIZE NEEDS, ON TELE MONITOR SR WITH RIGHT WRIST IV SITE PATENT FLUSHING WELL, PATIENT WITH LEFT AV FISTULA PALPABLE THRILL AND BRUIT AUSCULTATED, SAFETY MEASURES OBSERVED, CALL LIGHT WITHIN REACH, WILL CONTINUE TO MONITOR.
[2021-02-28 07:42] LABS: BASOPHILS # (AUTO) 0.1 K/uL (0.0-0.2); BASOPHILS % (AUTO) 1.4 % (0.0-2.0); EOSINOPHILS % (AUTO) 8.2 % (0.0-6.0); HEMATOCRIT 33 % (39-51); HEMOGLOBIN 10.6 g/dL (13.5-17.5); LYMPHOCYTES # (AUTO) 0.9 K/uL (0.8-4.8); LYMPHOCYTES % (AUTO) 13.3 % (20.0-44.0); MEAN CORPUSCULAR HGB CONC 32 g/dl (31.0-36.0); MEAN CORPUSCULAR VOLUME 84 fL (80-96); MONOCYTES # (AUTO) 0.5 K/uL (0.1-1.30); MONOCYTES % (AUTO) 7.4 % (2.0-12.0); NEUTROPHILS # (AUTO) 4.9 K/uL (1.8-8.9); NEUTROPHILS % (AUTO) 69.7 % (43.0-81.0); PLATELET COUNT (AUTO) 193 K/uL (150-450); RED BLOOD CELL COUNT(AUTO) 3.99 MIL/uL (4.5-6.0)
[2021-02-28 07:59] LABS: ALBUMIN 3.2 g/dL (3.4-5.0); BILIRUBIN,TOTAL 0.6 mg/dL (0.2-1.0); CALCIUM, SERUM 8.7 mg/dL (8.5-10.1); MAGNESIUM 2.5 mg/dL (1.8-2.4); POTASSIUM 6.1 mmol/L (3.5-5.1); TOTAL PROTEIN, SERUM 7.2 g/dL (6.4-8.2)
[2021-02-28 08:00] VITALS: BP 150/84
[2021-02-28] MEDS: BLOOD SUGAR DIAGNOSTIC 1 EACH STRIP IN SCH ×4 (08:08→22:23)
[2021-02-28 08:09] LABS: CREATININE 8.2 mg/dL (0.6-1.3)
[2021-02-28 08:10] LABS: PHOSPHORUS 9.9 mg/dL (2.5-4.9)
[2021-02-28] MEDS: INSULIN REGULAR, HUMAN 100 UNIT/ML 3 ML VIAL SQ PRN ×3 (08:11→17:59)
--- NOTE | 2021-02-28 08:15 | NUR ---
RN NOTE NOTIFIED Maurisio SAHNI REGARDING PATIENT ELEVATED CREATININE AND PHOSPHORUS.
[2021-02-28] MEDS: ASPIRIN EC 325 MG TABLET.DR PO SCH (08:49)
--- NOTE | 2021-02-28 11:59 | NUR ---
RN NOTE PATIENT ELEVATED BP, NATALIE SAHNI DO ORDERED HYDRALAZINE 25 MG PO Q6H PRN FOR SBP >160
[2021-02-28 12:00] VITALS: BP 172/85
[2021-02-28] MEDS: hydrALAZINE HCL 25 MG TABLET PO PRN ×2 (12:29→22:08)
--- NOTE | 2021-02-28 13:54 | NUR ---
RN NOTE HD TODAY PER DR. SHINE POTASSIUM OF 6.1, CREATININE OF 8.2 BUN OF 59.
[2021-02-28 16:00] VITALS: BP 162/81
[2021-02-28] MEDS: SEVELAMER CARBONATE 800 MG POWD.PACK PO SCH (18:30)
--- NOTE | 2021-02-28 18:33 | NUR ---
RN NOTE PATIENT AWAKE IN BED, ALERT AND ORIENTED X4, ABLE TO VERBALIZE NEEDS, ON TELE MONITOR SR WITH RIGHT WRIST IV SITE PATENT FLUSHING WELL, PATIENT WITH LEFT AV FISTULA PALPABLE THRILL AND BRUIT AUSCULTATED , PATIENT ON HD AT THIS TIME, ON SEVELAMER FOR HIGH PHOSPHOROUS, SAFETY MEASURES OBSERVED, CALL LIGHT WITHIN REACH, WILL ENDORSE TO NOC SHIFT.
--- NOTE | 2021-02-28 19:15 | NUR ---
RN NOTE RECEIVED PATIENT IN BED, AO X 4, IN NO S/SX OF ACUTE DISTRESS AT THIS TIME. SATURATION AT 100% ON ROOM AIR, SR ON THE MONITOR, HR IS 77. NOTED IV SITE AT R WRIST 20G PATENT AND FLUSHING WELL, NO S/S OF INFECTION OR INFILTRATION, NOTED L AV FISTULA, NO SIGN OF INFECTION OR BLEEDING NOTED. PATIENT AMBULATORY WITH STEADY GAIT. SAFETY MEASURES IMPLEMENTED. HEAD OF BED ELEVATED. BED IS LOCKED, IN LOWEST POSITION AND SIDE RAILS UP. CALL LIGHT WITHIN REACH OF THE PATIENT. WILL CONTINUE TO MONITOR AND REASSESS FOR ANY CHANGES. Addendum: 03/01/21 at 0207 by BRAYDEN GONZALEZ RN PATIENT ON 3L VIA NC
[2021-03-01] VITALS: BP 159/84
--- NOTE | 2021-03-01 01:05 | NUR ---
RN NOTE PATIENT REFUSED TELE MONITOR, EXPLAINED IMPORTANCE OF TELEMETRY, PT STILL REFUSED. HEALTH SAFETY MANAGER MADE AWARE
--- NOTE | 2021-03-01 02:33 | NUR ---
RN NOTE PATIENT NON COMPLIANT, STILL REFUSES TELE MONITOR, STATES HE WANTS TO LEAVE THE HOSPITAL TOMORROW.
[2021-03-01 04:00] VITALS: BP 152/78
[2021-03-01] MEDS: hydrALAZINE HCL 25 MG TABLET PO PRN (04:51)
[2021-03-01 07:45] LABS: BASOPHILS # (AUTO) 0.1 K/uL (0.0-0.2); EOSINOPHILS % (AUTO) 6.9 % (0.0-6.0); HEMATOCRIT 35 % (39-51); HEMOGLOBIN 11.1 g/dL (13.5-17.5); LYMPHOCYTES # (AUTO) 0.7 K/uL (0.8-4.8); LYMPHOCYTES % (AUTO) 9.3 % (20.0-44.0); MEAN CORPUSCULAR HGB CONC 32 g/dl (31.0-36.0); MEAN CORPUSCULAR VOLUME 84 fL (80-96); MONOCYTES # (AUTO) 0.6 K/uL (0.1-1.30); MONOCYTES % (AUTO) 7.6 % (2.0-12.0); NEUTROPHILS # (AUTO) 5.6 K/uL (1.8-8.9); NEUTROPHILS % (AUTO) 75.2 % (43.0-81.0); PLATELET COUNT (AUTO) 180 K/uL (150-450); RED BLOOD CELL COUNT(AUTO) 4.19 MIL/uL (4.5-6.0); WHITE BLOOD COUNT (AUTO) 7.5 K/uL (4.3-11.0)
[2021-03-01 08:00] VITALS: BP 186/89
[2021-03-01 08:09] LABS: CREATININE 6.4 mg/dL (0.6-1.3); MAGNESIUM 2.3 mg/dL (1.8-2.4); PHOSPHORUS 7.2 mg/dL (2.5-4.9); POTASSIUM 5.1 mmol/L (3.5-5.1)
[2021-03-01] MEDS: BLOOD SUGAR DIAGNOSTIC 1 EACH STRIP IN SCH ×2 (08:16→11:37)
--- NOTE | 2021-03-01 08:19 | NUR ---
WOUND CARE FOLLOW UP: PT NOTED TO HAVE DISCOLORATION, DRY SKIN AND SCARRING TO BILATERAL LOWER LEGS, PRESENT ON ADMISSION. PT REQUESTING A &D OINTMENT FOR EXTREMITIES. MD IN AGREEMENT WITH PLAN OF CARE. RN TO DISCUSS RT ELBOW CHRONIC SWELLING WITH PMD TODAY.
[2021-03-01] MEDS: SEVELAMER CARBONATE 800 MG POWD.PACK PO SCH ×2 (08:43→13:00)
[2021-03-01] MEDS: ASPIRIN EC 325 MG TABLET.DR PO SCH (08:44)
[2021-03-01] MEDS ORDERED: VITAMINS A AND D 56.7 GM TUBE TP SCH ×2 (09:00→17:00)
== END 2021-03-01 14:15 | disposition home or self-care (01) | DRG 133 ==
LOC: ER 21:24 → TELE1 02-27 00:33 → TELE-TD 02-27 03:50 → TELE1 02-27 18:28
PROVIDERS: ATTEND Student in an Organized Health Care Education/Training Program
PROC: 5A1D70Z Performance of Urinary Filtration, Intermittent, Less than 6 Hours Per Day (ICD-10-PCS; principal; 2021-02-27)
DX: J96.20 Acute and chronic respiratory failure, unspecified whether with hypoxia or hypercapnia (principal); I12.0 Hypertensive chronic kidney disease with stage 5 chronic kidney disease or end stage renal disease; E10.22 Type 1 diabetes mellitus with diabetic chronic kidney disease; D63.8 Anemia in other chronic diseases classified elsewhere; E87.5 Hyperkalemia; Z20.822 Contact with and (suspected) exposure to COVID-19; I25.10 Atherosclerotic heart disease of native coronary artery without angina pectoris; J44.9 Chronic obstructive pulmonary disease, unspecified; N18.6 End stage renal disease; Z99.2 Dependence on renal dialysis; Z95.1 Presence of aortocoronary bypass graft; Z86.718 Personal history of other venous thrombosis and embolism; F17.210 Nicotine dependence, cigarettes, uncomplicated; Z79.4 Long term (current) use of insulin; Z79.899 Other long term (current) drug therapy; E66.9 Obesity, unspecified; E78.5 Hyperlipidemia, unspecified; E87.70 Fluid overload, unspecified; F32.A Depression, unspecified; G25.81 Restless legs syndrome; L85.3 Xerosis cutis; Z99.81 Dependence on supplemental oxygen; R77.8 Other specified abnormalities of plasma proteins; Z68.27 Body mass index [BMI] 27.0-27.9, adult
CPT/HCPCS: 36415; 36600; 71045-TC; 80048-TC; 80053-TC; 80061-TC; 80076-TC; 82803-TC; 82962-TC; 83605-TC; 83735-TC; 83880; 84100-TC; 84484-TC; 85025-TC; 85730-TC; 86706; 87040-TC; 87081-TC; 87340; 90935-TC; 93307-TC; C9803; G0378; J0610; J1815; J1940; J3490; J7030; J7060; U0003

== ENCOUNTER 2022-09-10 01:06 | Emergency (ER) | payer MEDICARE, OTHER ==
[~2022-09-10] VITALS: Ht 172.7 cm; Wt 77.1 kg
--- NOTE | 2022-09-10 01:07 | NUR ---
ESTEFANÍA 38 FROM HOME FOR C/O SOB SINCE YESTERDAY, SATTING 92% ON 3LPM VIA NV
[2022-09-10] MEDS ORDERED: IPRATROPIUM NEB FS 0.5 MG/2.5 ML AMPUL.NEB NEB ONE (01:30)
[2022-09-10] MEDS ORDERED: predniSONE 20 MG TABLET PO ONE (01:30)
[2022-09-10] MEDS ORDERED: ALBUTEROL FS 2.5 MG/3 ML VIAL.NEB NEB ONE (01:30)
[2022-09-10] MEDS ORDERED: predniSONE 20 MG TABLET ONE (01:33)
[2022-09-10] MEDS ORDERED: ALBUTEROL FS 2.5 MG/3 ML VIAL.NEB ONE (01:33)
[2022-09-10] MEDS ORDERED: IPRATROPIUM NEB FS 0.5 MG/2.5 ML AMPUL.NEB ONE (01:34)
--- NOTE | 2022-09-10 01:38 | NUR ---
RT AT BEDSIDE FOR BREATHING TREATMENT
[2022-09-10 02:12] LABS: BASOPHILS # (AUTO) 0.1 K/uL (0.0-0.2); BASOPHILS % (AUTO) 1.3 % (0.0-2.0); EOSINOPHILS % (AUTO) 5.2 % (0.0-6.0); HEMATOCRIT 30 % (39-51); HEMOGLOBIN 10.1 g/dL (13.5-17.5); LYMPHOCYTES % (AUTO) 14.5 % (20.0-44.0); MEAN CORPUSCULAR HGB CONC 33 g/dl (31.0-36.0); MEAN CORPUSCULAR VOLUME 89 fL (80-96); MONOCYTES # (AUTO) 0.4 K/uL (0.1-1.30); MONOCYTES % (AUTO) 5.9 % (2.0-12.0); NEUTROPHILS # (AUTO) 5.2 K/uL (1.8-8.9); NEUTROPHILS % (AUTO) 73.1 % (43.0-81.0); PLATELET COUNT (AUTO) 128 K/uL (150-450); RED BLOOD CELL COUNT(AUTO) 3.39 MIL/uL (4.5-6.0); WHITE BLOOD COUNT (AUTO) 7.1 K/uL (4.3-11.0)
[2022-09-10 02:23] LABS: POTASSIUM 5.2 mmol/L (3.5-5.1)
[2022-09-10 02:37] LABS: CREATININE 9.6 mg/dL (0.6-1.3)
[2022-09-10] MEDS ORDERED: PRED20TA PO (02:44)
[2022-09-10] MEDS ORDERED: AZIT250T13 PO (02:44)
--- NOTE | 2022-09-10 03:23 | NUR ---
PT WAS D/C'D HOME VIA LIFT PROVIDED BY CALL THE CAR. Patient discharged to home in stable condition. Written and verbal after care instructions given. Patient verbalizes understanding of instruction.
[2022-09-10 03:27] VITALS: BP 175/75
== END 2022-09-10 03:28 | disposition home or self-care (01) ==
LOC: ER 01:07
DX: J44.1 Chronic obstructive pulmonary disease with (acute) exacerbation (principal); E11.22 Type 2 diabetes mellitus with diabetic chronic kidney disease; I12.0 Hypertensive chronic kidney disease with stage 5 chronic kidney disease or end stage renal disease; N18.6 End stage renal disease; Z99.2 Dependence on renal dialysis; Z98.890 Other specified postprocedural states; F17.200 Nicotine dependence, unspecified, uncomplicated; Z79.899 Other long term (current) drug therapy; Z88.1 Allergy status to other antibiotic agents
CPT/HCPCS: 99285; 71045; 93005; 85025; 80048; 36415; 94799; 94644; J7512

== ENCOUNTER 2023-03-11 19:34 | Inpatient (IN) | payer MEDICARE, OTHER ==
[~2023-03-11] VITALS: Ht 175.3 cm; Wt 77.3 kg
[~2023-03-11 19:34] MED LIST changes: +AZIT250T13 PO; +PRED20TA PO
[2023-03-11 20:54] LABS: BASOPHILS # (AUTO) 0.1 K/uL (0.0-0.2); BASOPHILS % (AUTO) 0.6 % (0.0-2.0); EOSINOPHILS # (AUTO) 0.3 K/uL (0.0-0.7); HEMATOCRIT 37 % (39-51); HEMOGLOBIN 12.5 g/dL (13.5-17.5); LYMPHOCYTES # (AUTO) 0.9 K/uL (0.8-4.8); LYMPHOCYTES % (AUTO) 10.2 % (20.0-44.0); MEAN CORPUSCULAR HEMOGLOBIN 31 PG (26.0-33.0); MEAN CORPUSCULAR HGB CONC 33 g/dl (31.0-36.0); MEAN CORPUSCULAR VOLUME 93 fL (80-96); MONOCYTES # (AUTO) 0.6 K/uL (0.1-1.30); MONOCYTES % (AUTO) 7.1 % (2.0-12.0); NEUTROPHILS # (AUTO) 6.9 K/uL (1.8-8.9); NEUTROPHILS % (AUTO) 78.1 % (43.0-81.0); PLATELET COUNT (AUTO) 139 K/uL (150-450); RED BLOOD CELL COUNT(AUTO) 4.01 MIL/uL (4.5-6.0); RED CELL DISTRIBUTION WIDTH 15.2 % (11.5-15.0); WHITE BLOOD COUNT (AUTO) 8.8 K/uL (4.3-11.0)
[2023-03-11 21:05] LABS: CALCIUM, SERUM 9.6 mg/dL (8.5-10.1); CARBON DIOXIDE 30 mmol/L (21-32); CHLORIDE 92 mmol/L (98-107); CREATININE 6.7 mg/dL (0.6-1.3); GLUCOSE 116 mg/dL (74-106); POTASSIUM 3.6 mmol/L (3.5-5.1); SODIUM SERUM 134 mmol/L (136-145); UREA NITROGEN, BLOOD 31 mg/dL (7-18)
[2023-03-11 23:52] VITALS: BP 157/83; TEMP 98.1; O2SAT 99
[2023-03-12] MEDS ORDERED: MAGNESIUM HYDROXIDE 30 ML UDC PO PRN (01:00)
[2023-03-12] MEDS ORDERED: ACETAMINOPHEN 325 MG TABLET PO PRN (01:00)
[2023-03-12] MEDS ORDERED: Z GUARD REMEDY 4 OZ OINT TP PRN (01:00)
[2023-03-12] MEDS ORDERED: MAG HYDROX/AL HYDROX/SIMETH 30 ML UDC PO PRN (01:00)
[2023-03-12] MEDS ORDERED: DEXTROSE 50%-WATER 50 ML DISP.SYRIN IV PRN (01:00)
[2023-03-12] MEDS ORDERED: ZOLPIDEM TARTRATE 5 MG TABLET PO PRN (01:00)
[2023-03-12] MEDS ORDERED: ONDANSETRON HCL/PF 4 MG/2 ML VIAL IVP PRN (01:00)
[2023-03-12 04:56] VITALS: BP 153/81; TEMP 99; O2SAT 96
[2023-03-12 07:45] LABS: BASOPHILS # (AUTO) 0.1 K/uL (0.0-0.2); EOSINOPHILS # (AUTO) 0.2 K/uL (0.0-0.7); EOSINOPHILS % (AUTO) 3.8 % (0.0-6.0); HEMATOCRIT 35 % (39-51); HEMOGLOBIN 11.6 g/dL (13.5-17.5); LYMPHOCYTES # (AUTO) 1.3 K/uL (0.8-4.8); LYMPHOCYTES % (AUTO) 21.6 % (20.0-44.0); MEAN CORPUSCULAR HEMOGLOBIN 31 PG (26.0-33.0); MEAN CORPUSCULAR HGB CONC 34 g/dl (31.0-36.0); MEAN CORPUSCULAR VOLUME 92 fL (80-96); MONOCYTES # (AUTO) 0.5 K/uL (0.1-1.30); MONOCYTES % (AUTO) 7.9 % (2.0-12.0); NEUTROPHILS # (AUTO) 4.1 K/uL (1.8-8.9); NEUTROPHILS % (AUTO) 65.7 % (43.0-81.0); PLATELET COUNT (AUTO) 135 K/uL (150-450); RED BLOOD CELL COUNT(AUTO) 3.77 MIL/uL (4.5-6.0); RED CELL DISTRIBUTION WIDTH 15.1 % (11.5-15.0); WHITE BLOOD COUNT (AUTO) 6.2 K/uL (4.3-11.0)
[2023-03-12] MEDS: BLOOD SUGAR DIAGNOSTIC 1 EACH STRIP IN SCH ×4 (07:48→22:00)
[2023-03-12] MEDS: INSULIN REGULAR, HUMAN 100 UNIT/ML 3 ML VIAL SQ PRN ×4 (07:48→23:17)
[2023-03-12 08:18] LABS: CALCIUM, SERUM 9.6 mg/dL (8.5-10.1); MAGNESIUM 2.3 mg/dL (1.8-2.4); PHOSPHORUS 7.8 mg/dL (2.5-4.9); POTASSIUM 3.8 mmol/L (3.5-5.1)
[2023-03-12 08:31] LABS: THYROID STIMULATING HORMONE 0.964 uIU/mL (0.358-3.74)
[2023-03-12 08:34] LABS: CREATININE 7.5 mg/dL (0.6-1.3)
[2023-03-12] MEDS: ASPIRIN 81 MG TAB.CHEW PO SCH (08:35)
[2023-03-12] MEDS: HEPARIN SODIUM, PORCINE 5000 UNITS/1 ML VIAL SQ SCH ×2 (08:37→21:25)
[2023-03-12] MEDS ORDERED: METO50TA16 PO (08:49)
[2023-03-12] MEDS ORDERED: APIX5TAB PO (08:49)
[2023-03-12] MEDS ORDERED: HYDR-4077 PO (08:49)
[2023-03-12] MEDS ORDERED: FERR325T23 PO (08:49)
[2023-03-12] MEDS ORDERED: GABA800T11 PO (08:49)
[2023-03-12] MEDS ORDERED: NIFE-57 PO (08:49)
[2023-03-12] MEDS ORDERED: CLOP75TA15 PO (08:49)
[2023-03-12] MEDS ORDERED: FURO80TA85 PO (08:49)
[2023-03-12] MEDS: IPRATROPIUM NEB FS 0.5 MG/2.5 ML AMPUL.NEB NEB SCH ×3 (10:00→19:57)
[2023-03-12 13:26] VITALS: O2SAT 97
[2023-03-12 13:34] VITALS: O2SAT 98
[2023-03-12] MEDS: METOPROLOL TARTRATE 50 MG TABLET PO SCH ×3 (16:50→21:21)
[2023-03-12] MEDS: clonazePAM 1 MG TABLET PO PRN (17:07)
[2023-03-12 19:57] VITALS: O2SAT 96
[2023-03-12 20:08] VITALS: O2SAT 98
[2023-03-13] VITALS (12 sets, daily range): BP systolic 124–148; BP diastolic 64–77; TEMP 97.9; O2SAT 95–99
[2023-03-13] MEDS: IPRATROPIUM NEB FS 0.5 MG/2.5 ML AMPUL.NEB NEB SCH ×4 (02:18→20:25)
[2023-03-13 06:22] LABS: BASOPHILS # (AUTO) 0.1 K/uL (0.0-0.2); BASOPHILS % (AUTO) 0.9 % (0.0-2.0); EOSINOPHILS # (AUTO) 0.3 K/uL (0.0-0.7); EOSINOPHILS % (AUTO) 5.9 % (0.0-6.0); HEMATOCRIT 34 % (39-51); HEMOGLOBIN 11.3 g/dL (13.5-17.5); LYMPHOCYTES # (AUTO) 1.4 K/uL (0.8-4.8); LYMPHOCYTES % (AUTO) 25.9 % (20.0-44.0); MEAN CORPUSCULAR HEMOGLOBIN 31 PG (26.0-33.0); MEAN CORPUSCULAR HGB CONC 33 g/dl (31.0-36.0); MEAN CORPUSCULAR VOLUME 93 fL (80-96); MONOCYTES # (AUTO) 0.4 K/uL (0.1-1.30); MONOCYTES % (AUTO) 6.4 % (2.0-12.0); NEUTROPHILS # (AUTO) 3.4 K/uL (1.8-8.9); NEUTROPHILS % (AUTO) 60.9 % (43.0-81.0); PLATELET COUNT (AUTO) 129 K/uL (150-450); RED BLOOD CELL COUNT(AUTO) 3.65 MIL/uL (4.5-6.0); RED CELL DISTRIBUTION WIDTH 15.3 % (11.5-15.0); WHITE BLOOD COUNT (AUTO) 5.5 K/uL (4.3-11.0)
[2023-03-13] MEDS: BLOOD SUGAR DIAGNOSTIC 1 EACH STRIP IN SCH ×3 (06:52→17:12)
[2023-03-13 06:58] LABS: CALCIUM, SERUM 9.6 mg/dL (8.5-10.1); MAGNESIUM 2.5 mg/dL (1.8-2.4); POTASSIUM 4.5 mmol/L (3.5-5.1)
[2023-03-13 07:26] LABS: CREATININE 9.6 mg/dL (0.6-1.3)
[2023-03-13 08:06] LABS: HEPATITIS B SURFACE AB Non Reactive (.)
[2023-03-13] MEDS: HEPARIN SODIUM, PORCINE 5000 UNITS/1 ML VIAL SQ SCH ×2 (10:58→20:09)
[2023-03-13] MEDS: ASPIRIN 81 MG TAB.CHEW PO SCH (10:59)
[2023-03-13] MEDS: METOPROLOL TARTRATE 50 MG TABLET PO SCH ×2 (10:59→20:10)
[2023-03-13] MEDS: GABAPENTIN 400 MG CAPSULE PO SCH (17:12)
[2023-03-13] MEDS: clonazePAM 1 MG TABLET PO PRN (18:25)
[2023-03-14] VITALS: BP 137/56; TEMP 97.8; O2SAT 100
[2023-03-14] MEDS: BLOOD SUGAR DIAGNOSTIC 1 EACH STRIP IN SCH ×3 (00:23→11:59)
[2023-03-14] MEDS: INSULIN REGULAR, HUMAN 100 UNIT/ML 3 ML VIAL SQ PRN ×3 (00:26→11:59)
[2023-03-14] MEDS: IPRATROPIUM NEB FS 0.5 MG/2.5 ML AMPUL.NEB NEB SCH ×3 (01:30→13:06)
[2023-03-14 04:00] VITALS: BP 141/82; TEMP 97.8; O2SAT 99
[2023-03-14 06:38] LABS: EOSINOPHILS # (AUTO) 0.3 K/uL (0.0-0.7); HEMATOCRIT 32 % (39-51); MEAN CORPUSCULAR HEMOGLOBIN 31 PG (26.0-33.0); MEAN CORPUSCULAR HGB CONC 34 g/dl (31.0-36.0); MEAN CORPUSCULAR VOLUME 92 fL (80-96); MONOCYTES # (AUTO) 0.4 K/uL (0.1-1.30); NEUTROPHILS # (AUTO) 2.9 K/uL (1.8-8.9); PLATELET COUNT (AUTO) 126 K/uL (150-450); RED BLOOD CELL COUNT(AUTO) 3.52 MIL/uL (4.5-6.0); RED CELL DISTRIBUTION WIDTH 14.9 % (11.5-15.0); WHITE BLOOD COUNT (AUTO) 4.6 K/uL (4.3-11.0)
[2023-03-14 07:09] LABS: CALCIUM, SERUM 9.6 mg/dL (8.5-10.1); CREATININE 6.3 mg/dL (0.6-1.3); MAGNESIUM 2.3 mg/dL (1.8-2.4); PHOSPHORUS 5.6 mg/dL (2.5-4.9)
[2023-03-14 07:35] VITALS: O2SAT 96
[2023-03-14 08:00] VITALS: BP 143/68; TEMP 97.9; O2SAT 96
[2023-03-14] MEDS: ASPIRIN 81 MG TAB.CHEW PO SCH (08:42)
[2023-03-14] MEDS: GABAPENTIN 400 MG CAPSULE PO SCH ×2 (08:42→13:00)
[2023-03-14] MEDS: METOPROLOL TARTRATE 50 MG TABLET PO SCH (08:43)
[2023-03-14] MEDS: HEPARIN SODIUM, PORCINE 5000 UNITS/1 ML VIAL SQ SCH (08:44)
[2023-03-14] MEDS: clonazePAM 1 MG TABLET PO PRN (08:47)
[2023-03-14] MEDS ORDERED: BACL10TA PO (11:48)
[2023-03-14] MEDS ORDERED: ASPI-1169 PO (11:48)
[2023-03-14 12:00] VITALS: BP 127/74; TEMP 98; O2SAT 96
== END 2023-03-14 13:15 | disposition home or self-care (01) | DRG 640 ==
LOC: ER 19:37 → TELE1 21:42 → TELE 22:17 → TELE1 22:53
PROVIDERS: ADMIT Nurse Practitioner Acute Care; ATTEND Nurse Practitioner Acute Care
PROC: 5A1D70Z Performance of Urinary Filtration, Intermittent, Less than 6 Hours Per Day (ICD-10-PCS; principal; 2023-03-13)
DX: E87.8 Other disorders of electrolyte and fluid balance, not elsewhere classified (principal); N18.6 End stage renal disease; I25.110 Atherosclerotic heart disease of native coronary artery with unstable angina pectoris; I12.0 Hypertensive chronic kidney disease with stage 5 chronic kidney disease or end stage renal disease; E87.1 Hypo-osmolality and hyponatremia; J44.9 Chronic obstructive pulmonary disease, unspecified; D69.6 Thrombocytopenia, unspecified; E66.9 Obesity, unspecified; E78.5 Hyperlipidemia, unspecified; F17.210 Nicotine dependence, cigarettes, uncomplicated; F32.A Depression, unspecified; F41.9 Anxiety disorder, unspecified; G25.81 Restless legs syndrome; E10.22 Type 1 diabetes mellitus with diabetic chronic kidney disease; E10.42 Type 1 diabetes mellitus with diabetic polyneuropathy; Z79.4 Long term (current) use of insulin; Z86.718 Personal history of other venous thrombosis and embolism; Z99.2 Dependence on renal dialysis; Z95.1 Presence of aortocoronary bypass graft; K21.9 Gastro-esophageal reflux disease without esophagitis; F29 Unspecified psychosis not due to a substance or known physiological condition; Z99.81 Dependence on supplemental oxygen; Z68.25 Body mass index [BMI] 25.0-25.9, adult; D63.1 Anemia in chronic kidney disease; Z82.49 Family history of ischemic heart disease and other diseases of the circulatory system
CPT/HCPCS: 36415; 71045-TC; 80048-TC; 80061-TC; 82962-TC; 83735-TC; 84100-TC; 84443-TC; 84484-TC; 85025-TC; 86706; 87340; 90935-TC; 93307-TC; 94799-TC; A9502; G0378; J1644; J1815; J7030